=== PATIENT | female | born 1950 | race Caucasian/White ===

== ENCOUNTER 2019-06-20 14:14 | Inpatient (IN) | payer MEDICARE, OTHER ==
[~2019-06-20] VITALS: Ht 165.1 cm; Wt 84.5 kg
[2019-06-20] MEDS ORDERED: SODIUM CHLORIDE 0.9% 500 ML IVB ONE (14:43)
[2019-06-20] MEDS ORDERED: KETOROLAC TROMETH 15 mg/ml 1ML VL IV ONE (14:45)
[2019-06-20] MEDS ORDERED: ONDANSETRON HCL 4 MG/2 ML VIAL IV ONE (14:45)
[2019-06-20] MEDS ORDERED: KETOROLAC TROMETH 30 MG/ML 1ML VIAL ONE (15:14)
[2019-06-20 15:18] LABS: Basophils # (auto) 0.1 10 ^3/uL (0-0.2); Basophils % (auto) 0.6 % (0.0-2.0); Eosinophils # (auto) 0 10 ^3/uL (0-0.8); Hematocrit 47.4 % (36.0-46.0); Hemoglobin 14.9 g/dL (12.2-16.2); Lymphocytes # (auto) 2.8 10 ^3/uL (0.4-5.4); Lymphocytes % (auto) 20.1 % (10.0-50.0); Mean Corpuscular Hemoglobin 27.1 pg (28.0-32.0); Mean Corpuscular Hgb Conc. 31.5 g/dL (32.0-36.0); Mean Corpuscular Volume 85.8 fL (80.0-100.0); Monocytes # (auto) 1.5 10 ^3/uL (0-1.3); Monocytes % (auto) 10.8 % (0.0-12.0); Neutrophils # (auto) 9.7 10 ^3/uL (1.6-8.6); Neutrophils % (auto) 68.5 % (37.0-80.0); Platelet Count (auto) 344 10^3/uL (140-450); Red Blood Cells 5.52 10^6/uL (4.0-5.20); Red Cell Distribution Width 14.7 % (11.8-14.3); White Blood Cell 14.2 10^3/uL (4.4-10.8)
[2019-06-20 15:36] LABS: Alanine Aminotransferase 28 U/L (13-56); Albumin 3.9 g/dL (3.4-5.0); Anion Gap 10 (5-15); Aspartate Aminotransferase 45 U/L (15-37); BUN/Creatinine Ratio 16.7; Blood Urea Nitrogen 16 mg/dL (7-18); Calcium 9.8 mg/dL (8.5-10.1); Carbon Dioxide 22 mmol/L (21-32); Chloride 107 mmol/L (98-107); GFR African American 74 mL/min; GFR Non-African American 61 mL/min; Glucose 126 mg/dL (74-106); Lipase 165 U/L (73-393); Magnesium 2.4 mg/dL (1.6-2.6); Potassium 3.3 mmol/L (3.5-5.1); Sodium 139 mmol/L (136-145)
[2019-06-20 15:41] LABS: Alkaline Phosphatase 109 U/L (45-117); Bilirubin, Total 0.9 mg/dL (0.2-1.0); Total Protein 8.4 g/dL (6.4-8.2)
[2019-06-20] MEDS ORDERED: SODIUM CHLORIDE 0.9% 1,000 ML IV SCH (16:36)
[2019-06-20] MEDS ORDERED: METOCLOPRAMIDE HCL 5MG/ml INJ 2ml VIAL IV PRN (16:45)
[2019-06-20] MEDS ORDERED: MAGNESIUM SULFATE 1GM/100ML 100 ML IV ONE (16:45)
[2019-06-20] MEDS ORDERED: POTASSIUM CHL 20MEQ/100ML 100 ML IV ONE (16:45)
[2019-06-20] MEDS ORDERED: DOCUSATE SOD 100 MG CAP PO PRN (16:45)
[2019-06-20] MEDS ORDERED: ALUM & MAG HYDROX-SIMETH LIQ(MAALOX) 30 ML PO PRN (16:45)
[2019-06-20] MEDS ORDERED: hydrALAZINE HCL 20 MG/ML VL IV PRN (16:45)
[2019-06-20] MEDS ORDERED: MORPHINE SULF INJ 2 MG/ML SYRINGE 1ML IV PRN (16:45)
[2019-06-20] MEDS ORDERED: NITROGLYCERIN 0.4 MG SL TAB SL PRN (16:45)
[2019-06-20] MEDS ORDERED: LORazepam 0.5 MG TAB PO PRN (16:45)
[2019-06-20] MEDS ORDERED: POTASSIUM CHL 20 Meq TABLET PO ONE (16:45)
[2019-06-20 17:16] LABS: Urine Bacteria NONE SEEN /hpf (None Seen); Urine Blood Negative /uL (Negative); Urine Mucus FEW (None Seen); Urine Specific Gravity 1.031 (1.001-1.035); Urine WBC 11 /hpf (0 - 5)
[2019-06-20 17:26] LABS: Amphetamine Screen, Urine NEGATIVE (NEGATIVE); Barbiturate Scree,Urine NEGATIVE (NEGATIVE); Benzodiazephine Screen, Urine NEGATIVE (NEGATIVE); Cannabinoid Screen, Urine POSITIVE (NEGATIVE); Cocaine Screen, Urine NEGATIVE (NEGATIVE); Opiate Scree,Urine NEGATIVE (NEGATIVE); Phencyclidine Screen, Urine NEGATIVE (NEGATIVE)
[2019-06-20 18:13] LABS: Cholesterol 221 mg/dL (< 200)
[2019-06-20 18:17] LABS: HDL Cholesterol 46 mg/dL (40-59); LDL Cholesterol 141 mg/dL (< 100); Triglycerides 185 mg/dL (< 150)
[2019-06-20] MEDS: MORPHINE SULF INJ 2 MG/ML SYRINGE 1ML IV PRN (19:05)
[2019-06-20] MEDS ORDERED: ONDANSETRON HCL 4 MG/2 ML VIAL IV PRN (19:15)
[2019-06-20] MEDS ORDERED: cloNIDine HCL 0.1 MG TAB PO PRN (19:15)
[2019-06-20] MEDS: SOD CHL 0.45% WITH 20MEQ KCL 1,000 ML IV SCH (19:15)
[2019-06-20] MEDS ORDERED: cloNIDine HCL 0.1 MG TAB PO ONE (19:15)
[2019-06-20] MEDS ORDERED: ALPRAZolam 0.5 MG TAB PO ONE (19:15)
[2019-06-20] MEDS ORDERED: LISINOPRIL 20 MG TAB PO ONE (19:15)
--- NOTE | 2019-06-20 20:17 | NUR ---
Telemetry admit from ER RENAN OROZCO admitted to Telemetry unit after SBAR received. Patient oriented to CHESTER RAYGOZA RN primary RN, unit, room, bed, and unit policies regarding patient care and visiting hours. Patient now on continuous telemetry monitoring, tele box # 32 and telemetry reading on arrival to unit is sinus rhythm. Patient weighed by bed scale and encouraged to call if they need something. All questions and concerns addressed, patient verbalized understanding.
[2019-06-20 22:00] VITALS: BP 163/80
--- NOTE | 2019-06-20 22:40 | NUR ---
IV REMOVAL IV to left wrist found to be dislodged. Catheter is fully intact. Pressure dressing applied.
--- NOTE | 2019-06-20 22:45 | NUR ---
IV insertion IV access obtained, via clean sterile technique by inserting 22 gauge catheter at right wrist after 1 attempt. IV secured properly. No trauma to site. Patient tolerated well.
[2019-06-20] MEDS: GABAPENTIN 300 MG CAP PO SCH (22:51)
[2019-06-20] MEDS: QUEtiapine FUMARATE 100 MG TAB PO SCH (22:52)
[2019-06-20] MEDS: ATORVASTATIN 20 MG TAB PO SCH (22:52)
[2019-06-20] MEDS: TOPIRAMATE 25 MG TAB PO SCH (22:53)
[2019-06-20] MEDS: metroNIDAZOLE 500MG/100ML 100 ML IV SCH (22:54)
[2019-06-20] MEDS: CIPROFLOXACIN 400MG/200ML 200 ML IV SCH (22:54)
--- NOTE | 2019-06-20 23:25 | NUR ---
FAMILY Spoke with patient's , Kp, who reports that patient has a history of CKD, UTIs, and prescription drug abuse. Updated Kp on POC and all questions answered.
[2019-06-20] MEDS ORDERED: DULO60CA PO (23:46)
[2019-06-20] MEDS ORDERED: ESCI20TA PO (23:46)
[2019-06-20] MEDS ORDERED: BENA40TA83 PO (23:46)
[2019-06-20] MEDS ORDERED: GABA300C10 PO (23:46)
[2019-06-20] MEDS ORDERED: ATOR40TA52 PO (23:46)
[2019-06-20] MEDS ORDERED: ALPR0.5T7 PO (23:46)
[2019-06-20] MEDS ORDERED: TRAZ-181 PO (23:46)
[2019-06-21 00:05] VITALS: BP 163/80
[2019-06-21 05:24] VITALS: BP 122/59
[2019-06-21] MEDS: metroNIDAZOLE 500MG/100ML 100 ML IV SCH (06:16)
[2019-06-21] MEDS: GABAPENTIN 300 MG CAP PO SCH ×3 (06:16→22:14)
[2019-06-21 06:30] LABS: Basophils # (auto) 0.1 10 ^3/uL (0-0.2); Basophils % (auto) 0.5 % (0.0-2.0); Eosinophils # (auto) 0.1 10 ^3/uL (0-0.8); Eosinophils % (auto) 0.5 % (0.0-7.0); Hematocrit 36.4 % (36.0-46.0); Hemoglobin 11.8 g/dL (12.2-16.2); Lymphocytes % (auto) 29.1 % (10.0-50.0); Mean Corpuscular Hemoglobin 27.9 pg (28.0-32.0); Mean Corpuscular Hgb Conc. 32.5 g/dL (32.0-36.0); Monocytes # (auto) 1.4 10 ^3/uL (0-1.3); Monocytes % (auto) 14.1 % (0.0-12.0); Neutrophils # (auto) 5.7 10 ^3/uL (1.6-8.6); Neutrophils % (auto) 55.8 % (37.0-80.0); Platelet Count (auto) 241 10^3/uL (140-450); Red Blood Cells 4.24 10^6/uL (4.0-5.20); Red Cell Distribution Width 14.9 % (11.8-14.3); White Blood Cell 10.2 10^3/uL (4.4-10.8)
[2019-06-21 06:51] LABS: Chloride 113 mmol/L (98-107); Potassium 4.1 mmol/L (3.5-5.1); Sodium 139 mmol/L (136-145)
[2019-06-21 07:06] LABS: Alanine Aminotransferase 25 U/L (13-56); Alkaline Phosphatase 84 U/L (45-117); Anion Gap 7 (5-15); Aspartate Aminotransferase 42 U/L (15-37); Bilirubin, Total 0.7 mg/dL (0.2-1.0); Blood Urea Nitrogen 17 mg/dL (7-18); Calcium 8.5 mg/dL (8.5-10.1); Carbon Dioxide 19 mmol/L (21-32); Cholesterol 176 mg/dL (< 200); Creatine Kinase IFCC 321 U/L (26-192); GFR African American 66 mL/min; GFR Non-African American 54 mL/min; Glucose 95 mg/dL (74-106); HDL Cholesterol 41 mg/dL (40-59); LDL Cholesterol 110 mg/dL (< 100); Magnesium 2.7 mg/dL (1.6-2.6); Phosphorus 2.8 mg/dL (2.5-4.90); Total Protein 6.5 g/dL (6.4-8.2); Triglycerides 161 mg/dL (< 150); Uric Acid 4.5 mg/dL (2.6-6.0)
[2019-06-21 07:38] LABS: INR 1.07 (0.9-1.15); Partial Thromboplastin Time 27.6 sec (23.64-32.05)
--- NOTE | 2019-06-21 07:49 | NUR ---
RECEIVED PATIENT RESTING AND SLEEPING, NOT IN DISTRESS, HEAD OF BED ELEVATED, BED ON LOW POSITION, RAILS UP, CALL LIGHT ON REACH, WILL CONTINUE MONITORING.
[2019-06-21] MEDS: HYDROcodone-ACET 5/325MG TAB PO PRN ×2 (07:58→19:58)
--- NOTE | 2019-06-21 08:00 | NUR ---
ALERT AND ORIENTED, NOT IN DISTRESS, CLEAR SOUND IN BILATERAL UPPER AND DIMINISHED IN LOWER LUNG LOBES RR=18 SAT=96%, DEEP BREATHING AND COUGHING ENCOURAGED, DEMONSTRATED AND VERBALIZED UNDERSTANDING, DENIED CHEST PAIN AND SOB, SR R=62 ON TELE MONITOR, ABDOMEN SOFT WITH ACTIVE BS, LAST BM=06/20/19 REPORTED, SKIN DRY AND INTACT, WARM TO TOUCH, HEAD OF BED ELEVATED, BED ON LOW POSITION, RAILS UP X2, CALL LIGHTS ON REACH, WILL CONTINUE MONITORING.
[2019-06-21] MEDS: SOD CHL 0.45% WITH 20MEQ KCL 1,000 ML IV SCH ×2 (08:57→22:30)
[2019-06-21 09:21] VITALS: BP 113/56
[2019-06-21] MEDS ORDERED: ASPirin 81 mg TAB PO SCH (10:00)
[2019-06-21] MEDS ORDERED: LISINOPRIL 20 MG TAB PO SCH (10:00)
[2019-06-21] MEDS: TOPIRAMATE 25 MG TAB PO SCH ×2 (10:40→22:14)
[2019-06-21] MEDS: ALPRAZolam 0.5 MG TAB PO SCH ×2 (10:41→22:15)
[2019-06-21] MEDS: DULoxetine HCL 30 MG CAP PO SCH (10:42)
[2019-06-21] MEDS: CIPROFLOXACIN 400MG/200ML 200 ML IV SCH (10:49)
[2019-06-21] MEDS ORDERED: PANTOPRAZOLE 40 MG/10 ML VIAL INJ IV ONE (11:45)
[2019-06-21 13:00] VITALS: BP 118/50
--- NOTE | 2019-06-21 13:52 | NUR ---
Nutrition Assessment Notes Please refer to link for full assessment notes. Est Energy needs: 9790-9261 kcals (20-23 kcal/kgBW) Est Protein needs: 64-80 gms/day (0.8-1.0 gm/kgBW) Will continue to monitor and reassess prn. Addendum: 06/21/19 at [address] Amended: Links added.
--- NOTE | 2019-06-21 15:15 | NUR ---
PULL OUT IV SITE FROM RT. HAND, NEW SITE LIVE 22 WAS INSERTED ON RT. LOWER ARM, TOLERATED WELL, WILL CONTINUE MONITORING.
[2019-06-21 16:58] VITALS: BP 136/71
--- NOTE | 2019-06-21 19:58 | NUR ---
Patient complains of migraine headache at 08/01, [place] PO given.
--- NOTE | 2019-06-21 20:03 | NUR ---
REPORT WAS GIVEN TO THE INTERVENTIONAL PHYSICIAN RN, HEAD OF BED ELEVATED, BED ON LOW POSITION, RAILS UP X2, CALL LIGHT ON REACH.
--- NOTE | 2019-06-21 21:10 | NUR ---
Latest pain level is 3/10, patient comfortable, continue care.
[2019-06-21 21:44] VITALS: BP 131/65
[2019-06-21] MEDS: LACTULOSE 20Gm/30ML SOLN PO SCH (22:13)
[2019-06-21] MEDS: QUEtiapine FUMARATE 100 MG TAB PO SCH (22:14)
[2019-06-21] MEDS: ATORVASTATIN 20 MG TAB PO SCH (22:14)
[2019-06-22] VITALS (7 sets, daily range): BP systolic 129–153; BP diastolic 64–91
[2019-06-22 05:15] LABS: Basophils # (auto) 0.1 10 ^3/uL (0-0.2); Basophils % (auto) 1.1 % (0.0-2.0); Eosinophils # (auto) 0.2 10 ^3/uL (0-0.8); Hemoglobin 12.6 g/dL (12.2-16.2); Lymphocytes # (auto) 2.6 10 ^3/uL (0.4-5.4); Lymphocytes % (auto) 35.2 % (10.0-50.0); Mean Corpuscular Hgb Conc. 32.4 g/dL (32.0-36.0); Mean Corpuscular Volume 86.5 fL (80.0-100.0); Monocytes # (auto) 0.9 10 ^3/uL (0-1.3); Neutrophils # (auto) 3.6 10 ^3/uL (1.6-8.6); Neutrophils % (auto) 48.7 % (37.0-80.0); Nucleated Red Blood Cells % 0.1 %; Platelet Count (auto) 210 10^3/uL (140-450); Red Blood Cells 4.51 10^6/uL (4.0-5.20); Red Cell Distribution Width 15.3 % (11.8-14.3); White Blood Cell 7.4 10^3/uL (4.4-10.8)
[2019-06-22 05:35] LABS: BUN/Creatinine Ratio 12.1; Calcium 8.3 mg/dL (8.5-10.1); Potassium 4.2 mmol/L (3.5-5.1)
[2019-06-22] MEDS: GABAPENTIN 300 MG CAP PO SCH ×3 (06:03→22:01)
[2019-06-22] MEDS: cefTRIAXone 1GM/50ML D5W 50 ML IV SCH (09:46)
[2019-06-22] MEDS: LISINOPRIL 20 MG TAB PO SCH (09:47)
[2019-06-22] MEDS: ALPRAZolam 0.5 MG TAB PO SCH ×2 (09:48→22:02)
[2019-06-22] MEDS: TOPIRAMATE 25 MG TAB PO SCH ×2 (09:49→22:01)
[2019-06-22] MEDS: DULoxetine HCL 30 MG CAP PO SCH (09:49)
[2019-06-22] MEDS: PANTOPRAZOLE 40 MG/10 ML VIAL INJ IV SCH (09:50)
[2019-06-22] MEDS: HYDROcodone-ACET 5/325MG TAB PO PRN ×2 (09:50→18:22)
[2019-06-22] MEDS: LACTULOSE 20Gm/30ML SOLN PO SCH ×2 (10:04→22:00)
[2019-06-22] MEDS: SOD CHL 0.45% WITH 20MEQ KCL 1,000 ML IV SCH (11:15)
[2019-06-22] MEDS: MORPHINE SULF INJ 2 MG/ML SYRINGE 1ML IV PRN (13:59)
--- NOTE | 2019-06-22 16:00 | NUR ---
PT 1st visit, patient was asleep. 2nd visit, patient c/o [place] and requested to have her medication first. Addendum: 06/22/19 at 1603 by TARIQ EPPERSON PTT Amended: Links added.
--- NOTE | 2019-06-22 19:15 | NUR ---
Opening Shift Note Received report from Rafael RODRIGUEZ. Assumed care of patient, awake and alert. No S/S of distress/SOB or pain. Instructed on POC and to call for assist PRN. Fall precaution measures in place,will continue to monitor for changes Q1hr and PRN.
[2019-06-22] MEDS: ATORVASTATIN 20 MG TAB PO SCH (22:01)
[2019-06-22] MEDS: QUEtiapine FUMARATE 100 MG TAB PO SCH (22:01)
--- NOTE | 2019-06-22 23:55 | NUR ---
Advised patient nothing by mouth after midnight for possible procedure tomorrow, verbalized understanding.
[2019-06-23] MEDS: SOD CHL 0.45% WITH 20MEQ KCL 1,000 ML IV SCH ×2 (00:35→12:47)
[2019-06-23 05:05] VITALS: BP 113/79
[2019-06-23] MEDS: GABAPENTIN 300 MG CAP PO SCH ×2 (05:30→14:13)
[2019-06-23] MEDS: MORPHINE SULF INJ 2 MG/ML SYRINGE 1ML IV PRN (05:30)
--- NOTE | 2019-06-23 07:35 | NUR ---
Patient ambulated to the bathroom using walker. With bedside commode that patient refused to use.
[2019-06-23] MEDS: HYDROcodone-ACET 5/325MG TAB PO PRN ×2 (07:54→14:14)
--- NOTE | 2019-06-23 07:54 | NUR ---
Patient stated she has headache. Spring 5/325 PO given with small sips of water.
[2019-06-23 08:20] VITALS: BP 117/68
--- NOTE | 2019-06-23 08:32 | NUR ---
Reji Springer called for GI Consult. said Dr. Roland called her regarding the patient. Colin Springer. to do an EGD today.
[2019-06-23] MEDS: cefTRIAXone 1GM/50ML D5W 50 ML IV SCH (09:19)
[2019-06-23] MEDS ORDERED: LIDOCAINE VISCOUS 2% 15ML UD ONE (09:24)
[2019-06-23] MEDS ORDERED: SODIUM CHLORIDE LOCK 10 ML ONE (09:24)
[2019-06-23] MEDS ORDERED: fentaNYL CITRATE 100 MCG/2 ML VL ONE (09:24)
--- NOTE | 2019-06-23 09:25 | NUR ---
Transferred patient via bed to Pre Op for EGD. Patient awake, oriented x4, no acute distress noted. IV line on the left hand intact and patent. Endorsed patient to Pre Op RN Bailey.
[2019-06-23] MEDS: MIDAZOLAM HCL 5 MG/ML-1ML VIAL ONE ×2 (09:56→09:59)
[2019-06-23] MEDS: LACTULOSE 20Gm/30ML SOLN PO SCH (10:00)
--- NOTE | 2019-06-23 10:34 | NUR ---
Received report from ASSEMBLER FAUCETS Mai that patient is going back to room post-EGD, biopsy done, found gastritis and hiatal hernia, patient will be on Clear Liquids as per Colin Springer. Waiting for the patient from OR/PACU.
--- NOTE | 2019-06-23 10:41 | NUR ---
Full Liquid diet as ordered.
--- NOTE | 2019-06-23 10:46 | NUR ---
Patient back to room post-EGD. Patient awake, oriented x4.
--- NOTE | 2019-06-23 10:52 | NUR ---
Dr. Roland at bedside. MD to discharge the patient today.
[2019-06-23] MEDS: PANTOPRAZOLE 40 MG/10 ML VIAL INJ IV SCH (10:57)
[2019-06-23] MEDS: DULoxetine HCL 30 MG CAP PO SCH (10:57)
[2019-06-23] MEDS: LISINOPRIL 20 MG TAB PO SCH (10:58)
[2019-06-23] MEDS: TOPIRAMATE 25 MG TAB PO SCH (10:58)
[2019-06-23] MEDS: ALPRAZolam 0.5 MG TAB PO SCH (10:59)
[2019-06-23] MEDS ORDERED: SUCRALFATE 1 GM/10 ML ORAL SUSP PO SCH (11:30)
[2019-06-23 12:06] VITALS: BP 117/68
[2019-06-23 12:30] VITALS: BP 110/71
[2019-06-23 12:36] VITALS: BP 117/68
--- NOTE | 2019-06-23 13:45 | NUR ---
Patient to call her to pick her up.
--- NOTE | 2019-06-23 14:45 | NUR ---
Discharge instructions given as ordered. Encourage to follow up with PMD as instructed. All questions and concerns addressed. Patient verbalized understanding. Medication reconciliation form completed and copy given to patient. IV removed with catheter intact, pressure dressing applied. Patient taken to vehicle via wheelchair with all personal belongings, accompanied by staff. Family member to fruit or nut picker the patient at the main lobby. No distress noted at time of departure.
== END 2019-06-23 14:45 | disposition home or self-care (01) | DRG 871 ==
LOC: ER 14:14 → TELE 14:15 → TELE-CENTR 20:22 → CENTRAL 06-21 12:01
PROVIDERS: ADMIT Hospitalist; ATTEND Internal Medicine
PROC: 0DB88ZX Excision of Small Intestine, Via Natural or Artificial Opening Endoscopic, Diagnostic (ICD-10-PCS; 2019-06-23)
PROC: 0DB58ZX Excision of Esophagus, Via Natural or Artificial Opening Endoscopic, Diagnostic (ICD-10-PCS; principal; 2019-06-23 09:47)
DX: A41.9 Sepsis, unspecified organism (principal); G93.41 Metabolic encephalopathy; N39.0 Urinary tract infection, site not specified; I16.1 Hypertensive emergency; I16.9 Hypertensive crisis, unspecified; N12 Tubulo-interstitial nephritis, not specified as acute or chronic; D72.829 Elevated white blood cell count, unspecified; E87.6 Hypokalemia; K57.30 Diverticulosis of large intestine without perforation or abscess without bleeding; K52.9 Noninfective gastroenteritis and colitis, unspecified; M79.7 Fibromyalgia; K29.80 Duodenitis without bleeding; F12.90 Cannabis use, unspecified, uncomplicated; K29.70 Gastritis, unspecified, without bleeding; Z90.49 Acquired absence of other specified parts of digestive tract
CPT/HCPCS: 36415; 43239; 74176; 80048; 80053; 80061; 80307; 81001; 82085; 82140; 82306; 82550; 82607; 83036; 83605; 83690; 83735; 83880; 84100; 84443; 84484; 84550; 85025; 85045; 85610; 85730; 87040; 87086; 93005; 93306; 93886; 96361; 96365; 96367; 96375; 97163; C9113; G0378; J0696; J1885; J2250; J2405; J3480; J3490

== ENCOUNTER 2019-09-15 18:16 | Emergency (ER) | payer MEDICARE, OTHER ==
[~2019-09-15] VITALS: Ht 162.6 cm; Wt 85.7 kg
[~2019-09-15 18:16] MED LIST: ALPR0.5T7 PO; ATOR40TA52 PO; BENA40TA83 PO; DULO60CA PO; ESCI20TA PO; GABA300C10 PO; TRAZ-181 PO
[2019-09-15 18:27] VITALS: BP 186/86
== END 2019-09-15 21:14 | disposition home or self-care (01) ==
LOC: ER 18:16
DX: S46.911A Strain of unspecified muscle, fascia and tendon at shoulder and upper arm level, right arm, initial encounter (principal); M75.21 Bicipital tendinitis, right shoulder; E11.9 Type 2 diabetes mellitus without complications; I10 Essential (primary) hypertension; Z90.49 Acquired absence of other specified parts of digestive tract; W18.39XA Other fall on same level, initial encounter; Y93.89 Activity, other specified; Y92.89 Other specified places as the place of occurrence of the external cause; Y99.8 Other external cause status
CPT/HCPCS: 73030

== ENCOUNTER 2021-01-04 02:16 | Emergency (ER) | payer MEDICARE, OTHER ==
[~2021-01-04] VITALS: Ht 162.6 cm; Wt 131.5 kg
[2021-01-04] MEDS ORDERED: KETOROLAC TROMETH 60MG/2ML VIAL IM ONE (04:45)
[2021-01-04] MEDS ORDERED: TETANUS-DIPTH-ACEL PERTUSSIS 0.5ML SYR Tdap IM ONE (04:45)
[2021-01-04 06:01] VITALS: BP 120/89
== END 2021-01-04 06:13 | disposition home or self-care (01) ==
LOC: ER 02:16
DX: S50.811A Abrasion of right forearm, initial encounter (principal); E66.9 Obesity, unspecified; I10 Essential (primary) hypertension; E11.9 Type 2 diabetes mellitus without complications; Z68.42 Body mass index [BMI] 45.0-49.9, adult; Z90.49 Acquired absence of other specified parts of digestive tract; Z79.899 Other long term (current) drug therapy; W18.39XA Other fall on same level, initial encounter; Y93.89 Activity, other specified; Y92.89 Other specified places as the place of occurrence of the external cause; Y99.8 Other external cause status
CPT/HCPCS: 73060; 73110; 90471; 90715; 96372; 99284; J1885

== ENCOUNTER 2021-05-26 04:30 | Inpatient (IN) | payer MEDICARE, OTHER ==
[~2021-05-26] VITALS: Ht 167.6 cm; Wt 97.0 kg
[2021-05-26] VITALS (17 sets, daily range): BP systolic 108–159; BP diastolic 53–97
[2021-05-26] MEDS ORDERED: LABETALOL HCL 5 MG/ML 4ML SYRINGE IV ONE (05:00)
[2021-05-26 06:28] LABS: Basophils # (auto) 0.1 10 ^3/uL (0-0.2); Basophils % (auto) 1.1 % (0.0-2.0); Eosinophils # (auto) 0.3 10 ^3/uL (0-0.8); Eosinophils % (auto) 3.3 % (0.0-7.0); Hematocrit 42.9 % (36.0-46.0); Hemoglobin 14.4 g/dL (12.2-16.2); Lymphocytes # (auto) 3.3 10 ^3/uL (0.4-5.4); Lymphocytes % (auto) 41.4 % (10.0-50.0); Mean Corpuscular Hemoglobin 27.1 pg (28.0-32.0); Mean Corpuscular Hgb Conc. 33.4 g/dL (32.0-36.0); Mean Corpuscular Volume 81.1 fL (80.0-100.0); Monocytes # (auto) 0.8 10 ^3/uL (0-1.3); Monocytes % (auto) 10.1 % (0.0-12.0); Neutrophils # (auto) 3.5 10 ^3/uL (1.6-8.6); Neutrophils % (auto) 44.1 % (37.0-80.0); Nucleated Red Blood Cells % 0.2 %; Red Blood Cells 5.29 10^6/uL (4.0-5.20); Red Cell Distribution Width 15.5 % (11.8-14.3); White Blood Cell 7.9 10^3/uL (4.4-10.8)
[2021-05-26 07:23] LABS: Albumin 3.9 g/dL (3.4-5.0); BUN/Creatinine Ratio 12.3; Potassium 3.4 mmol/L (3.5-5.1)
[2021-05-26 07:27] LABS: Bilirubin, Total 0.3 mg/dL (0.2-1.0); Total Protein 8.1 g/dL (6.4-8.2)
[2021-05-26] MEDS ORDERED: hydrALAZINE HCL 20 MG/ML VL IV ONE (08:45)
[2021-05-26] MEDS ORDERED: HYDROcodone-ACET 5/325MG TAB PO ONE ×2 (10:15→13:00)
[2021-05-26] MEDS ORDERED: MORPHINE SULFATE INJECTION 2 MG/ML SYRG IV PRN (10:15)
[2021-05-26] MEDS ORDERED: NITROGLYCERIN 0.4 MG SL TAB SL PRN (10:15)
[2021-05-26] MEDS ORDERED: MAGNESIUM SULFATE 1GM/100ML 100 ML IV ONE (10:30)
[2021-05-26] MEDS ORDERED: POTASSIUM CHL 20 Meq TABLET PO ONE (10:30)
[2021-05-26 11:27] LABS: Urine Bacteria FEW /hpf (None Seen); Urine Blood Negative /uL (Negative); Urine Specific Gravity 1.011 (1.001-1.035); Urine WBC 2 /hpf (0 - 5)
[2021-05-26] MEDS ORDERED: METOPROLOL SUCCINATE XL 50 MG TAB PO ONE (12:45)
[2021-05-26] MEDS ORDERED: cefTRIAXone 1GM/50ML D5W 50 ML IV ONE ×2 (12:45→13:00)
[2021-05-26] MEDS ORDERED: LABETALOL HCL 5 MG/ML 4ML SYRINGE IV PRN (12:45)
[2021-05-26] MEDS ORDERED: DOCUSATE SOD 100 MG CAP PO PRN (13:00)
[2021-05-26] MEDS ORDERED: IPRATROPIUM BROM 0.5 MG/2.5ML INH SOL NEB ONE (13:00)
[2021-05-26] MEDS ORDERED: LACTULOSE 20Gm/30ML SOLN PO PRN (13:00)
[2021-05-26] MEDS ORDERED: ONDANSETRON HCL 4 MG/2 ML VIAL IV PRN (13:00)
[2021-05-26] MEDS: LOSARTAN POTASSIUM 50 MG TAB PO SCH ×2 (13:04→21:28)
[2021-05-26] MEDS: LABETALOL HCL 200 MG TAB PO SCH ×2 (13:04→21:28)
[2021-05-26] MEDS: amLODIPine BESYLATE 5 MG TAB PO SCH (13:14)
[2021-05-26 13:17] LABS: Magnesium 2.4 mg/dL (1.6-2.6); Phosphorus 2.9 mg/dL (2.5-4.90)
[2021-05-26] MEDS: GABAPENTIN 300 MG CAP PO SCH ×2 (14:14→21:29)
[2021-05-26 15:18] LABS: INR 1.04 (0.9-1.15); Partial Thromboplastin Time 26.5 sec (23.6-33.0)
[2021-05-26] MEDS: HYDROcodone-ACET 5/325MG TAB PO PRN ×2 (17:14→21:29)
[2021-05-26] MEDS: FUROSEMIDE 20 MG/2 ML VIAL IV SCH (18:40)
[2021-05-26] MEDS: POTASSIUM CHL 20 Meq TABLET PO SCH (21:27)
[2021-05-26] MEDS: ALPRAZolam 0.5 MG TAB PO PRN (21:28)
[2021-05-26] MEDS ORDERED: ATORVASTATIN 20 MG TAB PO SCH (22:00)
[2021-05-27] VITALS (9 sets, daily range): BP systolic 104–149; BP diastolic 45–84
[2021-05-27] MEDS: ACETAMINOPHEN 325 MG TAB PO PRN ×2 (00:26→08:25)
[2021-05-27] MEDS: HYDROcodone-ACET 5/325MG TAB PO PRN ×3 (04:49→20:01)
[2021-05-27 05:18] LABS: Basophils # (auto) 0.1 10 ^3/uL (0-0.2); Basophils % (auto) 0.7 % (0.0-2.0); Eosinophils # (auto) 0.3 10 ^3/uL (0-0.8); Eosinophils % (auto) 3.3 % (0.0-7.0); Lymphocytes % (auto) 41.6 % (10.0-50.0); Monocytes # (auto) 0.9 10 ^3/uL (0-1.3); Nucleated Red Blood Cells % 0.1 %; Red Blood Cells 4.89 10^6/uL (4.0-5.20)
[2021-05-27 05:22] LABS: Hematocrit 39.4 % (36.0-46.0); Lymphocytes # (auto) 3.6 10 ^3/uL (0.4-5.4); Mean Corpuscular Hemoglobin 26.6 pg (28.0-32.0); Mean Corpuscular Hgb Conc. 33.1 g/dL (32.0-36.0); Mean Corpuscular Volume 80.5 fL (80.0-100.0); Monocytes % (auto) 10.2 % (0.0-12.0); Neutrophils # (auto) 3.8 10 ^3/uL (1.6-8.6); Neutrophils % (auto) 44.2 % (37.0-80.0); Red Cell Distribution Width 15.9 % (11.8-14.3); White Blood Cell 8.5 10^3/uL (4.4-10.8)
[2021-05-27 05:33] LABS: INR 1.05 (0.9-1.15); Partial Thromboplastin Time 25.7 sec (23.6-33.0)
[2021-05-27] MEDS: IPRATROPIUM BROM 0.5 MG/2.5ML INH SOL NEB PRN ×2 (05:38→18:59)
[2021-05-27 05:40] LABS: Magnesium 2.4 mg/dL (1.6-2.6); Uric Acid 6.1 mg/dL (2.6-6.0)
[2021-05-27 05:46] LABS: Albumin 3.4 g/dL (3.4-5.0); BUN/Creatinine Ratio 11.6; Bilirubin, Total 0.4 mg/dL (0.2-1.0); CRP High Sensitivity 0.16 mg/dL (< 0.3); Calcium 8.9 mg/dL (8.5-10.1); Phosphorus 4.3 mg/dL (2.5-4.90); Total Protein 7.2 g/dL (6.4-8.2)
[2021-05-27] MEDS: FUROSEMIDE 20 MG/2 ML VIAL IV SCH (06:19)
[2021-05-27] MEDS: GABAPENTIN 300 MG CAP PO SCH ×3 (06:19→21:54)
[2021-05-27 06:29] LABS: Potassium 3.4 mmol/L (3.5-5.1)
[2021-05-27] MEDS ORDERED: cefTRIAXone 1GM/50ML D5W 50 ML IV SCH ×2 (09:00)
[2021-05-27] MEDS ORDERED: NIFEdipine ER 30 MG TAB PO SCH (10:00)
[2021-05-27] MEDS: LABETALOL HCL 200 MG TAB PO SCH ×2 (10:00→10:48)
[2021-05-27] MEDS ORDERED: METOPROLOL SUCCINATE XL 50 MG TAB PO SCH (10:00)
[2021-05-27] MEDS: amLODIPine BESYLATE 5 MG TAB PO SCH (10:49)
[2021-05-27] MEDS: LOSARTAN POTASSIUM 50 MG TAB PO SCH ×2 (10:49→22:01)
[2021-05-27] MEDS: POTASSIUM CHL 20 Meq TABLET PO SCH (10:50)
[2021-05-27] MEDS: DULoxetine HCL 30 MG CAP PO SCH (10:52)
[2021-05-27] MEDS: ENOXAPARIN SOD 40 MG/0.4 ML SYRINGE SC SCH (10:52)
[2021-05-27 14:08] LABS: Urine Bacteria NONE SEEN /hpf (None Seen); Urine Blood Negative /uL (Negative); Urine Specific Gravity 1.006 (1.001-1.035); Urine WBC 2 /hpf (0 - 5)
[2021-05-27 14:14] LABS: Alcohol, Urine < 3.0 mg/dL (0-10); Amphetamine Screen, Urine NEGATIVE (NEGATIVE); Barbiturate Scree,Urine NEGATIVE (NEGATIVE); Benzodiazephine Screen, Urine NEGATIVE (NEGATIVE); Cannabinoid Screen, Urine NEGATIVE (NEGATIVE); Cocaine Screen, Urine NEGATIVE (NEGATIVE); Opiate Scree,Urine NEGATIVE (NEGATIVE); Phencyclidine Screen, Urine NEGATIVE (NEGATIVE); Protein, Urine 6.8 mg/dL (0.0-11.9)
[2021-05-27] MEDS: ATORVASTATIN 20 MG TAB PO SCH (21:55)
[2021-05-27] MEDS: ALPRAZolam 0.5 MG TAB PO PRN (22:08)
[2021-05-28] VITALS (7 sets, daily range): BP systolic 107–147; BP diastolic 59–104
[2021-05-28] MEDS: HYDROcodone-ACET 5/325MG TAB PO PRN ×3 (01:33→22:13)
[2021-05-28] MEDS: GABAPENTIN 300 MG CAP PO SCH ×3 (05:34→22:13)
[2021-05-28 05:58] LABS: BUN/Creatinine Ratio 19.2; Calcium 9.2 mg/dL (8.5-10.1); Potassium 4.4 mmol/L (3.5-5.1)
[2021-05-28] MEDS: ALPRAZolam 0.5 MG TAB PO PRN ×2 (06:35→22:14)
[2021-05-28] MEDS: ACETAMINOPHEN 325 MG TAB PO PRN (06:35)
[2021-05-28] MEDS: DULoxetine HCL 30 MG CAP PO SCH (10:12)
[2021-05-28] MEDS: LOSARTAN POTASSIUM 50 MG TAB PO SCH ×2 (10:12→22:12)
[2021-05-28] MEDS: amLODIPine BESYLATE 5 MG TAB PO SCH (10:13)
[2021-05-28] MEDS: ENOXAPARIN SOD 40 MG/0.4 ML SYRINGE SC SCH (10:13)
[2021-05-28] MEDS ORDERED: AMLO-496 PO ×2 (13:08)
[2021-05-28] MEDS: MORPHINE SULFATE INJECTION 2 MG/ML SYRG IV PRN (15:14)
[2021-05-28] MEDS: IPRATROPIUM BROM 0.5 MG/2.5ML INH SOL NEB PRN (19:29)
[2021-05-28] MEDS ORDERED: LORazepam 2MG/ML-1ML VIAL IV PRN (21:00)
[2021-05-28] MEDS: SODIUM CHLORIDE 0.9% 1,000 ML IV SCH (21:23)
[2021-05-28] MEDS: DexAMETHasone INJECTION 10 MG in D5W 5% 50 ML IV SCH (22:11)
[2021-05-28] MEDS: ASPirin 81 mg TAB PO SCH (22:11)
[2021-05-28] MEDS: ATORVASTATIN 20 MG TAB PO SCH (22:12)
[2021-05-28] MEDS: METOCLOPRAMIDE HCL 10 MG TAB PO SCH (22:12)
[2021-05-28] MEDS: VALPROATE INJ 1,000 MG in D5W 5% 50 ML IV SCH (23:00)
[2021-05-29] MEDS: HYDROcodone-ACET 5/325MG TAB PO PRN ×3 (04:46→18:36)
[2021-05-29] MEDS: GABAPENTIN 300 MG CAP PO SCH ×3 (04:51→20:11)
[2021-05-29] MEDS: METOCLOPRAMIDE HCL 10 MG TAB PO SCH ×3 (04:51→20:14)
[2021-05-29 05:00] VITALS: BP 153/68
[2021-05-29 08:58] VITALS: BP 143/63
[2021-05-29] MEDS: ASPirin 81 mg TAB PO SCH (09:12)
[2021-05-29] MEDS: VALPROATE INJ 1,000 MG in D5W 5% 50 ML IV SCH ×2 (09:12→20:15)
[2021-05-29] MEDS: DULoxetine HCL 30 MG CAP PO SCH (09:13)
[2021-05-29] MEDS: LOSARTAN POTASSIUM 50 MG TAB PO SCH ×2 (09:13→22:56)
[2021-05-29] MEDS: ENOXAPARIN SOD 40 MG/0.4 ML SYRINGE SC SCH (09:14)
[2021-05-29] MEDS: amLODIPine BESYLATE 5 MG TAB PO SCH (09:14)
[2021-05-29] MEDS: DexAMETHasone INJECTION 10 MG in D5W 5% 50 ML IV SCH (10:30)
[2021-05-29 13:00] VITALS: BP 137/72
[2021-05-29] MEDS: SODIUM CHLORIDE 0.9% 1,000 ML IV SCH ×3 (13:00→20:16)
[2021-05-29 13:36] VITALS: BP 143/63
[2021-05-29 17:16] VITALS: BP 146/89
[2021-05-29 22:00] VITALS: BP 141/54
[2021-05-29] MEDS ORDERED: ATORVASTATIN 20 MG TAB PO SCH (22:00)
[2021-05-30 05:00] VITALS: BP 141/57
[2021-05-30] MEDS: GABAPENTIN 300 MG CAP PO SCH (05:48)
[2021-05-30] MEDS: METOCLOPRAMIDE HCL 10 MG TAB PO SCH (05:48)
[2021-05-30] MEDS: HYDROcodone-ACET 5/325MG TAB PO PRN (06:18)
[2021-05-30 06:30] LABS: BUN/Creatinine Ratio 18.4; Calcium 9.2 mg/dL (8.5-10.1); Potassium 4.6 mmol/L (3.5-5.1)
[2021-05-30] MEDS: SODIUM CHLORIDE 0.9% 1,000 ML IV SCH (06:44)
[2021-05-30 09:00] VITALS: BP 155/68
[2021-05-30] MEDS: ASPirin 81 mg TAB PO SCH (09:34)
[2021-05-30] MEDS: amLODIPine BESYLATE 5 MG TAB PO SCH (09:34)
[2021-05-30] MEDS: DULoxetine HCL 30 MG CAP PO SCH (09:34)
[2021-05-30] MEDS: VALPROATE INJ 1,000 MG in D5W 5% 50 ML IV SCH (09:34)
[2021-05-30] MEDS: ENOXAPARIN SOD 40 MG/0.4 ML SYRINGE SC SCH (09:35)
[2021-05-30] MEDS: LOSARTAN POTASSIUM 50 MG TAB PO SCH (10:09)
[2021-05-30] MEDS: MORPHINE SULFATE INJECTION 2 MG/ML SYRG IV PRN (10:28)
[2021-05-30] MEDS: DexAMETHasone INJECTION 10 MG in D5W 5% 50 ML IV SCH (11:00)
[2021-05-30 12:00] VITALS: BP 134/68
[2021-05-30] MEDS ORDERED: METO25TA36 PO ×2 (12:47)
[2021-05-30] MEDS ORDERED: AMLO-496 PO ×2 (12:47)
[2021-05-30] MEDS ORDERED: LOSA-39 PO ×2 (12:47)
[2021-05-30] MEDS ORDERED: ATOR20TA50 PO ×2 (12:47)
[2021-05-30] MEDS ORDERED: ASPI1TAB20 PO ×2 (12:47)
[2021-05-30 14:30] VITALS: BP 144/78
== END 2021-05-30 17:24 | disposition home health service (06) | DRG 64 ==
LOC: ER 04:30 → TELE 10:13 → DOU IN ICU 12:19 → TELE-CENTR 05-28 05:52
PROVIDERS: ADMIT Hospitalist; ATTEND Internal Medicine
DX: I63.9 Cerebral infarction, unspecified (principal); N17.0 Acute kidney failure with tubular necrosis; I16.1 Hypertensive emergency; N39.0 Urinary tract infection, site not specified; E66.9 Obesity, unspecified; E78.5 Hyperlipidemia, unspecified; F32.9 Major depressive disorder, single episode, unspecified; F41.9 Anxiety disorder, unspecified; M79.7 Fibromyalgia; Z20.822 Contact with and (suspected) exposure to COVID-19; E87.6 Hypokalemia; G43.009 Migraine without aura, not intractable, without status migrainosus; G47.10 Hypersomnia, unspecified; I49.3 Ventricular premature depolarization; H57.02 Anisocoria; Z79.899 Other long term (current) drug therapy; Z68.32 Body mass index [BMI] 32.0-32.9, adult; Z90.49 Acquired absence of other specified parts of digestive tract; I11.9 Hypertensive heart disease without heart failure
CPT/HCPCS: 36415; 70450; 70551; 71045; 71250; 80048; 80053; 80061; 80307; 81001; 83036; 83615; 83690; 83735; 83880; 84100; 84156; 84443; 84484; 84550; 85025; 85379; 85610; 85652; 85730; 86141; 87040; 87081; 87086; 93005; 93306; 93886; 94640; 96365; 96375; 97163; G0378; J0696; J1100; J2405; J3490; J7060

== ENCOUNTER 2021-05-31 09:46 | Emergency (ER) | payer MEDICARE, OTHER ==
[~2021-05-31] VITALS: Ht 162.6 cm; Wt 81.6 kg
[~2021-05-31 09:46] MED LIST changes: +AMLO-496 PO; +ASPI1TAB20 PO; +ATOR20TA50 PO; +LOSA-39 PO; +METO25TA36 PO
[2021-05-31 10:52] LABS: Basophils # (auto) 0.1 10 ^3/uL (0-0.2); Eosinophils # (auto) 0.1 10 ^3/uL (0-0.8); Mean Corpuscular Volume 81.3 fL (80.0-100.0); Neutrophils # (auto) 9.6 10 ^3/uL (1.6-8.6); Nucleated Red Blood Cells % 0.2 %
[2021-05-31 10:53] LABS: Basophils % (auto) 0.6 % (0.0-2.0); Eosinophils % (auto) 1.1 % (0.0-7.0); Hematocrit 43.8 % (36.0-46.0); Hemoglobin 14.5 g/dL (12.2-16.2); Lymphocytes # (auto) 2.3 10 ^3/uL (0.4-5.4); Lymphocytes % (auto) 16.9 % (10.0-50.0); Mean Corpuscular Hemoglobin 26.9 pg (28.0-32.0); Monocytes # (auto) 1.3 10 ^3/uL (0-1.3); Monocytes % (auto) 9.8 % (0.0-12.0); Neutrophils % (auto) 71.6 % (37.0-80.0); Red Blood Cells 5.38 10^6/uL (4.0-5.20); White Blood Cell 13.4 10^3/uL (4.4-10.8)
[2021-05-31 11:08] LABS: Albumin 3.8 g/dL (3.4-5.0); Calcium 9.6 mg/dL (8.5-10.1); Potassium 4.1 mmol/L (3.5-5.1)
[2021-05-31 11:11] LABS: BUN/Creatinine Ratio 12.6; Bilirubin, Total 0.8 mg/dL (0.2-1.0); Total Protein 8.3 g/dL (6.4-8.2)
[2021-05-31] MEDS ORDERED: SUMAtriptan SUCCINATE 6 MG/0.5 ML VL SC ONE (15:15)
[2021-05-31] MEDS ORDERED: LABETALOL HCL 5 MG/ML 4ML SYRINGE IV ONE ×2 (15:15→17:15)
[2021-05-31] MEDS ORDERED: ONDANSETRON ODT 4 MG TAB PO ONE (15:15)
[2021-05-31 15:39] LABS: Urine Bacteria FEW /hpf (None Seen); Urine Blood Negative /uL (Negative); Urine Specific Gravity 1.016 (1.001-1.035); Urine WBC 4 /hpf (0 - 5)
[2021-05-31] MEDS ORDERED: ONDANSETRON HCL 4 MG/2 ML VIAL IV ONE (16:00)
[2021-05-31 17:43] VITALS: BP 154/73
== END 2021-05-31 17:57 | disposition home or self-care (01) ==
LOC: ER 09:46
DX: I10 Essential (primary) hypertension (principal); G43.909 Migraine, unspecified, not intractable, without status migrainosus; R42 Dizziness and giddiness; E11.9 Type 2 diabetes mellitus without complications; Z90.49 Acquired absence of other specified parts of digestive tract; Z86.73 Personal history of transient ischemic attack (TIA), and cerebral infarction without residual deficits
CPT/HCPCS: 36415; 70450; 80053; 81001; 84484; 85025; 93005; 96372; 96374; 96375; 96376; 99285; J2405; J3030; J3490

== ENCOUNTER 2021-08-03 14:10 | Emergency (ER) | payer MEDICARE, OTHER ==
[~2021-08-03] VITALS: Ht 162.6 cm; Wt 85.7 kg
[~2021-08-03 14:10] MED LIST changes: -ATOR40TA52 PO; -BENA40TA83 PO
[2021-08-03 15:17] LABS: Basophils # (auto) 0.1 10 ^3/uL (0-0.2); Basophils % (auto) 1.4 % (0.0-2.0); Eosinophils # (auto) 0.2 10 ^3/uL (0-0.8); Hematocrit 36.4 % (36.0-46.0); Hemoglobin 12.1 g/dL (12.2-16.2); Lymphocytes # (auto) 2.2 10 ^3/uL (0.4-5.4); Lymphocytes % (auto) 28.6 % (10.0-50.0); Mean Corpuscular Hemoglobin 27.2 pg (28.0-32.0); Mean Corpuscular Hgb Conc. 33.2 g/dL (32.0-36.0); Mean Corpuscular Volume 81.8 fL (80.0-100.0); Monocytes # (auto) 0.9 10 ^3/uL (0-1.3); Monocytes % (auto) 11.1 % (0.0-12.0); Neutrophils # (auto) 4.3 10 ^3/uL (1.6-8.6); Neutrophils % (auto) 55.9 % (37.0-80.0); Nucleated Red Blood Cells % 0.2 %; Red Blood Cells 4.44 10^6/uL (4.0-5.20); Red Cell Distribution Width 15.9 % (11.8-14.3); White Blood Cell 7.7 10^3/uL (4.4-10.8)
[2021-08-03 15:37] LABS: Albumin 4.1 g/dL (3.4-5.0); Calcium 9.2 mg/dL (8.5-10.1); Potassium 4.1 mmol/L (3.5-5.1)
[2021-08-03 15:41] LABS: BUN/Creatinine Ratio 11.6; Bilirubin, Total 0.4 mg/dL (0.2-1.0)
[2021-08-03 16:30] LABS: INR 1.03 (0.9-1.15)
[2021-08-03] MEDS ORDERED: diphenhdrAMINE HCL 50 MG/1 ML VL IV ONE (16:30)
[2021-08-03] MEDS ORDERED: KETOROLAC TROMETH 30 MG/ML 1ML VIAL IV ONE (16:30)
[2021-08-03] MEDS ORDERED: METOCLOPRAMIDE HCL 5MG/ml INJ 2ml VIAL IV ONE (16:30)
[2021-08-03] MEDS ORDERED: DexAMETHasone SOD PHOS 10MG/1ML VIAL INJ IV ONE (16:30)
[2021-08-03] MEDS ORDERED: AMOX500T86 PO (18:52)
[2021-08-03] MEDS ORDERED: FLUT1SPR5 (18:52)
[2021-08-03] MEDS ORDERED: ACET-1156 PO (18:52)
[2021-08-03] MEDS ORDERED: CETI1TAB36 PO (18:52)
[2021-08-03] MEDS ORDERED: CLOT1CRE78 EX (18:52)
[2021-08-03 19:00] VITALS: BP 124/48
== END 2021-08-03 19:45 | disposition home or self-care (01) ==
LOC: ER 14:10
DX: R51.9 Headache, unspecified (principal); J01.90 Acute sinusitis, unspecified; R21 Rash and other nonspecific skin eruption; I10 Essential (primary) hypertension; E11.9 Type 2 diabetes mellitus without complications; Z86.73 Personal history of transient ischemic attack (TIA), and cerebral infarction without residual deficits; Z90.49 Acquired absence of other specified parts of digestive tract; Z79.82 Long term (current) use of aspirin; Z79.899 Other long term (current) drug therapy
CPT/HCPCS: 36415; 70450; 80053; 83735; 84484; 85025; 85610; 93005; 96374; 96375; 99285; J1100; J1200; J1885; J2765

== ENCOUNTER 2021-10-12 14:42 | Emergency (ER) | payer MEDICARE, OTHER ==
[~2021-10-12] VITALS: Ht 162.6 cm; Wt 92.3 kg
[~2021-10-12 14:42] MED LIST changes: +ACET-1156 PO; +AMOX500T86 PO; +CETI1TAB36 PO; +CLOT1CRE78 EX; +FLUT1SPR5
[2021-10-12] MEDS ORDERED: diphenhdrAMINE HCL 50 MG/1 ML VL IM ONE (16:00)
[2021-10-12] MEDS ORDERED: KETOROLAC TROMETH 60MG/2ML VIAL IM ONE (16:00)
[2021-10-12 16:57] LABS: Basophils # (auto) 0.1 10 ^3/uL (0-0.2); Eosinophils # (auto) 0.2 10 ^3/uL (0-0.8); Hemoglobin 11.7 g/dL (12.2-16.2); Lymphocytes # (auto) 1.6 10 ^3/uL (0.4-5.4); Lymphocytes % (auto) 27.3 % (10.0-50.0); Mean Corpuscular Hemoglobin 26.4 pg (28.0-32.0); Mean Corpuscular Hgb Conc. 31.6 g/dL (32.0-36.0); Mean Corpuscular Volume 83.5 fL (80.0-100.0); Monocytes # (auto) 0.7 10 ^3/uL (0-1.3); Monocytes % (auto) 11.5 % (0.0-12.0); Neutrophils # (auto) 3.2 10 ^3/uL (1.6-8.6); Neutrophils % (auto) 56.2 % (37.0-80.0); Red Blood Cells 4.43 10^6/uL (4.0-5.20); Red Cell Distribution Width 15.3 % (11.8-14.3); White Blood Cell 5.7 10^3/uL (4.4-10.8)
[2021-10-12 17:11] LABS: Albumin 3.7 g/dL (3.4-5.0); Calcium 8.7 mg/dL (8.5-10.1); Potassium 3.8 mmol/L (3.5-5.1)
[2021-10-12 17:12] LABS: INR 0.97 (0.9-1.15)
[2021-10-12 17:14] LABS: BUN/Creatinine Ratio 10.5; Bilirubin, Total 0.4 mg/dL (0.2-1.0); Total Protein 7.4 g/dL (6.4-8.2)
[2021-10-12 17:30] VITALS: BP 138/64
== END 2021-10-12 18:48 | disposition home or self-care (01) ==
LOC: ER 14:42
DX: S00.83XA Contusion of other part of head, initial encounter (principal); E11.9 Type 2 diabetes mellitus without complications; I10 Essential (primary) hypertension; Z90.49 Acquired absence of other specified parts of digestive tract; Z86.73 Personal history of transient ischemic attack (TIA), and cerebral infarction without residual deficits; X58.XXXA Exposure to other specified factors, initial encounter; Y93.89 Activity, other specified; Y92.89 Other specified places as the place of occurrence of the external cause; Y99.8 Other external cause status
CPT/HCPCS: 36415; 80053; 85025; 85610; 96372; J1885

== ENCOUNTER 2021-10-14 11:02 | Inpatient (IN) | payer MEDICARE, OTHER ==
[~2021-10-14] VITALS: Ht 162.6 cm; Wt 91.5 kg
[2021-10-14 11:40] LABS: Basophils # (auto) 0.1 10 ^3/uL (0-0.2); Eosinophils # (auto) 0.2 10 ^3/uL (0-0.8); Hemoglobin 11.3 g/dL (12.2-16.2); Monocytes % (auto) 12.2 % (0.0-12.0)
[2021-10-14 11:42] LABS: Basophils % (auto) 1.3 % (0.0-2.0); Eosinophils % (auto) 2.3 % (0.0-7.0); Hematocrit 35.5 % (36.0-46.0); Lymphocytes # (auto) 1.7 10 ^3/uL (0.4-5.4); Mean Corpuscular Hemoglobin 26.8 pg (28.0-32.0); Mean Corpuscular Hgb Conc. 31.9 g/dL (32.0-36.0); Mean Corpuscular Volume 84.1 fL (80.0-100.0); Monocytes # (auto) 1.1 10 ^3/uL (0-1.3); Neutrophils # (auto) 5.6 10 ^3/uL (1.6-8.6); Neutrophils % (auto) 64.2 % (37.0-80.0); Red Blood Cells 4.23 10^6/uL (4.0-5.20); Red Cell Distribution Width 15.4 % (11.8-14.3); White Blood Cell 8.7 10^3/uL (4.4-10.8)
[2021-10-14 11:56] LABS: Albumin 3.7 g/dL (3.4-5.0); Calcium 9.4 mg/dL (8.5-10.1); Potassium 3.8 mmol/L (3.5-5.1)
[2021-10-14 11:59] LABS: BUN/Creatinine Ratio 12.6; Bilirubin, Total 0.4 mg/dL (0.2-1.0); Total Protein 7.2 g/dL (6.4-8.2)
[2021-10-14 13:57] LABS: Urine Bacteria MANY /hpf (None Seen); Urine Blood Negative /uL (Negative); Urine Mucus FEW (None Seen); Urine Specific Gravity 1.014 (1.001-1.035); Urine WBC 3 /hpf (0 - 5)
[2021-10-14] MEDS ORDERED: cefTRIAXone 1GM/50ML D5W 50 ML IV ONE (16:30)
[2021-10-14] MEDS ORDERED: ACETAMINOPHEN 325 MG TAB PO PRN (18:30)
[2021-10-14] MEDS ORDERED: ONDANSETRON HCL 4 MG/2 ML VIAL IV PRN (18:30)
[2021-10-14] MEDS ORDERED: DOCUSATE SOD 100 MG CAP PO PRN (18:30)
[2021-10-14] MEDS: SODIUM CHLORIDE 0.9% 1,000 ML IV SCH (20:00)
[2021-10-14] MEDS: HYDROcodone-ACET 5/325MG TAB PO PRN (20:02)
[2021-10-15] MEDS: HYDROcodone-ACET 5/325MG TAB PO PRN ×2 (00:04→06:35)
[2021-10-15 05:00] VITALS: BP 137/72
[2021-10-15 06:10] LABS: Basophils # (auto) 0 10 ^3/uL (0-0.2); Basophils % (auto) 0.9 % (0.0-2.0); Eosinophils # (auto) 0.2 10 ^3/uL (0-0.8); Eosinophils % (auto) 4.5 % (0.0-7.0); Hematocrit 32.5 % (36.0-46.0); Hemoglobin 10.7 g/dL (12.2-16.2); Lymphocytes % (auto) 37.8 % (10.0-50.0); Mean Corpuscular Hemoglobin 27.5 pg (28.0-32.0); Mean Corpuscular Hgb Conc. 33.1 g/dL (32.0-36.0); Mean Corpuscular Volume 83.2 fL (80.0-100.0); Monocytes # (auto) 0.6 10 ^3/uL (0-1.3); Monocytes % (auto) 12.4 % (0.0-12.0); Neutrophils # (auto) 2.3 10 ^3/uL (1.6-8.6); Neutrophils % (auto) 44.4 % (37.0-80.0); Nucleated Red Blood Cells % 0.1 %; Red Cell Distribution Width 15.4 % (11.8-14.3); White Blood Cell 5.2 10^3/uL (4.4-10.8)
[2021-10-15 06:35] LABS: Albumin 3.1 g/dL (3.4-5.0); BUN/Creatinine Ratio 13.2; Bilirubin, Total 0.4 mg/dL (0.2-1.0); Calcium 8.8 mg/dL (8.5-10.1); Total Protein 6.2 g/dL (6.4-8.2)
[2021-10-15 09:00] VITALS: BP 124/52
[2021-10-15] MEDS: cefTRIAXone 1GM/50ML D5W 50 ML IV SCH (09:02)
[2021-10-15] MEDS: MORPHINE SULFATE INJ 2 MG/ml SYRG IV PRN ×3 (09:03→22:30)
[2021-10-15 09:44] LABS: Urine Bacteria FEW /hpf (None Seen); Urine Blood Negative /uL (Negative); Urine Mucus FEW (None Seen); Urine Specific Gravity 1.009 (1.001-1.035); Urine WBC 10 /hpf (0 - 5)
[2021-10-15] MEDS ORDERED: ENOXAPARIN SOD 30 MG/0.3 ML SYRINGE SC SCH (10:00)
[2021-10-15] MEDS ORDERED: NURTEC 75 MG SL PRN (10:00)
[2021-10-15] MEDS ORDERED: LORazepam 2MG/ML-1ML VIAL IV PRN (10:00)
[2021-10-15] MEDS: SODIUM CHLORIDE 0.9% 1,000 ML IV SCH (10:59)
[2021-10-15] MEDS: ASPirin-EC 81 mg tab PO SCH (11:01)
[2021-10-15] MEDS ORDERED: QUET400T PO (11:26)
[2021-10-15 12:54] VITALS: BP 113/52
[2021-10-15 14:06] LABS: Folate (Folic Acid) 9.67 ng/mL (5.38-24)
[2021-10-15 14:43] LABS: Cholesterol 131 mg/dL (< 200)
[2021-10-15 14:46] LABS: HDL Cholesterol 46 mg/dL (40-59); LDL Cholesterol 73 mg/dL (< 100); Triglycerides 188 mg/dL (< 150)
[2021-10-15 15:20] LABS: % Iron Saturation 14.2 % (15-50)
[2021-10-15 17:02] VITALS: BP 128/69
[2021-10-15] MEDS ORDERED: CYANOCOBALAMIN (B-12) 1000 MCG/1 ML VIAL IM ONE (17:15)
[2021-10-15] MEDS ORDERED: SODIUM FERR GLUC 62.5MG/5ML 125 MG in SODIUM CHL 0.9% 100 ML IV ONE (17:15)
[2021-10-15] MEDS: ATORVASTATIN 20 MG TAB PO SCH (21:25)
[2021-10-15 21:58] VITALS: BP 148/90
[2021-10-15] MEDS ORDERED: AMITRIPTYLINE HCL 25 MG TAB PO SCH (22:00)
[2021-10-16] MEDS: MORPHINE SULFATE INJ 2 MG/ml SYRG IV PRN ×4 (03:34→21:36)
[2021-10-16 05:00] VITALS: BP 137/58
[2021-10-16 05:58] LABS: Calcium 8.7 mg/dL (8.5-10.1)
[2021-10-16 06:06] LABS: RPR Non Reactive (Non Reactive)
[2021-10-16] MEDS: cefTRIAXone 1GM/50ML D5W 50 ML IV SCH (08:52)
[2021-10-16] MEDS: ENOXAPARIN SOD 40 MG/0.4 ML SYRINGE SC SCH (08:53)
[2021-10-16] MEDS: ASPirin-EC 81 mg tab PO SCH (08:53)
[2021-10-16] MEDS: CYANOCOBALAMIN (B-12) 1000 MCG/1 ML VIAL IM SCH (08:53)
[2021-10-16 09:00] VITALS: BP 150/72
[2021-10-16] MEDS: SODIUM FERR GLUC 62.5MG/5ML 125 MG in SODIUM CHL 0.9% 100 ML IV SCH (12:07)
[2021-10-16 13:00] VITALS: BP 141/75
[2021-10-16 17:00] VITALS: BP 155/44
[2021-10-16] MEDS: ATORVASTATIN 20 MG TAB PO SCH (21:35)
[2021-10-16 22:00] VITALS: BP 166/72
[2021-10-17 05:00] VITALS: BP 93/60
[2021-10-17] MEDS: ASPirin-EC 81 mg tab PO SCH (08:50)
[2021-10-17] MEDS: cefTRIAXone 1GM/50ML D5W 50 ML IV SCH (08:50)
[2021-10-17] MEDS: CYANOCOBALAMIN (B-12) 1000 MCG/1 ML VIAL IM SCH (08:51)
[2021-10-17] MEDS: ENOXAPARIN SOD 40 MG/0.4 ML SYRINGE SC SCH (08:51)
[2021-10-17 09:00] VITALS: BP 128/59
[2021-10-17] MEDS: MORPHINE SULFATE INJ 2 MG/ml SYRG IV PRN ×2 (12:11→16:37)
[2021-10-17] MEDS: SODIUM FERR GLUC 62.5MG/5ML 125 MG in SODIUM CHL 0.9% 100 ML IV SCH (12:12)
[2021-10-17 13:00] VITALS: BP 134/65
[2021-10-17 15:29] VITALS: BP 134/65
[2021-10-17] MEDS ORDERED: CIPROFLOXACIN 400MG/200ML 200 ML IV ONE (15:30)
[2021-10-17 17:00] VITALS: BP 160/64
[2021-10-17 17:07] VITALS: BP 129/72
[2021-10-17] MEDS ORDERED: CIPROFLOXACIN 400MG/200ML 200 ML IV SCH (22:00)
== END 2021-10-17 19:14 | DRG 74 ==
LOC: ER 11:02 → TELE 18:30 → TELE-WESTW 22:02
PROVIDERS: ADMIT Internal Medicine; ATTEND Internal Medicine
DX: G90.8 Other disorders of autonomic nervous system (principal); I50.32 Chronic diastolic (congestive) heart failure; N30.00 Acute cystitis without hematuria; M48.56XA Collapsed vertebra, not elsewhere classified, lumbar region, initial encounter for fracture; G43.009 Migraine without aura, not intractable, without status migrainosus; G47.10 Hypersomnia, unspecified; I11.9 Hypertensive heart disease without heart failure; E11.9 Type 2 diabetes mellitus without complications; E66.9 Obesity, unspecified; E53.8 Deficiency of other specified B group vitamins; E86.1 Hypovolemia; H57.02 Anisocoria; D50.9 Iron deficiency anemia, unspecified; Z20.822 Contact with and (suspected) exposure to COVID-19; G89.29 Other chronic pain; I45.10 Unspecified right bundle-branch block; R29.6 Repeated falls; Z79.82 Long term (current) use of aspirin; Z79.899 Other long term (current) drug therapy; Z82.49 Family history of ischemic heart disease and other diseases of the circulatory system; Z86.73 Personal history of transient ischemic attack (TIA), and cerebral infarction without residual deficits; Z98.84 Bariatric surgery status; Z90.49 Acquired absence of other specified parts of digestive tract; Z68.34 Body mass index [BMI] 34.0-34.9, adult
CPT/HCPCS: 36415; 71045; 72146; 72148; 80048; 80053; 80061; 81001; 82306; 82607; 82746; 83036; 83540; 83550; 83615; 83735; 83880; 84100; 84443; 84484; 85025; 85045; 85610; 86592; 87081; 87086; 87088; 87186; 93005; 96361; 96365; 96372; 97110; 97116; 97163; 97530; G0378; J0696; J1885

== ENCOUNTER 2022-06-02 12:18 | Inpatient (IN) | payer OTHER ==
[~2022-06-02] VITALS: Ht 165.1 cm; Wt 101.7 kg
[~2022-06-02 12:18] MED LIST changes: +AMIT25TA12 PO; +AML5T PO; +CAR3125T PO; +COEN400C8 OR; +ESCI-34 PO; +HYDR-4902 PO; +HYDR25TA5 GT; +LOSA-69 PO; +METO25TA5 PO; +ONDA-144 PO; +PANT40TA2 PO; +QUET400T PO; +TURM500C3 OR; +[UNRECOGNIZED DRUG - CODE] PO
[2022-06-02] MEDS ORDERED: metroNIDAZOLE 500MG/100ML 100 ML IV ONE (13:45)
[2022-06-02] MEDS ORDERED: cefTRIAXone 1GM/50ML D5W 50 ML IV ONE (13:45)
[2022-06-02] MEDS ORDERED: SODIUM CHLORIDE 0.9% 1,000 ML IV ONE (13:45)
[2022-06-02 13:56] LABS: Basophils # (auto) 0.1 10 ^3/uL (0-0.2); Eosinophils # (auto) 0.6 10 ^3/uL (0-0.8); Lymphocytes # (auto) 1.5 10 ^3/uL (0.4-5.4); Mean Corpuscular Hgb Conc. 32.1 g/dL (32.0-36.0); White Blood Cell 9.4 10^3/uL (4.4-10.8)
[2022-06-02 13:58] LABS: Basophils % (auto) 0.8 % (0.0-2.0); Eosinophils % (auto) 6.5 % (0.0-7.0); Hematocrit 40.4 % (36.0-46.0); Lymphocytes % (auto) 15.7 % (10.0-50.0); Monocytes # (auto) 1.1 10 ^3/uL (0-1.3); Neutrophils # (auto) 6.1 10 ^3/uL (1.6-8.6); Nucleated Red Blood Cells % 0.2 %; Red Blood Cells 4.81 10^6/uL (4.0-5.20); Red Cell Distribution Width 15.2 % (11.8-14.3)
[2022-06-02 14:20] LABS: Albumin 3.6 g/dL (3.4-5.0); Calcium 9.2 mg/dL (8.5-10.1); Potassium 4.5 mmol/L (3.5-5.1)
[2022-06-02 14:24] LABS: BUN/Creatinine Ratio 15.7 (10.0-20.0); Bilirubin, Total 0.6 mg/dL (0.2-1.0); Total Protein 7.6 g/dL (6.4-8.2)
[2022-06-02] MEDS ORDERED: DEXTROSE (50%) 50ML SYRG IV PRN (18:15)
[2022-06-02] MEDS ORDERED: ONDANSETRON HCL 4 MG/2 ML VIAL IV PRN (18:15)
[2022-06-02] MEDS ORDERED: ACETAMINOPHEN 325 MG TAB PO PRN (18:15)
[2022-06-02] MEDS: SODIUM CHLORIDE 0.9% 1,000 ML IV SCH (18:46)
[2022-06-02 18:51] LABS: Cholesterol 139 mg/dL (< 200); HDL Cholesterol 32 mg/dL (40-59); LDL Cholesterol 84 mg/dL (< 100); Triglycerides 243 mg/dL (< 150)
[2022-06-02] MEDS: MORPHINE SULFATE INJ 2 MG/ml SYRG IV PRN (19:01)
[2022-06-02] MEDS: metroNIDAZOLE 500MG/100ML 100 ML IV SCH (22:00)
[2022-06-02 23:36] LABS: Urine Bacteria NONE SEEN /hpf (None Seen); Urine Blood Negative /uL (Negative); Urine Specific Gravity 1.006 (1.001-1.035); Urine WBC 1 /hpf (0 - 5)
[2022-06-02 23:43] VITALS: BP 160/75
[2022-06-02] MEDS: InsuLIN REG 1unit/0.01ml Soln (100units/ml) SC SCH (23:57)
[2022-06-02] MEDS: ACCU-CHEK COMFORT CURVE STRIP VI SCH (23:58)
[2022-06-03] MEDS: SODIUM CHLORIDE 0.9% 1,000 ML IV SCH ×3 (02:15→18:15)
[2022-06-03] MEDS: MORPHINE SULFATE INJ 2 MG/ml SYRG IV PRN ×4 (04:57→20:43)
[2022-06-03 05:00] VITALS: BP 143/74
[2022-06-03] MEDS: ACCU-CHEK COMFORT CURVE STRIP VI SCH ×3 (05:31→18:00)
[2022-06-03] MEDS: metroNIDAZOLE 500MG/100ML 100 ML IV SCH ×3 (05:31→21:36)
[2022-06-03] MEDS: InsuLIN REG 1unit/0.01ml Soln (100units/ml) SC SCH ×3 (05:31→18:00)
[2022-06-03 07:34] LABS: Basophils # (auto) 0.1 10 ^3/uL (0-0.2); Basophils % (auto) 0.9 % (0.0-2.0); Eosinophils # (auto) 0.4 10 ^3/uL (0-0.8); Hemoglobin 11.6 g/dL (12.2-16.2); Neutrophils # (auto) 4.8 10 ^3/uL (1.6-8.6); Nucleated Red Blood Cells % 0.1 %
[2022-06-03 07:37] LABS: Eosinophils % (auto) 5.3 % (0.0-7.0); Hematocrit 35.5 % (36.0-46.0); Lymphocytes # (auto) 1.2 10 ^3/uL (0.4-5.4); Lymphocytes % (auto) 16.2 % (10.0-50.0); Mean Corpuscular Hemoglobin 26.4 pg (28.0-32.0); Mean Corpuscular Hgb Conc. 32.7 g/dL (32.0-36.0); Mean Corpuscular Volume 80.7 fL (80.0-100.0); Monocytes % (auto) 13.8 % (0.0-12.0); Neutrophils % (auto) 63.8 % (37.0-80.0); Red Cell Distribution Width 14.9 % (11.8-14.3); White Blood Cell 7.5 10^3/uL (4.4-10.8)
[2022-06-03 07:59] LABS: Potassium 3.7 mmol/L (3.5-5.1)
[2022-06-03 08:09] LABS: Albumin 3.3 g/dL (3.4-5.0); BUN/Creatinine Ratio 15.5 (10.0-20.0); Bilirubin, Total 0.6 mg/dL (0.2-1.0); Total Protein 7.3 g/dL (6.4-8.2)
[2022-06-03 09:00] VITALS: BP 150/72
[2022-06-03] MEDS: cefTRIAXone 1GM/50ML D5W 50 ML IV SCH (09:58)
[2022-06-03] MEDS: ENOXAPARIN SOD 40 MG/0.4 ML SYRINGE SC SCH (09:58)
[2022-06-03 13:00] VITALS: BP 144/69
[2022-06-03 16:43] VITALS: BP 144/72
[2022-06-03] MEDS: HYDROcodone-ACET 5/325MG TAB PO PRN (22:59)
[2022-06-04] MEDS: ACCU-CHEK COMFORT CURVE STRIP VI SCH ×4 (00:06→17:21)
[2022-06-04] MEDS: SODIUM CHLORIDE 0.9% 1,000 ML IV SCH ×3 (00:07→18:15)
[2022-06-04] MEDS: MORPHINE SULFATE INJ 2 MG/ml SYRG IV PRN ×3 (04:14→21:41)
[2022-06-04 04:30] VITALS: BP 150/69
[2022-06-04] MEDS: metroNIDAZOLE 500MG/100ML 100 ML IV SCH ×3 (05:57→21:41)
[2022-06-04] MEDS: InsuLIN REG 1unit/0.01ml Soln (100units/ml) SC SCH ×4 (06:00→17:22)
[2022-06-04] MEDS: HYDROcodone-ACET 5/325MG TAB PO PRN (06:14)
[2022-06-04 09:00] VITALS: BP 151/76
[2022-06-04] MEDS: ENOXAPARIN SOD 40 MG/0.4 ML SYRINGE SC SCH (10:07)
[2022-06-04] MEDS: cefTRIAXone 1GM/50ML D5W 50 ML IV SCH (11:40)
[2022-06-04 13:00] VITALS: BP 124/54
[2022-06-04 17:00] VITALS: BP 141/68
[2022-06-04 22:00] VITALS: BP 176/71
[2022-06-05] MEDS: ACCU-CHEK COMFORT CURVE STRIP VI SCH ×3 (00:29→11:57)
[2022-06-05] MEDS: SODIUM CHLORIDE 0.9% 1,000 ML IV SCH ×2 (02:15→09:45)
[2022-06-05] MEDS: MORPHINE SULFATE INJ 2 MG/ml SYRG IV PRN (04:04)
[2022-06-05 05:00] VITALS: BP 168/75
[2022-06-05] MEDS: metroNIDAZOLE 500MG/100ML 100 ML IV SCH ×2 (05:23→14:00)
[2022-06-05] MEDS: InsuLIN REG 1unit/0.01ml Soln (100units/ml) SC SCH ×3 (05:23→11:57)
[2022-06-05] MEDS: HYDROcodone-ACET 5/325MG TAB PO PRN (05:54)
[2022-06-05 09:00] VITALS: BP 104/71
[2022-06-05] MEDS: cefTRIAXone 1GM/50ML D5W 50 ML IV SCH (09:44)
[2022-06-05] MEDS: ENOXAPARIN SOD 40 MG/0.4 ML SYRINGE SC SCH (09:45)
[2022-06-05] MEDS ORDERED: METR500T PO (10:07)
[2022-06-05] MEDS ORDERED: LEVO500T31 PO (10:07)
[2022-06-05 13:00] VITALS: BP 149/78
[2022-06-05 13:36] VITALS: BP 104/71
== END 2022-06-05 14:50 | disposition home or self-care (01) | DRG 392 ==
LOC: ER 12:18 → WEST WING 18:15
PROVIDERS: ADMIT Registered Nurse; ATTEND Family Medicine
DX: K52.9 Noninfective gastroenteritis and colitis, unspecified (principal); N17.9 Acute kidney failure, unspecified; I12.9 Hypertensive chronic kidney disease with stage 1 through stage 4 chronic kidney disease, or unspecified chronic kidney disease; Z20.822 Contact with and (suspected) exposure to COVID-19; E11.22 Type 2 diabetes mellitus with diabetic chronic kidney disease; N18.32 Chronic kidney disease, stage 3b; I95.9 Hypotension, unspecified; M25.551 Pain in right hip; Z90.49 Acquired absence of other specified parts of digestive tract; Z86.73 Personal history of transient ischemic attack (TIA), and cerebral infarction without residual deficits; Z98.84 Bariatric surgery status
CPT/HCPCS: 36415; 73501; 74176; 76705; 80053; 80061; 81001; 82270; 82962; 83036; 83605; 83690; 83880; 84443; 85025; 87040; 87045; 87077; 87086; 87186; 87426; 87427; 96365; 96368; G0378; J0696; J3490

== ENCOUNTER 2022-06-12 23:16 | Inpatient (IN) | payer OTHER ==
[~2022-06-12] VITALS: Ht 160 cm; Wt 93.0 kg
[~2022-06-12 23:16] MED LIST changes: -AML5T PO; -AMOX500T86 PO; -ESCI-34 PO; +LEVO500T31 PO; -LOSA-39 PO; -METO25TA36 PO; +METR500T PO
[2022-06-12 23:46] LABS: Basophils # (auto) 0.1 10 ^3/uL (0-0.2); Eosinophils # (auto) 0.1 10 ^3/uL (0-0.8); Eosinophils % (auto) 0.4 % (0.0-7.0); Hemoglobin 15.6 g/dL (12.2-16.2); Lymphocytes # (auto) 2.8 10 ^3/uL (0.4-5.4); Mean Corpuscular Hemoglobin 26.7 pg (28.0-32.0); Neutrophils % (auto) 70.6 % (37.0-80.0); Red Cell Distribution Width 15.5 % (11.8-14.3)
[2022-06-12 23:47] LABS: Basophils % (auto) 0.9 % (0.0-2.0); Hematocrit 47.7 % (36.0-46.0); Lymphocytes % (auto) 16.6 % (10.0-50.0); Mean Corpuscular Hgb Conc. 32.8 g/dL (32.0-36.0); Mean Corpuscular Volume 81.4 fL (80.0-100.0); Monocytes % (auto) 11.5 % (0.0-12.0); Nucleated Red Blood Cells % 0.1 %; Red Blood Cells 5.86 10^6/uL (4.0-5.20); White Blood Cell 16.9 10^3/uL (4.4-10.8)
[2022-06-13 00:14] LABS: Albumin 3.8 g/dL (3.4-5.0); BUN/Creatinine Ratio 22.6 (10.0-20.0)
[2022-06-13 00:17] LABS: Bilirubin, Total 0.6 mg/dL (0.2-1.0); Total Protein 8.2 g/dL (6.4-8.2)
[2022-06-13] MEDS ORDERED: PIPERACILLIN-TAZOB 3.375GM 100 ML IV ONE (01:15)
[2022-06-13 01:28] LABS: INR 1.15 (0.9-1.15)
[2022-06-13 01:40] LABS: Urine Bacteria NONE SEEN /hpf (None Seen); Urine Blood Negative /uL (Negative); Urine Hyaline Cast FEW /lpf (0 - 2); Urine Mucus FEW (None Seen); Urine Specific Gravity 1.022 (1.001-1.035); Urine WBC 1 /hpf (0 - 5)
[2022-06-13] MEDS ORDERED: ONDANSETRON HCL 4 MG/2 ML VIAL IV ONE (02:45)
[2022-06-13] MEDS ORDERED: MORPHINE SULFATE INJ 2 MG/ml SYRG IV ONE (02:45)
[2022-06-13 03:09] LABS: Alcohol, Urine < 3.0 mg/dL (0-10); Amphetamine Screen, Urine NEGATIVE (NEGATIVE); Barbiturate Scree,Urine NEGATIVE (NEGATIVE); Benzodiazephine Screen, Urine NEGATIVE (NEGATIVE); Cannabinoid Screen, Urine NEGATIVE (NEGATIVE)
[2022-06-13 03:21] LABS: Cocaine Screen, Urine NEGATIVE (NEGATIVE); Opiate Scree,Urine NEGATIVE (NEGATIVE); Phencyclidine Screen, Urine NEGATIVE (NEGATIVE)
[2022-06-13] MEDS ORDERED: POTASSIUM CHL 20 Meq TABLET PO ONE (04:00)
[2022-06-13] MEDS ORDERED: DOCUSATE SOD 100 MG CAP PO PRN (04:15)
[2022-06-13] MEDS ORDERED: NITROGLYCERIN 0.4 MG SL TAB SL PRN (04:15)
[2022-06-13] MEDS ORDERED: ONDANSETRON HCL 4 MG/2 ML VIAL IV PRN (04:15)
[2022-06-13] MEDS ORDERED: SODIUM CHLORIDE 0.9% 1,000 ML IV SCH (04:15)
[2022-06-13] MEDS ORDERED: MORPHINE SULFATE INJ 2 MG/ml SYRG IV PRN (04:15)
[2022-06-13] MEDS ORDERED: DEXTROSE (50%) 50ML SYRG IV PRN (04:15)
[2022-06-13] MEDS ORDERED: hydrALAZINE HCL 20 MG/ML VL IV PRN (04:15)
[2022-06-13] MEDS: InsuLIN REG 1unit/0.01ml Soln (100units/ml) SC SCH ×4 (07:20→23:13)
[2022-06-13] MEDS: ACCU-CHEK COMFORT CURVE STRIP VI SCH ×4 (07:22→23:12)
[2022-06-13 07:26] LABS: Basophils # (auto) 0.1 10 ^3/uL (0-0.2); Basophils % (auto) 0.5 % (0.0-2.0); Eosinophils # (auto) 0.2 10 ^3/uL (0-0.8); Eosinophils % (auto) 0.9 % (0.0-7.0); Hematocrit 46.7 % (36.0-46.0); Hemoglobin 15.2 g/dL (12.2-16.2); Lymphocytes # (auto) 2.7 10 ^3/uL (0.4-5.4); Lymphocytes % (auto) 13.2 % (10.0-50.0); Mean Corpuscular Hemoglobin 26.1 pg (28.0-32.0); Mean Corpuscular Hgb Conc. 32.6 g/dL (32.0-36.0); Mean Corpuscular Volume 80.2 fL (80.0-100.0); Monocytes # (auto) 2.1 10 ^3/uL (0-1.3); Monocytes % (auto) 10.2 % (0.0-12.0); Neutrophils # (auto) 15.4 10 ^3/uL (1.6-8.6); Neutrophils % (auto) 75.2 % (37.0-80.0); Nucleated Red Blood Cells % 0.3 %; Red Blood Cells 5.83 10^6/uL (4.0-5.20); Red Cell Distribution Width 15.5 % (11.8-14.3); White Blood Cell 20.6 10^3/uL (4.4-10.8)
[2022-06-13 07:57] LABS: Albumin 3.5 g/dL (3.4-5.0); Calcium 9.9 mg/dL (8.5-10.1); Potassium 4.4 mmol/L (3.5-5.1)
[2022-06-13 08:00] LABS: BUN/Creatinine Ratio 23.4 (10.0-20.0); Bilirubin, Total 0.8 mg/dL (0.2-1.0); Total Protein 7.7 g/dL (6.4-8.2)
[2022-06-13] MEDS: HYDROcodone-ACET 5/325MG TAB PO PRN ×2 (09:33→19:36)
[2022-06-13] MEDS: cefTRIAXone 1GM/50ML D5W 50 ML IV SCH (10:57)
[2022-06-13] MEDS: SODIUM CHLORIDE 0.9% 1,000 ML IV SCH ×3 (10:57→23:43)
[2022-06-13] MEDS: ASPirin 81 mg TAB PO SCH (10:58)
[2022-06-13] MEDS: HEPARIN SODIUM (PORCINE) 5000 UNITS/ML 1ML VIAL SC SCH ×2 (10:58→23:12)
[2022-06-13 11:44] LABS: Protein, Urine 33.8 mg/dL (0.0-11.9)
[2022-06-13 22:38] VITALS: BP 150/77
[2022-06-13] MEDS: ATORVASTATIN 20 MG TAB PO SCH (23:11)
[2022-06-14] VITALS (7 sets, daily range): BP systolic 117–131; BP diastolic 58–78
[2022-06-14] MEDS: ACETAMINOPHEN 325 MG TAB PO PRN ×2 (00:48→16:26)
[2022-06-14 05:55] LABS: Basophils # (auto) 0.1 10 ^3/uL (0-0.2); Basophils % (auto) 0.6 % (0.0-2.0); Eosinophils # (auto) 0 10 ^3/uL (0-0.8); Eosinophils % (auto) 0.3 % (0.0-7.0); Hematocrit 40.4 % (36.0-46.0); Neutrophils # (auto) 9.3 10 ^3/uL (1.6-8.6)
[2022-06-14 05:58] LABS: Hemoglobin 13.2 g/dL (12.2-16.2); Lymphocytes % (auto) 15.4 % (10.0-50.0); Mean Corpuscular Hemoglobin 26.3 pg (28.0-32.0); Mean Corpuscular Hgb Conc. 32.7 g/dL (32.0-36.0); Mean Corpuscular Volume 80.6 fL (80.0-100.0); Monocytes # (auto) 1.6 10 ^3/uL (0-1.3); Monocytes % (auto) 12.5 % (0.0-12.0); Neutrophils % (auto) 71.2 % (37.0-80.0); Nucleated Red Blood Cells % 0.1 %; Red Blood Cells 5.01 10^6/uL (4.0-5.20); Red Cell Distribution Width 15.3 % (11.8-14.3); White Blood Cell 13.1 10^3/uL (4.4-10.8)
[2022-06-14] MEDS: InsuLIN REG 1unit/0.01ml Soln (100units/ml) SC SCH ×4 (06:27→22:00)
[2022-06-14] MEDS: ACCU-CHEK COMFORT CURVE STRIP VI SCH ×4 (06:27→22:11)
[2022-06-14 06:37] LABS: Albumin 3.1 g/dL (3.4-5.0); BUN/Creatinine Ratio 32.7 (10.0-20.0); Bilirubin, Total 0.5 mg/dL (0.2-1.0); Calcium 9.3 mg/dL (8.5-10.1); Phosphorus 2.5 mg/dL (2.5-4.90); Total Protein 6.4 g/dL (6.4-8.2)
[2022-06-14] MEDS: SODIUM CHLORIDE 0.9% 1,000 ML IV SCH ×2 (08:00→16:26)
[2022-06-14] MEDS: cefTRIAXone 1GM/50ML D5W 50 ML IV SCH (09:00)
[2022-06-14] MEDS: ASPirin 81 mg TAB PO SCH (09:09)
[2022-06-14] MEDS: HEPARIN SODIUM (PORCINE) 5000 UNITS/ML 1ML VIAL SC SCH ×2 (09:11→22:16)
[2022-06-14] MEDS ORDERED: POTASSIUM CHL 20 Meq TABLET PO ONE (16:00)
[2022-06-14] MEDS: ATORVASTATIN 20 MG TAB PO SCH (22:11)
[2022-06-15] VITALS (7 sets, daily range): BP systolic 117–144; BP diastolic 52–76
[2022-06-15] MEDS: HYDROcodone-ACET 5/325MG TAB PO PRN (00:51)
[2022-06-15] MEDS: SODIUM CHLORIDE 0.9% 1,000 ML IV SCH ×3 (04:27→22:10)
[2022-06-15] MEDS: InsuLIN REG 1unit/0.01ml Soln (100units/ml) SC SCH ×4 (06:30→21:21)
[2022-06-15] MEDS: ACCU-CHEK COMFORT CURVE STRIP VI SCH ×4 (06:30→21:21)
[2022-06-15 08:12] LABS: Basophils # (auto) 0.1 10 ^3/uL (0-0.2); Hemoglobin 12.1 g/dL (12.2-16.2); Mean Corpuscular Volume 81.2 fL (80.0-100.0); White Blood Cell 7.5 10^3/uL (4.4-10.8)
[2022-06-15 08:14] LABS: Basophils % (auto) 1.3 % (0.0-2.0); Eosinophils # (auto) 0.2 10 ^3/uL (0-0.8); Eosinophils % (auto) 2.4 % (0.0-7.0); Hematocrit 36.9 % (36.0-46.0); Lymphocytes # (auto) 2.1 10 ^3/uL (0.4-5.4); Lymphocytes % (auto) 28.1 % (10.0-50.0); Mean Corpuscular Hemoglobin 26.7 pg (28.0-32.0); Mean Corpuscular Hgb Conc. 32.8 g/dL (32.0-36.0); Monocytes # (auto) 1.1 10 ^3/uL (0-1.3); Monocytes % (auto) 14.4 % (0.0-12.0); Neutrophils % (auto) 53.8 % (37.0-80.0); Nucleated Red Blood Cells % 0.2 %; Red Blood Cells 4.54 10^6/uL (4.0-5.20); Red Cell Distribution Width 15.5 % (11.8-14.3)
[2022-06-15 08:29] LABS: BUN/Creatinine Ratio 21.4 (10.0-20.0); Calcium 9.4 mg/dL (8.5-10.1); Potassium 3.5 mmol/L (3.5-5.1)
[2022-06-15] MEDS: cefTRIAXone 1GM/50ML D5W 50 ML IV SCH (10:12)
[2022-06-15] MEDS: HEPARIN SODIUM (PORCINE) 5000 UNITS/ML 1ML VIAL SC SCH ×2 (10:12→21:58)
[2022-06-15] MEDS: ASPirin 81 mg TAB PO SCH (10:12)
[2022-06-15] MEDS ORDERED: ALPRAZolam 0.5 MG TAB PO PRN (12:15)
[2022-06-15 13:10] LABS: Hepatitis B Core IgM Negative
[2022-06-15] MEDS: ACETAMINOPHEN 325 MG TAB PO PRN (16:26)
[2022-06-15] MEDS: ATORVASTATIN 20 MG TAB PO SCH (21:57)
[2022-06-16] VITALS (7 sets, daily range): BP systolic 115–166; BP diastolic 62–89
[2022-06-16] MEDS: ACETAMINOPHEN 325 MG TAB PO PRN (01:43)
[2022-06-16] MEDS: ACCU-CHEK COMFORT CURVE STRIP VI SCH ×3 (06:24→17:00)
[2022-06-16] MEDS: InsuLIN REG 1unit/0.01ml Soln (100units/ml) SC SCH ×4 (06:24→22:00)
[2022-06-16] MEDS: HYDROcodone-ACET 5/325MG TAB PO PRN ×3 (06:45→21:51)
[2022-06-16] MEDS: cefTRIAXone 1GM/50ML D5W 50 ML IV SCH (09:10)
[2022-06-16] MEDS: ASPirin 81 mg TAB PO SCH (09:10)
[2022-06-16] MEDS: HEPARIN SODIUM (PORCINE) 5000 UNITS/ML 1ML VIAL SC SCH ×2 (09:17→22:30)
[2022-06-16] MEDS ORDERED: LOSARTAN POTASSIUM 50 MG TAB PO ONE (12:00)
[2022-06-16] MEDS: GABAPENTIN 300 MG CAP PO SCH ×2 (14:54→23:25)
[2022-06-16] MEDS ORDERED: AMITRIPTYLINE HCL 25 MG TAB PO SCH (18:00)
[2022-06-16] MEDS ORDERED: traZODone HCL 50 MG TAB PO SCH (22:00)
[2022-06-16] MEDS ORDERED: ATORVASTATIN 20 MG TAB PO SCH (22:00)
[2022-06-17] MEDS: ACCU-CHEK COMFORT CURVE STRIP VI SCH ×3 (00:03→12:13)
[2022-06-17 05:01] VITALS: BP 147/69
[2022-06-17] MEDS: InsuLIN REG 1unit/0.01ml Soln (100units/ml) SC SCH ×2 (06:15→12:13)
[2022-06-17] MEDS: GABAPENTIN 300 MG CAP PO SCH ×2 (06:21→14:02)
[2022-06-17 08:30] VITALS: BP 136/79
[2022-06-17] MEDS: ASPirin 81 mg TAB PO SCH (09:34)
[2022-06-17] MEDS: cefTRIAXone 1GM/50ML D5W 50 ML IV SCH (09:34)
[2022-06-17] MEDS: HEPARIN SODIUM (PORCINE) 5000 UNITS/ML 1ML VIAL SC SCH (09:37)
[2022-06-17] MEDS ORDERED: METOPROLOL TARTRATE 25 MG TAB PO SCH (10:00)
[2022-06-17] MEDS ORDERED: LOSARTAN POTASSIUM 50 MG TAB PO SCH (10:00)
[2022-06-17 13:07] VITALS: BP 148/70
[2022-06-17 15:12] VITALS: BP 136/72
== END 2022-06-17 17:00 | disposition home or self-care (01) | DRG 683 ==
LOC: EDBD 23:16 → ER 23:16 → TELE 06-13 04:37 → TELE-CENTR 06-13 22:15
PROVIDERS: ADMIT Nurse Practitioner Family; ATTEND Internal Medicine
DX: N17.0 Acute kidney failure with tubular necrosis (principal); E87.1 Hypo-osmolality and hyponatremia; E11.65 Type 2 diabetes mellitus with hyperglycemia; R53.1 Weakness; I12.9 Hypertensive chronic kidney disease with stage 1 through stage 4 chronic kidney disease, or unspecified chronic kidney disease; E87.6 Hypokalemia; E11.22 Type 2 diabetes mellitus with diabetic chronic kidney disease; E86.9 Volume depletion, unspecified; D63.1 Anemia in chronic kidney disease; N18.31 Chronic kidney disease, stage 3a; Z86.73 Personal history of transient ischemic attack (TIA), and cerebral infarction without residual deficits; Z90.49 Acquired absence of other specified parts of digestive tract; Z82.49 Family history of ischemic heart disease and other diseases of the circulatory system
CPT/HCPCS: 36415; 78582; 80048; 80053; 80307; 81001; 82570; 82962; 83605; 83690; 83735; 83880; 84100; 84156; 84300; 84484; 84550; 85025; 85379; 85610; 85730; 86705; 87081; 87340; 93005; 96365; 97110; 97116; 97163; 97530; G0378; J0696; J1815; J2405; J2543

== ENCOUNTER 2022-06-21 22:22 | Inpatient (IN) | payer OTHER ==
[~2022-06-21] VITALS: Ht 162.6 cm; Wt 92.3 kg
[2022-06-21 23:10] LABS: Basophils # (auto) 0.1 10 ^3/uL (0-0.2); Eosinophils # (auto) 0.2 10 ^3/uL (0-0.8); Eosinophils % (auto) 1.7 % (0.0-7.0); Hematocrit 41.8 % (36.0-46.0); Lymphocytes # (auto) 3.1 10 ^3/uL (0.4-5.4); Mean Corpuscular Volume 81.1 fL (80.0-100.0); Monocytes # (auto) 1.2 10 ^3/uL (0-1.3); Neutrophils # (auto) 7.7 10 ^3/uL (1.6-8.6); Nucleated Red Blood Cells % 0.1 %
[2022-06-21 23:12] LABS: Basophils % (auto) 0.9 % (0.0-2.0); Hemoglobin 13.6 g/dL (12.2-16.2); Lymphocytes % (auto) 25.3 % (10.0-50.0); Mean Corpuscular Hemoglobin 26.4 pg (28.0-32.0); Mean Corpuscular Hgb Conc. 32.5 g/dL (32.0-36.0); Monocytes % (auto) 9.5 % (0.0-12.0); Neutrophils % (auto) 62.6 % (37.0-80.0); Red Blood Cells 5.15 10^6/uL (4.0-5.20); Red Cell Distribution Width 16.2 % (11.8-14.3); White Blood Cell 12.3 10^3/uL (4.4-10.8)
[2022-06-21 23:29] LABS: INR 1.01 (0.9-1.15); Partial Thromboplastin Time 26.1 sec (24.6-33.4)
[2022-06-21 23:34] LABS: Albumin 3.7 g/dL (3.4-5.0); BUN/Creatinine Ratio 12.3 (10.0-20.0); Calcium 9.9 mg/dL (8.5-10.1); Magnesium 1.9 mg/dL (1.6-2.6); Potassium 3.7 mmol/L (3.5-5.1)
[2022-06-21 23:38] LABS: Bilirubin, Total 0.3 mg/dL (0.2-1.0); Total Protein 7.3 g/dL (6.4-8.2)
[2022-06-22] MEDS ORDERED: LABETALOL HCL 5 MG/ML 4ML SYRINGE IV ONE (00:15)
[2022-06-22] MEDS ORDERED: IOHEXOL 350 MG/ML 100ML IJ ONE (00:41)
[2022-06-22 01:28] LABS: Urine Bacteria NONE SEEN /hpf (None Seen); Urine Blood Negative /uL (Negative); Urine Specific Gravity 1.011 (1.001-1.035); Urine WBC 3 /hpf (0 - 5)
[2022-06-22] MEDS ORDERED: cloNIDine HCL 0.1 MG TAB PO PRN (02:45)
[2022-06-22] MEDS ORDERED: LABETALOL HCL 200 MG TAB PO ONE (02:45)
[2022-06-22] MEDS ORDERED: NITROGLYCERIN 0.4 MG SL TAB SL PRN (03:00)
[2022-06-22] MEDS ORDERED: DOCUSATE SOD 100 MG CAP PO PRN (03:00)
[2022-06-22] MEDS ORDERED: cefTRIAXone 1GM/50ML D5W 50 ML IV ONE (03:00)
[2022-06-22] MEDS ORDERED: ACETAMINOPHEN 325 MG TAB PO PRN (03:00)
[2022-06-22] MEDS ORDERED: MORPHINE SULFATE INJ 2 MG/ml SYRG IV PRN (03:00)
[2022-06-22] MEDS ORDERED: metroNIDAZOLE 500MG/100ML 100 ML IV ONE (03:00)
[2022-06-22] MEDS ORDERED: ONDANSETRON HCL 4 MG/2 ML VIAL IV PRN (03:00)
[2022-06-22 04:58] LABS: Urine Bacteria NONE SEEN /hpf (None Seen); Urine Blood Negative /uL (Negative); Urine Specific Gravity 1.042 (1.001-1.035); Urine WBC 2 /hpf (0 - 5)
[2022-06-22] MEDS: SODIUM CHLOR 0.9% PF (SALINE LOCK) 10ML VIAL/SYR IV SCH ×3 (06:00→21:29)
[2022-06-22] MEDS: HYDROcodone-ACET 5/325MG TAB PO PRN ×2 (08:22→21:26)
[2022-06-22] MEDS: metroNIDAZOLE 500MG/100ML 100 ML IV SCH ×2 (09:38→17:11)
[2022-06-22] MEDS: LABETALOL HCL 200 MG TAB PO SCH ×2 (10:08→21:25)
[2022-06-22] MEDS: LORazepam 0.5 MG TAB PO PRN (11:07)
[2022-06-22] MEDS ORDERED: UBRELVY 100 MG PO PRN (12:15)
[2022-06-22] MEDS ORDERED: LORazepam 2MG/ML-1ML VIAL IV PRN (12:15)
[2022-06-22] MEDS: MORPHINE SULFATE INJ 2 MG/ml SYRG IV PRN ×2 (13:42→20:33)
[2022-06-22 17:52] VITALS: BP 150/61
[2022-06-22] MEDS: cefTRIAXone 1GM/50ML D5W 50 ML IV SCH (20:40)
[2022-06-22 22:00] VITALS: BP 109/67
[2022-06-23] MEDS: HYDROcodone-ACET 5/325MG TAB PO PRN ×4 (01:07→21:09)
[2022-06-23] MEDS: metroNIDAZOLE 500MG/100ML 100 ML IV SCH ×3 (01:15→17:09)
[2022-06-23 05:00] VITALS: BP 118/89
[2022-06-23] MEDS: SODIUM CHLOR 0.9% PF (SALINE LOCK) 10ML VIAL/SYR IV SCH ×3 (05:29→21:10)
[2022-06-23] MEDS: LABETALOL HCL 200 MG TAB PO SCH ×2 (08:51→21:10)
[2022-06-23] MEDS: VENLAFAXINE HCL 37.5mg XR cap PO SCH (08:52)
[2022-06-23 09:00] VITALS: BP 142/63
[2022-06-23] MEDS ORDERED: CYANOCOBALAMIN 500 MCG TAB PO SCH (10:00)
[2022-06-23] MEDS: LORazepam 0.5 MG TAB PO PRN ×2 (10:08→16:36)
[2022-06-23 13:00] VITALS: BP 130/54
[2022-06-23] MEDS ORDERED: TEMAZEPAM 15 MG CAP PO PRN (15:15)
[2022-06-23 17:17] VITALS: BP 130/61
[2022-06-23] MEDS: cefTRIAXone 1GM/50ML D5W 50 ML IV SCH (21:06)
[2022-06-23 21:35] VITALS: BP 154/45
[2022-06-24] MEDS: MORPHINE SULFATE INJ 2 MG/ml SYRG IV PRN ×2 (00:25→05:26)
[2022-06-24] MEDS: metroNIDAZOLE 500MG/100ML 100 ML IV SCH ×2 (00:25→09:00)
[2022-06-24 04:38] VITALS: BP 109/64
[2022-06-24] MEDS: SODIUM CHLOR 0.9% PF (SALINE LOCK) 10ML VIAL/SYR IV SCH ×2 (06:06→14:12)
[2022-06-24 09:00] VITALS: BP 127/55
[2022-06-24] MEDS: LABETALOL HCL 200 MG TAB PO SCH (09:10)
[2022-06-24] MEDS: VENLAFAXINE HCL 37.5mg XR cap PO SCH (10:00)
[2022-06-24 12:39] VITALS: BP 122/51
[2022-06-24 13:20] VITALS: BP 127/55
== END 2022-06-24 15:19 | disposition home health service (06) | DRG 871 ==
LOC: ER 22:22 → TELE 06-22 02:50 → TELE-WESTW 06-22 17:32 → WEST WING 06-23 18:52
PROVIDERS: ADMIT Internal Medicine; ATTEND Internal Medicine
DX: A41.9 Sepsis, unspecified organism (principal); G93.41 Metabolic encephalopathy; F05 Delirium due to known physiological condition; N30.00 Acute cystitis without hematuria; I16.0 Hypertensive urgency; F01.50 Vascular dementia, unspecified severity, without behavioral disturbance, psychotic disturbance, mood disturbance, and anxiety; E11.42 Type 2 diabetes mellitus with diabetic polyneuropathy; I10 Essential (primary) hypertension; Z20.822 Contact with and (suspected) exposure to COVID-19; F41.9 Anxiety disorder, unspecified; E66.9 Obesity, unspecified; K52.9 Noninfective gastroenteritis and colitis, unspecified; G43.909 Migraine, unspecified, not intractable, without status migrainosus; Z86.73 Personal history of transient ischemic attack (TIA), and cerebral infarction without residual deficits; Z90.49 Acquired absence of other specified parts of digestive tract; Z68.34 Body mass index [BMI] 34.0-34.9, adult; Z79.899 Other long term (current) drug therapy; Z79.82 Long term (current) use of aspirin; Z81.8 Family history of other mental and behavioral disorders; Z82.0 Family history of epilepsy and other diseases of the nervous system; Z82.49 Family history of ischemic heart disease and other diseases of the circulatory system
CPT/HCPCS: 36415; 70551; 71045; 71275; 80053; 81001; 82607; 83735; 83880; 84484; 85025; 85379; 85610; 85730; 87081; 87086; 87426; 93005; 93970; 95819; 96365; 96368; 96375; 97163; 99291; G0378; J0696; J2405; J3490

== ENCOUNTER 2022-06-27 13:29 | Emergency (ER) | payer OTHER ==
[~2022-06-27] VITALS: Ht 165.1 cm; Wt 90.0 kg
[2022-06-27] MEDS ORDERED: LORazepam 2MG/ML-1ML VIAL IM ONE (13:45)
[2022-06-27 14:51] LABS: Basophils # (auto) 0.1 10 ^3/uL (0-0.2); Eosinophils # (auto) 0.3 10 ^3/uL (0-0.8); Hemoglobin 14.4 g/dL (12.2-16.2); Mean Corpuscular Hemoglobin 26.2 pg (28.0-32.0)
[2022-06-27 14:53] LABS: Basophils % (auto) 1.1 % (0.0-2.0); Eosinophils % (auto) 3.4 % (0.0-7.0); Hematocrit 44.3 % (36.0-46.0); Mean Corpuscular Hgb Conc. 32.4 g/dL (32.0-36.0); Mean Corpuscular Volume 80.8 fL (80.0-100.0); Monocytes # (auto) 0.6 10 ^3/uL (0-1.3); Monocytes % (auto) 7.7 % (0.0-12.0); Neutrophils # (auto) 5.3 10 ^3/uL (1.6-8.6); Neutrophils % (auto) 63.8 % (37.0-80.0); Nucleated Red Blood Cells % 0.2 %; Red Blood Cells 5.48 10^6/uL (4.0-5.20); Red Cell Distribution Width 16.6 % (11.8-14.3); White Blood Cell 8.3 10^3/uL (4.4-10.8)
[2022-06-27 15:06] LABS: Albumin 3.9 g/dL (3.4-5.0); Potassium 3.8 mmol/L (3.5-5.1)
[2022-06-27 15:09] LABS: BUN/Creatinine Ratio 8.5 (10.0-20.0); Bilirubin, Total 0.4 mg/dL (0.2-1.0); Total Protein 7.1 g/dL (6.4-8.2)
[2022-06-27] MEDS ORDERED: HYDR-3682 PO (15:30)
[2022-06-27 15:39] VITALS: BP 125/77
== END 2022-06-27 15:45 | disposition home or self-care (01) ==
LOC: ER 13:29
DX: F41.9 Anxiety disorder, unspecified (principal); R07.89 Other chest pain; R06.00 Dyspnea, unspecified; E11.9 Type 2 diabetes mellitus without complications; I10 Essential (primary) hypertension; Z86.73 Personal history of transient ischemic attack (TIA), and cerebral infarction without residual deficits; Z90.49 Acquired absence of other specified parts of digestive tract
CPT/HCPCS: 36415; 71045; 80053; 84484; 85025; 96372; 99284; J2060

== ENCOUNTER 2022-07-20 03:17 | Inpatient (IN) | payer OTHER ==
[~2022-07-20] VITALS: Ht 162.6 cm; Wt 88.6 kg
[~2022-07-20 03:17] MED LIST changes: -ACET-1156 PO; +ACET-1881 PO; -AMIT25TA12 PO; +AMIT25TA20 PO; -AMLO-496 PO; +AMLO1TAB23 PO; -DULO60CA PO; +DULO60CA41 PO; +GABA-1250 PO; -GABA300C10 PO; +HYDR-3682 PO; -LOSA-69 PO; +LOSA50TA46 PO
[2022-07-20 04:10] LABS: Basophils # (auto) 0.1 10 ^3/uL (0-0.2); Basophils % (auto) 1.3 % (0.0-2.0); Eosinophils # (auto) 0.3 10 ^3/uL (0-0.8); Eosinophils % (auto) 3.5 % (0.0-7.0); Hematocrit 40.8 % (36.0-46.0); Hemoglobin 13.6 g/dL (12.2-16.2); Lymphocytes # (auto) 2.9 10 ^3/uL (0.4-5.4); Lymphocytes % (auto) 33.4 % (10.0-50.0); Mean Corpuscular Hemoglobin 27.3 pg (28.0-32.0); Mean Corpuscular Hgb Conc. 33.4 g/dL (32.0-36.0); Mean Corpuscular Volume 81.8 fL (80.0-100.0); Monocytes # (auto) 0.8 10 ^3/uL (0-1.3); Monocytes % (auto) 9.6 % (0.0-12.0); Neutrophils # (auto) 4.5 10 ^3/uL (1.6-8.6); Neutrophils % (auto) 52.2 % (37.0-80.0); Nucleated Red Blood Cells % 0.1 %; Red Blood Cells 4.99 10^6/uL (4.0-5.20); Red Cell Distribution Width 16.4 % (11.8-14.3); White Blood Cell 8.6 10^3/uL (4.4-10.8)
[2022-07-20 04:23] LABS: Albumin 3.5 g/dL (3.4-5.0); BUN/Creatinine Ratio 16.9 (10.0-20.0); Calcium 8.9 mg/dL (8.5-10.1); Potassium 3.7 mmol/L (3.5-5.1)
[2022-07-20 04:26] LABS: Bilirubin, Total 0.3 mg/dL (0.2-1.0); Total Protein 6.9 g/dL (6.4-8.2)
[2022-07-20] MEDS ORDERED: HYDROcodone-ACET 10/325MG TAB PO ONE (08:45)
[2022-07-20] MEDS ORDERED: SODIUM CHLORIDE 0.9% 1,000 ML IV ONE (09:00)
[2022-07-20 10:59] LABS: Urine Bacteria FEW /hpf (None Seen); Urine Blood Negative /uL (Negative); Urine Hyaline Cast FEW /lpf (0 - 2); Urine Mucus FEW (None Seen); Urine Specific Gravity 1.017 (1.001-1.035); Urine WBC 6 /hpf (0 - 5)
[2022-07-20] MEDS ORDERED: NITROGLYCERIN 0.4 MG SL TAB SL PRN (11:30)
[2022-07-20] MEDS ORDERED: MORPHINE SULFATE INJ 2 MG/ml SYRG IV PRN (11:30)
[2022-07-20] MEDS: cefTRIAXone 1GM/50ML D5W 50 ML IV SCH (12:05)
[2022-07-20] MEDS ORDERED: DEXTROSE (50%) 50ML SYRG IV PRN (12:15)
[2022-07-20] MEDS: GABAPENTIN 300 MG CAP PO SCH ×2 (14:08→20:59)
[2022-07-20 15:00] VITALS: BP 120/53
[2022-07-20] MEDS: HYDROcodone-ACET 5/325MG TAB PO PRN ×2 (15:26→20:21)
[2022-07-20] MEDS: SODIUM CHLORIDE 0.9% 1,000 ML IV SCH ×2 (15:39→16:39)
[2022-07-20 15:47] VITALS: BP 120/53
[2022-07-20 16:47] VITALS: BP 120/53
[2022-07-20] MEDS ORDERED: ACCU-CHEK COMFORT CURVE STRIP VI SCH (17:00)
[2022-07-20] MEDS ORDERED: InsuLIN REG 1unit/0.01ml Soln (100units/ml) SC SCH (17:00)
[2022-07-20 22:00] VITALS: BP 127/53
[2022-07-21] MEDS: HYDROcodone-ACET 5/325MG TAB PO PRN ×4 (01:25→20:14)
[2022-07-21] MEDS: SODIUM CHLORIDE 0.9% 1,000 ML IV SCH ×3 (01:28→23:12)
[2022-07-21 05:00] VITALS: BP_SYST 137; BP_SYST 156; BP_SYST 166; BP_DIAS 74; BP_DIAS 75; BP_DIAS 83
[2022-07-21] MEDS: GABAPENTIN 300 MG CAP PO SCH ×3 (05:25→21:34)
[2022-07-21 06:06] LABS: Basophils # (auto) 0.1 10 ^3/uL (0-0.2); Basophils % (auto) 1.2 % (0.0-2.0); Eosinophils # (auto) 0.3 10 ^3/uL (0-0.8); Hematocrit 37.5 % (36.0-46.0); Hemoglobin 12.5 g/dL (12.2-16.2); Lymphocytes % (auto) 33.3 % (10.0-50.0); Mean Corpuscular Hemoglobin 27.4 pg (28.0-32.0); Mean Corpuscular Hgb Conc. 33.4 g/dL (32.0-36.0); Monocytes # (auto) 0.6 10 ^3/uL (0-1.3); Monocytes % (auto) 10.2 % (0.0-12.0); Neutrophils % (auto) 50.3 % (37.0-80.0); Nucleated Red Blood Cells % 0.1 %; Red Blood Cells 4.58 10^6/uL (4.0-5.20); Red Cell Distribution Width 16.5 % (11.8-14.3)
[2022-07-21 06:27] LABS: Potassium 4.3 mmol/L (3.5-5.1)
[2022-07-21 06:40] LABS: Albumin 3.2 g/dL (3.4-5.0); BUN/Creatinine Ratio 12.9 (10.0-20.0); Bilirubin, Total 0.3 mg/dL (0.2-1.0); Calcium 8.7 mg/dL (8.5-10.1); Total Protein 6.4 g/dL (6.4-8.2)
[2022-07-21] MEDS: cefTRIAXone 1GM/50ML D5W 50 ML IV SCH (08:07)
[2022-07-21 09:00] VITALS: BP 135/61
[2022-07-21] MEDS: PANTOPRAZOLE 40 MG/10 ML VIAL INJ IV SCH (09:04)
[2022-07-21] MEDS: ASPirin 81 mg TAB PO SCH (09:04)
[2022-07-21] MEDS: ATORVASTATIN 20 MG TAB PO SCH (09:04)
[2022-07-21] MEDS: DULoxetine HCL 30 MG CAP PO SCH (09:05)
[2022-07-21] MEDS ORDERED: CITALOPRAM HYDROBR 20 MG TAB PO SCH (10:00)
[2022-07-21 13:00] VITALS: BP 140/54
[2022-07-21 17:00] VITALS: BP 132/63
[2022-07-21] MEDS ORDERED: LORazepam 0.5 MG TAB PO PRN (21:45)
[2022-07-21] MEDS ORDERED: LORazepam 2MG/ML-1ML VIAL IV PRN (21:45)
[2022-07-21] MEDS ORDERED: UBRELVY 100 MG PO PRN (21:45)
[2022-07-21 22:00] VITALS: BP 127/63
[2022-07-21] MEDS: TEMAZEPAM 15 MG CAP PO PRN (23:08)
[2022-07-22] MEDS: HYDROcodone-ACET 5/325MG TAB PO PRN ×5 (02:59→20:55)
[2022-07-22 04:47] VITALS: BP 126/65
[2022-07-22] MEDS: GABAPENTIN 300 MG CAP PO SCH ×3 (06:17→20:54)
[2022-07-22 08:45] VITALS: BP 137/65
[2022-07-22] MEDS: cefTRIAXone 1GM/50ML D5W 50 ML IV SCH (08:50)
[2022-07-22] MEDS: PANTOPRAZOLE 40 MG/10 ML VIAL INJ IV SCH (08:50)
[2022-07-22] MEDS: ASPirin 81 mg TAB PO SCH (08:53)
[2022-07-22] MEDS: DULoxetine HCL 30 MG CAP PO SCH (08:53)
[2022-07-22] MEDS: ATORVASTATIN 20 MG TAB PO SCH (08:53)
[2022-07-22] MEDS: VENLAFAXINE HCL 37.5mg XR cap PO SCH (08:54)
[2022-07-22] MEDS: SODIUM CHLORIDE 0.9% 1,000 ML IV SCH ×2 (08:54→23:45)
[2022-07-22 12:45] VITALS: BP 141/60
[2022-07-22] MEDS ORDERED: MAALOX PLUS or MAALOX 30 ML PO ONE (14:45)
[2022-07-22 17:00] VITALS: BP 138/73
[2022-07-22 20:00] VITALS: BP 148/60
[2022-07-22 22:00] VITALS: BP 148/60
[2022-07-22] MEDS: TEMAZEPAM 15 MG CAP PO PRN (22:26)
[2022-07-23] VITALS (7 sets, daily range): BP systolic 126–143; BP diastolic 62–76
[2022-07-23] MEDS: GABAPENTIN 300 MG CAP PO SCH ×3 (05:10→22:04)
[2022-07-23] MEDS: HYDROcodone-ACET 5/325MG TAB PO PRN ×4 (05:10→19:51)
[2022-07-23] MEDS: cefTRIAXone 1GM/50ML D5W 50 ML IV SCH (09:08)
[2022-07-23] MEDS: MAALOX PLUS or MAALOX 30 ML PO SCH (09:08)
[2022-07-23] MEDS: ASPirin 81 mg TAB PO SCH (09:08)
[2022-07-23] MEDS: DULoxetine HCL 30 MG CAP PO SCH (09:08)
[2022-07-23] MEDS: VENLAFAXINE HCL 37.5mg XR cap PO SCH (09:10)
[2022-07-23] MEDS: SODIUM CHLORIDE 0.9% 1,000 ML IV SCH ×2 (11:24→19:45)
[2022-07-23] MEDS: ATORVASTATIN 20 MG TAB PO SCH (14:10)
[2022-07-23] MEDS: TEMAZEPAM 15 MG CAP PO PRN (22:05)
[2022-07-24] MEDS: SODIUM CHLORIDE 0.9% 1,000 ML IV SCH ×2 (04:32→16:20)
[2022-07-24] MEDS: HYDROcodone-ACET 5/325MG TAB PO PRN ×4 (04:38→20:22)
[2022-07-24 05:00] VITALS: BP 147/71
[2022-07-24] MEDS: GABAPENTIN 300 MG CAP PO SCH ×3 (05:08→20:23)
[2022-07-24 08:00] VITALS: BP 144/80
[2022-07-24] MEDS: cefTRIAXone 1GM/50ML D5W 50 ML IV SCH (09:21)
[2022-07-24] MEDS: ATORVASTATIN 20 MG TAB PO SCH (09:21)
[2022-07-24] MEDS: MAALOX PLUS or MAALOX 30 ML PO SCH (09:21)
[2022-07-24] MEDS: ASPirin 81 mg TAB PO SCH (09:21)
[2022-07-24] MEDS: DULoxetine HCL 30 MG CAP PO SCH (09:22)
[2022-07-24] MEDS: VENLAFAXINE HCL 37.5mg XR cap PO SCH (09:22)
[2022-07-24 12:00] VITALS: BP 131/71
[2022-07-24 16:00] VITALS: BP 160/79
[2022-07-24 22:00] VITALS: BP 150/61
[2022-07-24] MEDS: TEMAZEPAM 15 MG CAP PO PRN (23:06)
[2022-07-25] MEDS: SODIUM CHLORIDE 0.9% 1,000 ML IV SCH (03:40)
[2022-07-25] MEDS: HYDROcodone-ACET 5/325MG TAB PO PRN ×4 (03:52→20:11)
[2022-07-25 05:00] VITALS: BP 152/71
[2022-07-25] MEDS: GABAPENTIN 300 MG CAP PO SCH ×3 (06:13→20:10)
[2022-07-25 08:00] VITALS: BP 153/75
[2022-07-25] MEDS: VENLAFAXINE HCL 37.5mg XR cap PO SCH (09:32)
[2022-07-25] MEDS: ATORVASTATIN 20 MG TAB PO SCH (09:32)
[2022-07-25] MEDS: DULoxetine HCL 30 MG CAP PO SCH (09:32)
[2022-07-25] MEDS: cefTRIAXone 1GM/50ML D5W 50 ML IV SCH (09:32)
[2022-07-25] MEDS: MAALOX PLUS or MAALOX 30 ML PO SCH (09:32)
[2022-07-25] MEDS: ASPirin 81 mg TAB PO SCH (09:32)
[2022-07-25 12:00] VITALS: BP 153/78
[2022-07-25 16:00] VITALS: BP 132/75
[2022-07-25 22:00] VITALS: BP 114/69
[2022-07-25] MEDS: TEMAZEPAM 15 MG CAP PO PRN (23:46)
[2022-07-26] MEDS: HYDROcodone-ACET 5/325MG TAB PO PRN ×3 (04:15→19:19)
[2022-07-26 05:00] VITALS: BP 154/68
[2022-07-26] MEDS: GABAPENTIN 300 MG CAP PO SCH ×3 (05:27→21:23)
[2022-07-26 08:00] VITALS: BP 115/56
[2022-07-26 09:30] VITALS: BP 115/56
[2022-07-26] MEDS: DULoxetine HCL 30 MG CAP PO SCH (09:31)
[2022-07-26] MEDS: ASPirin 81 mg TAB PO SCH (09:31)
[2022-07-26] MEDS: cefTRIAXone 1GM/50ML D5W 50 ML IV SCH (09:31)
[2022-07-26] MEDS: MAALOX PLUS or MAALOX 30 ML PO SCH (09:32)
[2022-07-26] MEDS: VENLAFAXINE HCL 37.5mg XR cap PO SCH (09:32)
[2022-07-26] MEDS: ATORVASTATIN 20 MG TAB PO SCH (09:32)
[2022-07-26 12:51] VITALS: BP 132/71
[2022-07-26 16:51] VITALS: BP 123/89
[2022-07-26 22:00] VITALS: BP 144/65
[2022-07-26] MEDS: TEMAZEPAM 15 MG CAP PO PRN (23:12)
[2022-07-27] VITALS (7 sets, daily range): BP systolic 128–150; BP diastolic 63–111
[2022-07-27] MEDS: HYDROcodone-ACET 5/325MG TAB PO PRN ×4 (04:05→23:12)
[2022-07-27] MEDS: GABAPENTIN 300 MG CAP PO SCH ×3 (05:39→21:20)
[2022-07-27] MEDS ORDERED: HYDR-4902 PO (09:37)
[2022-07-27] MEDS ORDERED: DOCU-94 PO (09:41)
[2022-07-27] MEDS: cefTRIAXone 1GM/50ML D5W 50 ML IV SCH (10:26)
[2022-07-27] MEDS: DULoxetine HCL 30 MG CAP PO SCH (10:29)
[2022-07-27] MEDS: ASPirin 81 mg TAB PO SCH (10:29)
[2022-07-27] MEDS: ATORVASTATIN 20 MG TAB PO SCH (10:29)
[2022-07-27] MEDS: MAALOX PLUS or MAALOX 30 ML PO SCH (10:29)
[2022-07-27] MEDS: VENLAFAXINE HCL 37.5mg XR cap PO SCH (10:30)
[2022-07-28] MEDS: TEMAZEPAM 15 MG CAP PO PRN (01:08)
[2022-07-28 05:00] VITALS: BP 138/80
[2022-07-28] MEDS: GABAPENTIN 300 MG CAP PO SCH (05:05)
[2022-07-28] MEDS: HYDROcodone-ACET 5/325MG TAB PO PRN ×2 (05:07→09:58)
[2022-07-28 08:26] VITALS: BP 130/80
[2022-07-28 09:00] VITALS: BP 130/80
[2022-07-28] MEDS: MAALOX PLUS or MAALOX 30 ML PO SCH (09:52)
[2022-07-28] MEDS: cefTRIAXone 1GM/50ML D5W 50 ML IV SCH (09:52)
[2022-07-28] MEDS: ASPirin 81 mg TAB PO SCH (09:52)
[2022-07-28] MEDS: DULoxetine HCL 30 MG CAP PO SCH (09:52)
[2022-07-28] MEDS: VENLAFAXINE HCL 37.5mg XR cap PO SCH (09:53)
[2022-07-28] MEDS: ATORVASTATIN 20 MG TAB PO SCH (09:53)
[2022-07-28 13:00] VITALS: BP 131/79
== END 2022-07-28 13:50 | disposition home health service (06) | DRG 542 ==
LOC: ER 03:17 → TELE 11:22 → TELE-CENTR 15:02 → CENTRAL 07-23 11:28
PROVIDERS: ADMIT Nurse Practitioner Family; ATTEND Internal Medicine Geriatric Medicine
DX: M48.56XA Collapsed vertebra, not elsewhere classified, lumbar region, initial encounter for fracture (principal); G93.41 Metabolic encephalopathy; N30.00 Acute cystitis without hematuria; N17.9 Acute kidney failure, unspecified; F01.53 Vascular dementia, unspecified severity, with mood disturbance; E11.22 Type 2 diabetes mellitus with diabetic chronic kidney disease; I12.9 Hypertensive chronic kidney disease with stage 1 through stage 4 chronic kidney disease, or unspecified chronic kidney disease; I44.0 Atrioventricular block, first degree; N18.32 Chronic kidney disease, stage 3b; G43.009 Migraine without aura, not intractable, without status migrainosus; F31.9 Bipolar disorder, unspecified; E78.5 Hyperlipidemia, unspecified; F41.9 Anxiety disorder, unspecified; Z86.73 Personal history of transient ischemic attack (TIA), and cerebral infarction without residual deficits; Z79.899 Other long term (current) drug therapy; Z79.82 Long term (current) use of aspirin; Z90.49 Acquired absence of other specified parts of digestive tract; Z98.84 Bariatric surgery status; Z82.49 Family history of ischemic heart disease and other diseases of the circulatory system; Z81.8 Family history of other mental and behavioral disorders; Z82.0 Family history of epilepsy and other diseases of the nervous system
CPT/HCPCS: 36415; 70450; 70551; 72192; 80053; 81001; 82962; 84484; 85025; 87081; 87086; 93005; 93306; 93886; 95819; 96361; 96365; 96375; 97110; 97116; 97163; 97530; C9113; G0378; J0696

== ENCOUNTER 2022-10-31 16:46 | Inpatient (IN) | payer OTHER ==
[~2022-10-31] VITALS: Ht 165.1 cm; Wt 90.7 kg
[~2022-10-31 16:46] MED LIST changes: +DOCU-94 PO
[2022-10-31 17:08] VITALS: PULSE 67; RESP 18; O2SAT 98
[2022-10-31 19:50] VITALS: PULSE 65; RESP 13; O2SAT 93
[2022-10-31] MEDS ORDERED: GLUCAGON EMERG KIT 1mg/1ml IV ONE ×2 (21:30→23:00)
[2022-10-31 21:39] LABS: Basophils # (auto) 0.1 10 ^3/uL (0-0.2); Basophils % (auto) 0.8 % (0.0-2.0); Eosinophils # (auto) 0.4 10 ^3/uL (0-0.8); Eosinophils % (auto) 3.7 % (0.0-7.0); Hematocrit 41.7 % (36.0-46.0); Hemoglobin 13.5 g/dL (12.2-16.2); Lymphocytes # (auto) 2.3 10 ^3/uL (0.4-5.4); Mean Corpuscular Hemoglobin 27.2 pg (28.0-32.0); Mean Corpuscular Hgb Conc. 32.4 g/dL (32.0-36.0); Monocytes # (auto) 0.9 10 ^3/uL (0-1.3); Monocytes % (auto) 9.1 % (0.0-12.0); Neutrophils # (auto) 6.4 10 ^3/uL (1.6-8.6); Neutrophils % (auto) 63.4 % (37.0-80.0); Nucleated Red Blood Cells % 0.1 %; Red Blood Cells 4.97 10^6/uL (4.0-5.20); Red Cell Distribution Width 14.1 % (11.8-14.3); White Blood Cell 10.1 10^3/uL (4.4-10.8)
[2022-10-31 21:55] LABS: INR 1.02 (0.9-1.15); Partial Thromboplastin Time 26.5 SEC (24.5-34.5); Prothrombin Time 10.7 sec (9.3-11.8)
[2022-10-31 22:00] LABS: Alanine Aminotransferase 21 U/L (7-40); Albumin 4.6 g/dL (3.2-4.8); Alkaline Phosphatase 112 U/L (46-116); Aspartate Aminotransferase 32 U/L (13-40); BUN/Creatinine Ratio 8.9 (10.0-20.0); Blood Urea Nitrogen 10 mg/dL (9-23); Calcium 10.1 mg/dL (8.7-10.4); Chloride 108 mmol/L (98-107); Glucose 111 mg/dL (74-106); Lipase 43 U/L (12-53); Potassium 4.1 mmol/L (3.5-5.1); Sodium 137 mmol/L (136-145)
[2022-10-31] MEDS ORDERED: KETOROLAC TROMETH 30 MG/ML 1ML VIAL IV ONE (22:00)
[2022-10-31 22:01] LABS: Bilirubin, Total 0.5 mg/dL (0.2-1.0); Total Protein 7.6 g/dL (5.7-8.2)
[2022-10-31] MEDS ORDERED: READI-CAT 2 (BARIUM SULF)(VANILLA SMOOTHIE) 450ML ONE (22:18)
[2022-10-31] MEDS ORDERED: ACETAMINOPHEN 325 MG TAB PO PRN (23:00)
[2022-10-31] MEDS ORDERED: ONDANSETRON HCL 4 MG/2 ML VIAL IV PRN (23:00)
[2022-10-31] MEDS: SODIUM CHLORIDE 0.9% 1,000 ML IV SCH (23:00)
[2022-10-31] MEDS ORDERED: DOCUSATE SOD 100 MG CAP PO PRN (23:00)
[2022-10-31] MEDS ORDERED: DEXTROSE (50%) 50ML SYRG IV PRN (23:00)
[2022-10-31] MEDS ORDERED: PANTOPRAZOLE 40 MG/10 ML VIAL INJ IV ONE (23:00)
[2022-10-31] MEDS ORDERED: HYDROmorphone HCL 2 MG/ML VL/or syr IV ONE (23:15)
[2022-10-31] MEDS ORDERED: ONDANSETRON HCL 4 MG/2 ML VIAL IV ONE (23:15)
[2022-11-01] VITALS (9 sets, daily range): BP systolic 106–136; BP diastolic 56–71; PULSE 62–94; RESP 16–20; TEMP 98–98.6; O2SAT 0–98
[2022-11-01] MEDS ORDERED: MORPHINE SULFATE INJ 2 MG/ml SYRG IV PRN (00:15)
[2022-11-01] MEDS ORDERED: NITROGLYCERIN 0.4 MG SL TAB SL PRN (00:15)
[2022-11-01] MEDS: ACCU-CHEK COMFORT CURVE STRIP VI SCH ×4 (00:28→18:00)
[2022-11-01] MEDS: InsuLIN REG 1unit/0.01ml Soln (100units/ml) SC SCH ×4 (00:43→17:20)
[2022-11-01 07:04] LABS: Alanine Aminotransferase 18 U/L (7-40); Albumin 4.3 g/dL (3.2-4.8); Alkaline Phosphatase 105 U/L (46-116); Anion Gap 5.2 (5-15); Aspartate Aminotransferase 24 U/L (13-40); BUN/Creatinine Ratio 13.4 (10.0-20.0); Bilirubin, Total 0.7 mg/dL (0.2-1.0); Blood Urea Nitrogen 15 mg/dL (9-23); Calcium 9.6 mg/dL (8.7-10.4); Carbon Dioxide 25.8 mmol/L (20-30); Chloride 109 mmol/L (98-107); Glucose 90 mg/dL (74-106); Potassium 4.1 mmol/L (3.5-5.1); Sodium 140 mmol/L (136-145); Total Protein 7.1 g/dL (5.7-8.2)
[2022-11-01 07:31] LABS: Basophils # (auto) 0.1 10 ^3/uL (0-0.2); Basophils % (auto) 1.2 % (0.0-2.0); Eosinophils # (auto) 0.3 10 ^3/uL (0-0.8); Hemoglobin 12.9 g/dL (12.2-16.2); Neutrophils # (auto) 5.9 10 ^3/uL (1.6-8.6); Red Cell Distribution Width 14.1 % (11.8-14.3)
[2022-11-01 07:33] LABS: Eosinophils % (auto) 2.7 % (0.0-7.0); Hematocrit 39.5 % (36.0-46.0); Lymphocytes # (auto) 2.3 10 ^3/uL (0.4-5.4); Lymphocytes % (auto) 24.6 % (10.0-50.0); Mean Corpuscular Hemoglobin 27.2 pg (28.0-32.0); Mean Corpuscular Hgb Conc. 32.5 g/dL (32.0-36.0); Mean Corpuscular Volume 83.6 fL (80.0-100.0); Monocytes # (auto) 0.8 10 ^3/uL (0-1.3); Neutrophils % (auto) 62.5 % (37.0-80.0); Nucleated Red Blood Cells % 0.2 %; Red Blood Cells 4.73 10^6/uL (4.0-5.20); White Blood Cell 9.4 10^3/uL (4.4-10.8)
[2022-11-01] MEDS ORDERED: LIDOCAINE VISCOUS 2% 15ML UD ONE (09:45)
[2022-11-01] MEDS ORDERED: FAMOTIDINE (10MG/ML) 2ML VL IV SCH (10:00)
[2022-11-01] MEDS: ASPirin 81 mg TAB PO SCH (10:00)
[2022-11-01] MEDS: CARVEDILOL 3.125 MG TAB PO SCH ×2 (10:00→21:47)
[2022-11-01] MEDS ORDERED: fentaNYL CITRATE 100 MCG/2 ML VL ONE (10:04)
[2022-11-01] MEDS ORDERED: MIDAZOLAM HCL 2MG/2ML 2ml VIAL (1mg/ml) ONE (10:04)
[2022-11-01] MEDS ORDERED: MORPHINE SULFATE 4 MG/ML SYR/VIAL IV PRN (10:15)
[2022-11-01] MEDS ORDERED: ePHEDrine SULFATE 50 MG/ML AMP IV PRN (10:15)
[2022-11-01] MEDS ORDERED: HYDROmorphone HCL 2 MG/ML VL/or syr IV PRN (10:15)
[2022-11-01] MEDS ORDERED: LABETALOL HCL 5 MG/ML 4ML SYRINGE IV PRN (10:15)
[2022-11-01] MEDS ORDERED: ONDANSETRON HCL 4 MG/2 ML VIAL IV PRN (10:15)
[2022-11-01] MEDS ORDERED: MIDAZOLAM HCL 2MG/2ML 2ml VIAL (1mg/ml) IV PRN (10:15)
[2022-11-01] MEDS ORDERED: PROPOFOL 10 MG/ML 20 ML IV ONE (10:17)
[2022-11-01] MEDS ORDERED: DexAMETHasone SOD PHOS 10MG/1ML VIAL INJ ONE (10:17)
[2022-11-01] MEDS: SUCRALFATE 1 GM/10 ML ORAL SUSP PO SCH ×3 (12:23→21:42)
[2022-11-01] MEDS: SODIUM CHLORIDE 0.9% 1,000 ML IV SCH (15:05)
[2022-11-01] MEDS: HYDROcodone-ACET 5/325MG TAB PO PRN (20:09)
[2022-11-01] MEDS ORDERED: TEMAZEPAM 15 MG CAP PO ONE (21:00)
[2022-11-01] MEDS: PANTOPRAZOLE 40 MG/10 ML VIAL INJ IV SCH (21:36)
[2022-11-01] MEDS: ATORVASTATIN 20 MG TAB PO SCH (21:42)
[2022-11-02] VITALS (7 sets, daily range): BP systolic 126–151; BP diastolic 54–72; PULSE 75–90; RESP 16–18; TEMP 97.6–98.3; O2SAT 0–97
[2022-11-02] MEDS: ACCU-CHEK COMFORT CURVE STRIP VI SCH ×5 (00:14→22:42)
[2022-11-02] MEDS: HYDROcodone-ACET 5/325MG TAB PO PRN ×3 (01:23→20:36)
[2022-11-02] MEDS: SUCRALFATE 1 GM/10 ML ORAL SUSP PO SCH ×4 (05:53→22:38)
[2022-11-02] MEDS: InsuLIN REG 1unit/0.01ml Soln (100units/ml) SC SCH ×5 (05:53→22:00)
[2022-11-02] MEDS ORDERED: SUMAtriptan SUCCINATE 25 MG TAB PO ONE (06:00)
[2022-11-02] MEDS: SODIUM CHLORIDE 0.9% 1,000 ML IV SCH (08:20)
[2022-11-02] MEDS: ASPirin 81 mg TAB PO SCH (10:14)
[2022-11-02] MEDS: PANTOPRAZOLE 40 MG/10 ML VIAL INJ IV SCH ×2 (10:14→22:38)
[2022-11-02] MEDS: CARVEDILOL 3.125 MG TAB PO SCH ×2 (10:16→22:37)
[2022-11-02] MEDS ORDERED: amLODIPine BESYLATE 5 MG TAB PO ONE (12:30)
[2022-11-02 13:39] LABS: Basophils # (auto) 0.1 10 ^3/uL (0-0.2); Basophils % (auto) 0.7 % (0.0-2.0); Eosinophils # (auto) 0 10 ^3/uL (0-0.8); Eosinophils % (auto) 0.1 % (0.0-7.0); Hematocrit 36.7 % (36.0-46.0); Lymphocytes # (auto) 1.9 10 ^3/uL (0.4-5.4); Lymphocytes % (auto) 14.1 % (10.0-50.0); Mean Corpuscular Hemoglobin 27.1 pg (28.0-32.0); Mean Corpuscular Hgb Conc. 32.6 g/dL (32.0-36.0); Mean Corpuscular Volume 83.1 fL (80.0-100.0); Monocytes % (auto) 7.6 % (0.0-12.0); Neutrophils # (auto) 10.2 10 ^3/uL (1.6-8.6); Neutrophils % (auto) 77.5 % (37.0-80.0); Red Blood Cells 4.42 10^6/uL (4.0-5.20); Red Cell Distribution Width 13.9 % (11.8-14.3); White Blood Cell 13.2 10^3/uL (4.4-10.8)
[2022-11-02 13:55] LABS: Anion Gap 7.3 (5-15); Carbon Dioxide 23.7 mmol/L (20-30); Chloride 109 mmol/L (98-107); Potassium 3.7 mmol/L (3.5-5.1); Sodium 140 mmol/L (136-145)
[2022-11-02 13:57] LABS: Calcium 9.5 mg/dL (8.5-10.1)
[2022-11-02 14:01] LABS: Glucose 158 mg/dL (74-106)
[2022-11-02 14:02] LABS: BUN/Creatinine Ratio 14.3 (10.0-20.0); Blood Urea Nitrogen 14 mg/dL (9-23); Magnesium 1.8 mg/dL (1.6-2.6)
[2022-11-02] MEDS: PIPERACILLIN-TAZOB 3.375GM 100 ML IV SCH ×2 (15:01→22:41)
[2022-11-02] MEDS ORDERED: DEXTROSE (50%) 50ML SYRG IV PRN (19:45)
[2022-11-02] MEDS: ATORVASTATIN 20 MG TAB PO SCH (22:37)
[2022-11-03] MEDS: HYDROcodone-ACET 5/325MG TAB PO PRN ×3 (01:48→10:19)
[2022-11-03 05:00] VITALS: BP 165/82; PULSE 82; RESP 18; TEMP 98; O2SAT 93
[2022-11-03] MEDS: PIPERACILLIN-TAZOB 3.375GM 100 ML IV SCH ×2 (05:16→14:00)
[2022-11-03] MEDS: ACCU-CHEK COMFORT CURVE STRIP VI SCH ×2 (06:02→11:04)
[2022-11-03] MEDS: SUCRALFATE 1 GM/10 ML ORAL SUSP PO SCH ×2 (06:02→11:06)
[2022-11-03] MEDS: InsuLIN REG 1unit/0.01ml Soln (100units/ml) SC SCH ×2 (06:05→11:04)
[2022-11-03 07:31] LABS: Anion Gap 8.6 (5-15); Carbon Dioxide 24.4 mmol/L (20-30); Chloride 106 mmol/L (98-107); Potassium 3.6 mmol/L (3.5-5.1); Sodium 139 mmol/L (136-145)
[2022-11-03 07:32] LABS: Calcium 9.6 mg/dL (8.5-10.1)
[2022-11-03 07:35] LABS: Basophils # (auto) 0 10 ^3/uL (0-0.2); Basophils % (auto) 0.5 % (0.0-2.0); Eosinophils # (auto) 0 10 ^3/uL (0-0.8); Eosinophils % (auto) 0.2 % (0.0-7.0); Hemoglobin 12.8 g/dL (12.2-16.2); Lymphocytes # (auto) 2.5 10 ^3/uL (0.4-5.4); Lymphocytes % (auto) 25.3 % (10.0-50.0); Mean Corpuscular Hemoglobin 27.8 pg (28.0-32.0); Mean Corpuscular Hgb Conc. 32.9 g/dL (32.0-36.0); Mean Corpuscular Volume 84.7 fL (80.0-100.0); Monocytes # (auto) 0.9 10 ^3/uL (0-1.3); Monocytes % (auto) 9.5 % (0.0-12.0); Neutrophils # (auto) 6.3 10 ^3/uL (1.6-8.6); Neutrophils % (auto) 64.5 % (37.0-80.0); Nucleated Red Blood Cells % 0.1 %; Red Blood Cells 4.61 10^6/uL (4.0-5.20); Red Cell Distribution Width 13.6 % (11.8-14.3); White Blood Cell 9.8 10^3/uL (4.4-10.8)
[2022-11-03 07:36] LABS: Cholesterol 133 mg/dL (< 200)
[2022-11-03 07:37] LABS: BUN/Creatinine Ratio 10.4 (10.0-20.0); Blood Urea Nitrogen 11 mg/dL (9-23); Glucose 132 mg/dL (74-106); Magnesium 1.7 mg/dL (1.6-2.6); Triglycerides 169 mg/dL (< 150)
[2022-11-03 07:38] LABS: LDL Cholesterol 74 mg/dL (< 100)
[2022-11-03 07:39] LABS: HDL Cholesterol 33 mg/dL (40-59)
[2022-11-03 08:15] VITALS: O2SAT 0
[2022-11-03 09:00] VITALS: BP 117/63; PULSE 69; RESP 15; TEMP 97.8; O2SAT 95
[2022-11-03] MEDS ORDERED: amLODIPine BESYLATE 5 MG TAB PO SCH ×2 (10:00)
[2022-11-03] MEDS: ASPirin 81 mg TAB PO SCH (10:12)
[2022-11-03] MEDS: PANTOPRAZOLE 40 MG/10 ML VIAL INJ IV SCH (10:12)
[2022-11-03] MEDS: CARVEDILOL 3.125 MG TAB PO SCH (10:13)
[2022-11-03] MEDS ORDERED: SUCR1TAB22 OR (11:05)
[2022-11-03] MEDS ORDERED: PANT40TA2 PO ×3 (11:05→11:41)
[2022-11-03 12:39] VITALS: BP 117/63; PULSE 69; RESP 15; TEMP 97.8; O2SAT 95
[2022-11-03] MEDS ORDERED: ATORVASTATIN 20 MG TAB PO SCH (22:00)
== END 2022-11-03 13:30 | disposition home or self-care (01) | DRG 394 ==
LOC: EDBD 16:46 → ER 16:46 → OVERFLOW 11-01 00:03 → CENTRAL 11-01 12:16
PROVIDERS: ADMIT Internal Medicine Geriatric Medicine; ATTEND Student in an Organized Health Care Education/Training Program
PROC: 0DB78ZX Excision of Stomach, Pylorus, Via Natural or Artificial Opening Endoscopic, Diagnostic (ICD-10-PCS; 2022-11-01)
PROC: 0DB48ZX Excision of Esophagogastric Junction, Via Natural or Artificial Opening Endoscopic, Diagnostic (ICD-10-PCS; 2022-11-01)
PROC: 0DB98ZX Excision of Duodenum, Via Natural or Artificial Opening Endoscopic, Diagnostic (ICD-10-PCS; principal; 2022-11-01 10:12)
DX: T18.128A Food in esophagus causing other injury, initial encounter (principal); K22.10 Ulcer of esophagus without bleeding; Z98.84 Bariatric surgery status; E11.22 Type 2 diabetes mellitus with diabetic chronic kidney disease; K29.70 Gastritis, unspecified, without bleeding; F32.A Depression, unspecified; F41.9 Anxiety disorder, unspecified; E66.9 Obesity, unspecified; E78.5 Hyperlipidemia, unspecified; K25.9 Gastric ulcer, unspecified as acute or chronic, without hemorrhage or perforation; K44.9 Diaphragmatic hernia without obstruction or gangrene; I12.9 Hypertensive chronic kidney disease with stage 1 through stage 4 chronic kidney disease, or unspecified chronic kidney disease; N18.9 Chronic kidney disease, unspecified; Z81.8 Family history of other mental and behavioral disorders; Z82.49 Family history of ischemic heart disease and other diseases of the circulatory system; Z86.73 Personal history of transient ischemic attack (TIA), and cerebral infarction without residual deficits; Z90.49 Acquired absence of other specified parts of digestive tract; Z68.33 Body mass index [BMI] 33.0-33.9, adult
CPT/HCPCS: 36415; 70490; 71045; 71250; 74220; 80048; 80053; 80061; 82962; 83036; 83735; 85025; 93005; 96374; 96375; C9113; G0378; J1100; J1815; J2250; J2405; J2543; J2704

== ENCOUNTER 2022-11-15 13:03 | Inpatient (IN) | payer OTHER ==
[~2022-11-15] VITALS: Ht 162.6 cm; Wt 92.4 kg
[~2022-11-15 13:03] MED LIST changes: +SUCR1TAB22 OR
[2022-11-15 14:38] LABS: Basophils # (auto) 0.1 10 ^3/uL (0-0.2); Basophils % (auto) 0.9 % (0.0-2.0); Eosinophils # (auto) 0.4 10 ^3/uL (0-0.8); Eosinophils % (auto) 3.9 % (0.0-7.0); Lymphocytes # (auto) 2.4 10 ^3/uL (0.4-5.4); Mean Corpuscular Hemoglobin 27.7 pg (28.0-32.0); Mean Corpuscular Hgb Conc. 33.3 g/dL (32.0-36.0); Mean Corpuscular Volume 83.2 fL (80.0-100.0); Monocytes # (auto) 0.9 10 ^3/uL (0-1.3); Monocytes % (auto) 9.7 % (0.0-12.0); Neutrophils # (auto) 5.7 10 ^3/uL (1.6-8.6); Neutrophils % (auto) 60.5 % (37.0-80.0); Red Blood Cells 4.68 10^6/uL (4.0-5.20); Red Cell Distribution Width 13.5 % (11.8-14.3); White Blood Cell 9.4 10^3/uL (4.4-10.8)
[2022-11-15 15:00] LABS: Alanine Aminotransferase 16 U/L (7-40); Albumin 4.2 g/dL (3.2-4.8); Alkaline Phosphatase 114 U/L (46-116); Anion Gap 5 (5-15); Aspartate Aminotransferase 17 U/L (13-40); BUN/Creatinine Ratio 13.8 (10.0-20.0); Bilirubin, Total 0.5 mg/dL (0.2-1.0); Blood Urea Nitrogen 18 mg/dL (9-23); Calcium 9.9 mg/dL (8.7-10.4); Carbon Dioxide 27 mmol/L (20-30); Chloride 106 mmol/L (98-107); Glucose 103 mg/dL (74-106); Potassium 4.3 mmol/L (3.5-5.1); Sodium 138 mmol/L (136-145); Total Protein 6.7 g/dL (5.7-8.2)
[2022-11-15] MEDS ORDERED: ACETAMINOPHEN 325 MG TAB PO PRN (17:00)
[2022-11-15] MEDS ORDERED: DULoxetine HCL 30 MG CAP PO SCH (17:07)
[2022-11-15] MEDS: SODIUM CHLORIDE 0.9% 1,000 ML IV SCH (17:52)
[2022-11-15 17:53] VITALS: PULSE 78; RESP 18; O2SAT 96
[2022-11-15 18:10] LABS: Erythrocyte Sedimentation Rate 25 mm/hr (0-20)
[2022-11-15 19:35] VITALS: PULSE 65; RESP 16; O2SAT 95
[2022-11-15] MEDS: AMITRIPTYLINE HCL 25 MG TAB PO SCH (22:24)
[2022-11-15] MEDS: QUEtiapine FUMARATE 100 MG TAB PO SCH (22:24)
[2022-11-15] MEDS: GABAPENTIN 300 MG CAP PO SCH (22:25)
[2022-11-15] MEDS: HYDROcodone-ACET 5/325MG TAB PO PRN (22:53)
[2022-11-16] MEDS: SODIUM CHLORIDE 0.9% 1,000 ML IV SCH ×3 (04:45→18:46)
[2022-11-16] MEDS: GABAPENTIN 300 MG CAP PO SCH ×3 (05:53→22:15)
[2022-11-16 06:13] LABS: Basophils # (auto) 0.1 10 ^3/uL (0-0.2); Basophils % (auto) 1.1 % (0.0-2.0); Eosinophils # (auto) 0.2 10 ^3/uL (0-0.8); Eosinophils % (auto) 3.9 % (0.0-7.0); Hematocrit 32.1 % (36.0-46.0); Hemoglobin 10.6 g/dL (12.2-16.2); Lymphocytes # (auto) 2.2 10 ^3/uL (0.4-5.4); Lymphocytes % (auto) 35.9 % (10.0-50.0); Mean Corpuscular Hemoglobin 27.4 pg (28.0-32.0); Monocytes # (auto) 0.6 10 ^3/uL (0-1.3); Monocytes % (auto) 10.5 % (0.0-12.0); Neutrophils % (auto) 48.6 % (37.0-80.0); Nucleated Red Blood Cells % 0.1 %; Red Blood Cells 3.87 10^6/uL (4.0-5.20); Red Cell Distribution Width 13.6 % (11.8-14.3); White Blood Cell 6.2 10^3/uL (4.4-10.8)
[2022-11-16 06:39] LABS: Alanine Aminotransferase 11 U/L (7-40); Albumin 3.4 g/dL (3.2-4.8); Alkaline Phosphatase 86 U/L (46-116); Anion Gap 6 (5-15); Aspartate Aminotransferase 13 U/L (13-40); BUN/Creatinine Ratio 13.8 (10.0-20.0); Bilirubin, Total 0.3 mg/dL (0.2-1.0); Blood Urea Nitrogen 15 mg/dL (9-23); Calcium 8.8 mg/dL (8.7-10.4); Carbon Dioxide 27 mmol/L (20-30); Chloride 109 mmol/L (98-107); Glucose 101 mg/dL (74-106); Potassium 3.6 mmol/L (3.5-5.1); Sodium 142 mmol/L (136-145); Total Protein 5.7 g/dL (5.7-8.2)
[2022-11-16 07:34] VITALS: PULSE 74; RESP 16; O2SAT 96
[2022-11-16 08:53] VITALS: PULSE 71; RESP 16; O2SAT 95
[2022-11-16] MEDS: TURMERIC 1500 MG PO SCH (10:00)
[2022-11-16] MEDS: SALMON OIL PO SCH (10:00)
[2022-11-16] MEDS: COENZYME Q10 300 MG PO SCH (10:00)
[2022-11-16] MEDS: DULoxetine HCL 30 MG CAP PO SCH (10:22)
[2022-11-16] MEDS: CITALOPRAM HYDROBR 20 MG TAB PO SCH (10:22)
[2022-11-16] MEDS: ASPirin-EC 81 mg tab PO SCH (10:22)
[2022-11-16 12:52] VITALS: BP 138/73; PULSE 71; RESP 16; TEMP 97.9; O2SAT 95
[2022-11-16] MEDS ORDERED: HYDROcodone-ACET 10/325MG TAB PO PRN (16:00)
[2022-11-16] MEDS ORDERED: hydrALAZINE HCL 20 MG/ML VL IV PRN (16:00)
[2022-11-16] MEDS ORDERED: DEXTROSE (50%) 50ML SYRG IV PRN (16:00)
[2022-11-16 16:50] VITALS: BP 132/60; PULSE 67; RESP 18; TEMP 98.1; O2SAT 96
[2022-11-16] MEDS: ACCU-CHEK COMFORT CURVE STRIP VI SCH ×2 (17:00→22:00)
[2022-11-16] MEDS: InsuLIN REG 1unit/0.01ml Soln (100units/ml) SC SCH ×2 (17:00→22:00)
[2022-11-16] MEDS ORDERED: FUROSEMIDE 20 MG/2 ML VIAL IV SCH (18:00)
[2022-11-16] MEDS: ENOXAPARIN SOD 40 MG/0.4 ML SYRINGE SC SCH (18:36)
[2022-11-16] MEDS: MORPHINE SULFATE INJ 2 MG/ml SYRG IV PRN (18:36)
[2022-11-16 20:00] VITALS: PULSE 81; RESP 18; TEMP 36.7
[2022-11-16 22:00] VITALS: BP 131/57; PULSE 80; RESP 17; TEMP 98.3; O2SAT 93
[2022-11-16] MEDS: ATORVASTATIN 20 MG TAB PO SCH (22:14)
[2022-11-16] MEDS: AMITRIPTYLINE HCL 25 MG TAB PO SCH (22:15)
[2022-11-16] MEDS: QUEtiapine FUMARATE 100 MG TAB PO SCH (22:27)
[2022-11-17] VITALS (7 sets, daily range): BP systolic 116–148; BP diastolic 59–74; PULSE 79–90; RESP 17–20; TEMP 98–98.3; O2SAT 93–97
[2022-11-17] MEDS: MORPHINE SULFATE INJ 2 MG/ml SYRG IV PRN ×3 (03:03→22:25)
[2022-11-17] MEDS: GABAPENTIN 300 MG CAP PO SCH ×3 (05:46→21:22)
[2022-11-17 05:59] LABS: Anion Gap 5 (5-15); Carbon Dioxide 27 mmol/L (20-30); Chloride 110 mmol/L (98-107); Potassium 3.9 mmol/L (3.5-5.1); Sodium 142 mmol/L (136-145)
[2022-11-17 06:00] LABS: Calcium 8.9 mg/dL (8.7-10.4)
[2022-11-17 06:05] LABS: BUN/Creatinine Ratio 10.4 (10.0-20.0); Blood Urea Nitrogen 10 mg/dL (9-23); Glucose 100 mg/dL (74-106)
[2022-11-17 06:07] LABS: Basophils # (auto) 0.1 10 ^3/uL (0-0.2); Basophils % (auto) 0.9 % (0.0-2.0); Eosinophils # (auto) 0.3 10 ^3/uL (0-0.8); Eosinophils % (auto) 4.2 % (0.0-7.0); Hematocrit 30.7 % (36.0-46.0); Hemoglobin 10.3 g/dL (12.2-16.2); Lymphocytes % (auto) 33.3 % (10.0-50.0); Mean Corpuscular Hemoglobin 27.9 pg (28.0-32.0); Mean Corpuscular Hgb Conc. 33.4 g/dL (32.0-36.0); Mean Corpuscular Volume 83.4 fL (80.0-100.0); Monocytes # (auto) 0.8 10 ^3/uL (0-1.3); Monocytes % (auto) 12.6 % (0.0-12.0); Nucleated Red Blood Cells % 0.1 %; Red Blood Cells 3.68 10^6/uL (4.0-5.20); Red Cell Distribution Width 13.8 % (11.8-14.3); White Blood Cell 6.1 10^3/uL (4.4-10.8)
[2022-11-17] MEDS: ACCU-CHEK COMFORT CURVE STRIP VI SCH ×4 (07:00→22:27)
[2022-11-17] MEDS: InsuLIN REG 1unit/0.01ml Soln (100units/ml) SC SCH ×4 (07:00→22:26)
[2022-11-17] MEDS: SALMON OIL PO SCH (10:00)
[2022-11-17] MEDS: COENZYME Q10 300 MG PO SCH (10:00)
[2022-11-17] MEDS: TURMERIC 1500 MG PO SCH (10:00)
[2022-11-17] MEDS: DULoxetine HCL 30 MG CAP PO SCH (11:59)
[2022-11-17] MEDS: FUROSEMIDE 20 MG/2 ML VIAL IV SCH (11:59)
[2022-11-17] MEDS: ENOXAPARIN SOD 40 MG/0.4 ML SYRINGE SC SCH (11:59)
[2022-11-17] MEDS: CITALOPRAM HYDROBR 20 MG TAB PO SCH (12:00)
[2022-11-17] MEDS: HYDROcodone-ACET 5/325MG TAB PO PRN ×2 (12:00→21:22)
[2022-11-17] MEDS: ASPirin-EC 81 mg tab PO SCH (12:00)
[2022-11-17] MEDS ORDERED: IBUPROFEN 800 MG TAB PO PRN (12:45)
[2022-11-17] MEDS ORDERED: methylPREDNISolone SOD SUCC 40 MG/ML VL IV ONE (12:45)
[2022-11-17] MEDS: SODIUM CHLORIDE 0.9% 1,000 ML IV SCH ×2 (13:01→18:54)
[2022-11-17] MEDS ORDERED: GABAPENTIN 300 MG CAP PO SCH (14:00)
[2022-11-17 14:07] LABS: Erythrocyte Sedimentation Rate 17 mm/hr (0-20)
[2022-11-17 15:45] LABS: Urine Bacteria NONE SEEN /hpf (None Seen); Urine Blood Negative /uL (Negative); Urine Clarity Clear (Clear); Urine Color Colorless (Yellow); Urine Protein, UAD Negative (Negative); Urine Specific Gravity 1.006 (1.001-1.035); Urine Urobilinogen Normal (Negative); Urine WBC <1 /hpf (0 - 5); Urine pH 7.5 (5.0-8.0)
[2022-11-17] MEDS: AMITRIPTYLINE HCL 25 MG TAB PO SCH (21:22)
[2022-11-17] MEDS: QUEtiapine FUMARATE 100 MG TAB PO SCH (21:22)
[2022-11-17] MEDS: ATORVASTATIN 20 MG TAB PO SCH (21:23)
[2022-11-18] MEDS: MORPHINE SULFATE INJ 2 MG/ml SYRG IV PRN ×2 (04:55→13:26)
[2022-11-18 05:00] VITALS: BP 151/75; PULSE 94; RESP 17; TEMP 97.8; O2SAT 95
[2022-11-18] MEDS: SODIUM CHLORIDE 0.9% 1,000 ML IV SCH (05:00)
[2022-11-18 05:47] LABS: Basophils # (auto) 0 10 ^3/uL (0-0.2); Basophils % (auto) 0.1 % (0.0-2.0); Eosinophils # (auto) 0 10 ^3/uL (0-0.8); Monocytes # (auto) 0.3 10 ^3/uL (0-1.3); Neutrophils # (auto) 6.9 10 ^3/uL (1.6-8.6)
[2022-11-18 05:50] LABS: Hematocrit 34.1 % (36.0-46.0); Hemoglobin 11.6 g/dL (12.2-16.2); Lymphocytes % (auto) 12.4 % (10.0-50.0); Mean Corpuscular Hemoglobin 27.8 pg (28.0-32.0); Mean Corpuscular Hgb Conc. 34.1 g/dL (32.0-36.0); Mean Corpuscular Volume 81.5 fL (80.0-100.0); Neutrophils % (auto) 83.5 % (37.0-80.0); Red Blood Cells 4.19 10^6/uL (4.0-5.20); Red Cell Distribution Width 13.6 % (11.8-14.3); White Blood Cell 8.2 10^3/uL (4.4-10.8)
[2022-11-18 05:53] LABS: Chloride 108 mmol/L (98-107); Sodium 141 mmol/L (136-145)
[2022-11-18 05:54] LABS: Anion Gap 9 (5-15); Calcium 9.7 mg/dL (8.5-10.1); Carbon Dioxide 24 mmol/L (20-30)
[2022-11-18 05:59] LABS: BUN/Creatinine Ratio 10.9 (10.0-20.0); Blood Urea Nitrogen 10 mg/dL (9-23); Glucose 143 mg/dL (74-106)
[2022-11-18] MEDS: ACCU-CHEK COMFORT CURVE STRIP VI SCH ×3 (06:45→17:30)
[2022-11-18] MEDS: InsuLIN REG 1unit/0.01ml Soln (100units/ml) SC SCH ×3 (07:20→17:49)
[2022-11-18] MEDS: GABAPENTIN 300 MG CAP PO SCH ×2 (07:21→13:25)
[2022-11-18 08:00] VITALS: BP 147/80; PULSE 75; RESP 18; TEMP 98.5; O2SAT 100
[2022-11-18] MEDS: ENOXAPARIN SOD 40 MG/0.4 ML SYRINGE SC SCH (08:50)
[2022-11-18] MEDS: methylPREDNISolone SOD SUCC 40 MG/ML VL IV SCH (08:50)
[2022-11-18] MEDS: CITALOPRAM HYDROBR 20 MG TAB PO SCH (08:51)
[2022-11-18] MEDS: DULoxetine HCL 30 MG CAP PO SCH (08:51)
[2022-11-18] MEDS: FUROSEMIDE 20 MG/2 ML VIAL IV SCH (08:52)
[2022-11-18] MEDS: ASPirin-EC 81 mg tab PO SCH (08:52)
[2022-11-18] MEDS: TURMERIC 1500 MG PO SCH (08:53)
[2022-11-18] MEDS: COENZYME Q10 300 MG PO SCH (08:53)
[2022-11-18] MEDS: SALMON OIL PO SCH (08:53)
[2022-11-18 12:00] VITALS: BP 150/83; PULSE 87; RESP 20; TEMP 98.7; O2SAT 92
[2022-11-18] MEDS ORDERED: MORPHINE SULFATE INJ 2 MG/ml SYRG IV PRN (15:45)
[2022-11-18] MEDS: METOPROLOL TARTRATE 25 MG TAB PO SCH (15:49)
[2022-11-18] MEDS: HYDROcodone-ACET 5/325MG TAB PO PRN (15:53)
[2022-11-18 17:00] VITALS: BP 129/73; PULSE 80; RESP 20; TEMP 98.7; O2SAT 93
[2022-11-18 20:00] VITALS: PULSE 68; RESP 18; O2SAT 96
[2022-11-18 22:00] VITALS: BP 138/58; PULSE 68; RESP 18; TEMP 98; O2SAT 96
[2022-11-19] MEDS: ACCU-CHEK COMFORT CURVE STRIP VI SCH ×3 (00:50→12:55)
[2022-11-19] MEDS: InsuLIN REG 1unit/0.01ml Soln (100units/ml) SC SCH ×3 (00:51→13:02)
[2022-11-19] MEDS: GABAPENTIN 300 MG CAP PO SCH ×3 (00:53→14:41)
[2022-11-19] MEDS: AMITRIPTYLINE HCL 25 MG TAB PO SCH (00:54)
[2022-11-19] MEDS: ATORVASTATIN 20 MG TAB PO SCH (00:54)
[2022-11-19] MEDS: QUEtiapine FUMARATE 100 MG TAB PO SCH (00:54)
[2022-11-19] MEDS: HYDROcodone-ACET 5/325MG TAB PO PRN ×2 (00:58→06:37)
[2022-11-19 05:00] VITALS: BP 128/56; PULSE 76; RESP 18; TEMP 98.2; O2SAT 95
[2022-11-19 05:19] LABS: Basophils # (auto) 0 10 ^3/uL (0-0.2); Basophils % (auto) 0.5 % (0.0-2.0); Eosinophils # (auto) 0 10 ^3/uL (0-0.8); Eosinophils % (auto) 0.1 % (0.0-7.0); Hematocrit 32.7 % (36.0-46.0); Hemoglobin 10.8 g/dL (12.2-16.2); Lymphocytes # (auto) 2.7 10 ^3/uL (0.4-5.4); Lymphocytes % (auto) 24.5 % (10.0-50.0); Mean Corpuscular Hemoglobin 27.3 pg (28.0-32.0); Mean Corpuscular Hgb Conc. 33.1 g/dL (32.0-36.0); Mean Corpuscular Volume 82.6 fL (80.0-100.0); Monocytes # (auto) 1.3 10 ^3/uL (0-1.3); Monocytes % (auto) 11.6 % (0.0-12.0); Neutrophils # (auto) 6.9 10 ^3/uL (1.6-8.6); Neutrophils % (auto) 63.3 % (37.0-80.0); Nucleated Red Blood Cells % 0.1 %; Red Blood Cells 3.96 10^6/uL (4.0-5.20); Red Cell Distribution Width 13.7 % (11.8-14.3); White Blood Cell 10.8 10^3/uL (4.4-10.8)
[2022-11-19 05:24] LABS: Chloride 109 mmol/L (98-107); Potassium 3.9 mmol/L (3.5-5.1); Sodium 141 mmol/L (136-145)
[2022-11-19 05:25] LABS: Anion Gap 5 (5-15); Calcium 9.4 mg/dL (8.5-10.1); Carbon Dioxide 27 mmol/L (20-30)
[2022-11-19 05:30] LABS: BUN/Creatinine Ratio 14.9 (10.0-20.0); Blood Urea Nitrogen 13 mg/dL (9-23); Glucose 94 mg/dL (74-106)
[2022-11-19 08:00] VITALS: BP 132/74; PULSE 75; RESP 20; TEMP 98.2; O2SAT 92
[2022-11-19] MEDS: SALMON OIL PO SCH (10:00)
[2022-11-19] MEDS ORDERED: FUROSEMIDE 20 MG TAB PO SCH (10:00)
[2022-11-19] MEDS: TURMERIC 1500 MG PO SCH (10:00)
[2022-11-19] MEDS: COENZYME Q10 300 MG PO SCH (10:00)
[2022-11-19] MEDS ORDERED: FURO1TAB33 PO (10:06)
[2022-11-19] MEDS ORDERED: PRED20TA2 PO (10:06)
[2022-11-19] MEDS ORDERED: IBUP-1454 PO (10:08)
[2022-11-19] MEDS: methylPREDNISolone SOD SUCC 40 MG/ML VL IV SCH (10:20)
[2022-11-19] MEDS: ASPirin-EC 81 mg tab PO SCH (10:21)
[2022-11-19] MEDS: DULoxetine HCL 30 MG CAP PO SCH (10:21)
[2022-11-19] MEDS: CITALOPRAM HYDROBR 20 MG TAB PO SCH (10:21)
[2022-11-19] MEDS: ENOXAPARIN SOD 40 MG/0.4 ML SYRINGE SC SCH (10:21)
[2022-11-19] MEDS: METOPROLOL TARTRATE 25 MG TAB PO SCH (10:22)
[2022-11-19 12:00] VITALS: BP 131/81; PULSE 63; RESP 20; TEMP 98.3; O2SAT 96
[2022-11-19 12:38] VITALS: BP 132/74; PULSE 75; TEMP 36.8
[2022-11-19 16:00] VITALS: BP 141/68; PULSE 74; RESP 19; TEMP 98.1; O2SAT 92
== END 2022-11-19 16:30 | disposition home or self-care (01) | DRG 552 ==
LOC: ER 13:03 → OVERFLOW 16:51 → EAST 11-16 08:38
PROVIDERS: ADMIT Internal Medicine; ATTEND Student in an Organized Health Care Education/Training Program
DX: M54.16 Radiculopathy, lumbar region (principal); G45.9 Transient cerebral ischemic attack, unspecified; E11.42 Type 2 diabetes mellitus with diabetic polyneuropathy; E66.01 Morbid (severe) obesity due to excess calories; E78.5 Hyperlipidemia, unspecified; N18.9 Chronic kidney disease, unspecified; F41.9 Anxiety disorder, unspecified; E11.22 Type 2 diabetes mellitus with diabetic chronic kidney disease; I12.9 Hypertensive chronic kidney disease with stage 1 through stage 4 chronic kidney disease, or unspecified chronic kidney disease; Z81.8 Family history of other mental and behavioral disorders; Z82.49 Family history of ischemic heart disease and other diseases of the circulatory system; Z86.73 Personal history of transient ischemic attack (TIA), and cerebral infarction without residual deficits; Z90.49 Acquired absence of other specified parts of digestive tract; Z71.3 Dietary counseling and surveillance; F31.9 Bipolar disorder, unspecified; M79.671 Pain in right foot; M79.672 Pain in left foot; Z68.35 Body mass index [BMI] 35.0-35.9, adult
CPT/HCPCS: 36415; 70450; 72148; 73600; 73620; 80048; 80053; 81001; 82962; 83880; 84484; 84550; 85025; 85652; 86141; 87086; 93925; 93970; 97110; 97116; 97163; 97530; G0378; J1815

== ENCOUNTER 2022-11-22 18:29 | Inpatient (IN) | payer OTHER ==
[~2022-11-22] VITALS: Ht 170.2 cm; Wt 88.0 kg
[~2022-11-22 18:29] MED LIST changes: +FURO1TAB33 PO; +IBUP-1454 PO; -LEVO500T31 PO; +PRED20TA2 PO
[2022-11-22 19:20] LABS: Basophils # (auto) 0.1 10 ^3/uL (0-0.2); Basophils % (auto) 0.9 % (0.0-2.0); Eosinophils # (auto) 0 10 ^3/uL (0-0.8); Eosinophils % (auto) 0.1 % (0.0-7.0); Hematocrit 42.9 % (36.0-46.0); Hemoglobin 14.1 g/dL (12.2-16.2); Lymphocytes # (auto) 2.9 10 ^3/uL (0.4-5.4); Lymphocytes % (auto) 24.1 % (10.0-50.0); Mean Corpuscular Hemoglobin 27.1 pg (28.0-32.0); Mean Corpuscular Hgb Conc. 32.9 g/dL (32.0-36.0); Mean Corpuscular Volume 82.4 fL (80.0-100.0); Monocytes % (auto) 8.6 % (0.0-12.0); Neutrophils # (auto) 8.1 10 ^3/uL (1.6-8.6); Neutrophils % (auto) 66.3 % (37.0-80.0); Nucleated Red Blood Cells % 0.1 %; Red Cell Distribution Width 13.9 % (11.8-14.3); White Blood Cell 12.2 10^3/uL (4.4-10.8)
[2022-11-22 19:32] VITALS: PULSE 68; RESP 14; O2SAT 98
[2022-11-22 19:36] LABS: Alanine Aminotransferase 16 U/L (7-40); Albumin 4.8 g/dL (3.2-4.8); Alkaline Phosphatase 118 U/L (46-116); Anion Gap 6 (5-15); Aspartate Aminotransferase 12 U/L (13-40); BUN/Creatinine Ratio 10.8 (10.0-20.0); Bilirubin, Total 0.5 mg/dL (0.2-1.0); Blood Urea Nitrogen 15 mg/dL (9-23); Calcium 9.8 mg/dL (8.7-10.4); Carbon Dioxide 28 mmol/L (20-30); Chloride 105 mmol/L (98-107); Glucose 133 mg/dL (74-106); Potassium 3.9 mmol/L (3.5-5.1); Sodium 139 mmol/L (136-145); Total Protein 7.9 g/dL (5.7-8.2)
[2022-11-22 19:40] LABS: INR 0.97 (0.9-1.15); Partial Thromboplastin Time 21.7 SEC (24.5-34.5); Prothrombin Time 10.2 sec (9.3-11.8)
[2022-11-22] MEDS ORDERED: ACETAMINOPHEN 325 MG TAB PO ONE (23:15)
[2022-11-22 23:57] LABS: Urine Bacteria MOD /hpf (None Seen); Urine Blood Negative /uL (Negative); Urine Clarity HAZY (Clear); Urine Color Colorless (Yellow); Urine Hyaline Cast FEW /lpf (0 - 2); Urine Protein, UAD Negative (Negative); Urine Specific Gravity 1.014 (1.001-1.035); Urine Urobilinogen Normal (Negative); Urine WBC 8 /hpf (0 - 5); Urine pH 6.5 (5.0-8.0)
[2022-11-23] LABS: Amphetamine Screen, Urine Neg (NEGATIVE); Barbiturate Scree,Urine Neg (NEGATIVE); Benzodiazephine Screen, Urine Neg (NEGATIVE); Cannabinoid Screen, Urine Neg (NEGATIVE); Cocaine Screen, Urine Neg (NEGATIVE); Opiate Scree,Urine Pos (NEGATIVE); Phencyclidine Screen, Urine Neg (NEGATIVE)
[2022-11-23] MEDS ORDERED: ONDANSETRON HCL 4 MG/2 ML VIAL IV PRN (01:00)
[2022-11-23] MEDS ORDERED: SODIUM CHLORIDE 0.9% 1,000 ML IV SCH (01:00)
[2022-11-23] MEDS ORDERED: NITROGLYCERIN 0.4 MG SL TAB SL PRN (01:00)
[2022-11-23] MEDS ORDERED: ACETAMINOPHEN 325 MG TAB PO PRN (01:00)
[2022-11-23] MEDS ORDERED: MORPHINE SULFATE INJ 2 MG/ml SYRG IV PRN (01:00)
[2022-11-23] MEDS ORDERED: DOCUSATE SOD 100 MG CAP PO PRN (01:00)
[2022-11-23] MEDS ORDERED: hydrALAZINE HCL 20 MG/ML VL IV PRN (01:00)
[2022-11-23] MEDS ORDERED: cefTRIAXone 1GM/50ML D5W 50 ML IV ONE (01:00)
[2022-11-23] MEDS ORDERED: MORPHINE SULFATE 4 MG/ML SYR/VIAL IV ONE ×2 (01:15→08:45)
[2022-11-23] MEDS ORDERED: ONDANSETRON HCL 4 MG/2 ML VIAL IV ONE (01:15)
[2022-11-23 05:20] LABS: Basophils # (auto) 0.1 10 ^3/uL (0-0.2); Basophils % (auto) 0.7 % (0.0-2.0); Eosinophils # (auto) 0.2 10 ^3/uL (0-0.8); Eosinophils % (auto) 1.4 % (0.0-7.0); Hematocrit 43.1 % (36.0-46.0); Hemoglobin 14.1 g/dL (12.2-16.2); Lymphocytes # (auto) 4.5 10 ^3/uL (0.4-5.4); Lymphocytes % (auto) 31.7 % (10.0-50.0); Mean Corpuscular Hemoglobin 27.2 pg (28.0-32.0); Mean Corpuscular Hgb Conc. 32.7 g/dL (32.0-36.0); Mean Corpuscular Volume 83.1 fL (80.0-100.0); Monocytes # (auto) 1.9 10 ^3/uL (0-1.3); Monocytes % (auto) 13.4 % (0.0-12.0); Neutrophils # (auto) 7.4 10 ^3/uL (1.6-8.6); Neutrophils % (auto) 52.8 % (37.0-80.0); Nucleated Red Blood Cells % 0.1 %; Red Blood Cells 5.18 10^6/uL (4.0-5.20); Red Cell Distribution Width 13.9 % (11.8-14.3)
[2022-11-23 05:33] LABS: Alanine Aminotransferase 17 U/L (7-40); Albumin 4.3 g/dL (3.2-4.8); Alkaline Phosphatase 95 U/L (46-116); Anion Gap 8 (5-15); Aspartate Aminotransferase 18 U/L (13-40); BUN/Creatinine Ratio 11.3 (10.0-20.0); Bilirubin, Total 0.5 mg/dL (0.2-1.0); Blood Urea Nitrogen 12 mg/dL (9-23); Calcium 9.3 mg/dL (8.5-10.1); Carbon Dioxide 26 mmol/L (20-30); Chloride 105 mmol/L (98-107); Glucose 96 mg/dL (74-106); Potassium 3.2 mmol/L (3.5-5.1); Sodium 139 mmol/L (136-145); Total Protein 7.1 g/dL (5.7-8.2)
[2022-11-23] MEDS: HYDROcodone-ACET 5/325MG TAB PO PRN ×2 (06:33→21:58)
[2022-11-23 07:33] VITALS: PULSE 70; RESP 16; O2SAT 96
[2022-11-23] MEDS ORDERED: MORPHINE SULFATE 4 MG/ML SYR/VIAL ONE (08:42)
[2022-11-23] MEDS: METOPROLOL TARTRATE 25 MG TAB PO SCH ×2 (11:10→22:02)
[2022-11-23] MEDS: amLODIPine BESYLATE 5 MG TAB PO SCH (11:10)
[2022-11-23] MEDS: FAMOTIDINE (10MG/ML) 2ML VL IV SCH (11:10)
[2022-11-23] MEDS: ASPirin 81 mg TAB PO SCH (11:11)
[2022-11-23] MEDS ORDERED: SOD CHL 0.9%/ KCL 40MEQ 1,000 ML IV ONE (13:45)
[2022-11-23] MEDS: PIPERACILLIN-TAZOB 3.375GM 100 ML IV SCH ×2 (14:26→21:57)
[2022-11-23 16:43] LABS: Urine Bacteria FEW /hpf (None Seen); Urine Blood Negative /uL (Negative); Urine Clarity Clear (Clear); Urine Color Yellow (Yellow); Urine Protein, UAD Negative (Negative); Urine Specific Gravity 1.022 (1.001-1.035); Urine Urobilinogen Normal (Negative); Urine WBC 8 /hpf (0 - 5); Urine pH 6.5 (5.0-8.0)
[2022-11-23 16:47] VITALS: BP 144/74; PULSE 71; RESP 17; TEMP 98.7; O2SAT 97
[2022-11-23 20:00] VITALS: PULSE 63; PULSE 68; RESP 18
[2022-11-23] MEDS ORDERED: cefTRIAXone 1GM/50ML D5W 50 ML IV SCH (21:00)
[2022-11-23] MEDS: GABAPENTIN 300 MG CAP PO SCH (21:57)
[2022-11-23] MEDS: ATORVASTATIN 20 MG TAB PO SCH (21:57)
[2022-11-23] MEDS: traZODone HCL 50 MG TAB PO SCH (21:57)
[2022-11-23 22:00] VITALS: BP 129/68; PULSE 63; RESP 20; TEMP 98.1; O2SAT 95
[2022-11-24] VITALS (7 sets, daily range): BP systolic 118–142; BP diastolic 48–75; PULSE 60–73; RESP 16–19; TEMP 97.8–98.1; O2SAT 93–97
[2022-11-24 06:00] LABS: Basophils # (auto) 0.1 10 ^3/uL (0-0.2); Eosinophils # (auto) 0.3 10 ^3/uL (0-0.8); Lymphocytes # (auto) 3.1 10 ^3/uL (0.4-5.4); Monocytes # (auto) 1.1 10 ^3/uL (0-1.3); Monocytes % (auto) 12.3 % (0.0-12.0); White Blood Cell 8.8 10^3/uL (4.4-10.8)
[2022-11-24 06:02] LABS: Basophils % (auto) 0.8 % (0.0-2.0); Eosinophils % (auto) 3.2 % (0.0-7.0); Hematocrit 39.8 % (36.0-46.0); Lymphocytes % (auto) 34.8 % (10.0-50.0); Mean Corpuscular Hemoglobin 27.3 pg (28.0-32.0); Mean Corpuscular Hgb Conc. 32.8 g/dL (32.0-36.0); Mean Corpuscular Volume 83.4 fL (80.0-100.0); Neutrophils # (auto) 4.3 10 ^3/uL (1.6-8.6); Neutrophils % (auto) 48.9 % (37.0-80.0); Red Blood Cells 4.77 10^6/uL (4.0-5.20)
[2022-11-24] MEDS: PIPERACILLIN-TAZOB 3.375GM 100 ML IV SCH ×3 (06:10→21:47)
[2022-11-24 06:17] LABS: Alanine Aminotransferase 12 U/L (7-40); Albumin 3.8 g/dL (3.2-4.8); Alkaline Phosphatase 83 U/L (46-116); Anion Gap 7 (5-15); Aspartate Aminotransferase 13 U/L (13-40); BUN/Creatinine Ratio 12.3 (10.0-20.0); Bilirubin, Total 0.7 mg/dL (0.2-1.0); Blood Urea Nitrogen 13 mg/dL (9-23); Carbon Dioxide 27 mmol/L (20-30); Chloride 106 mmol/L (98-107); Glucose 94 mg/dL (74-106); Potassium 4.1 mmol/L (3.5-5.1); Sodium 140 mmol/L (136-145); Total Protein 5.7 g/dL (5.7-8.2)
[2022-11-24] MEDS: GABAPENTIN 300 MG CAP PO SCH ×2 (09:58→21:47)
[2022-11-24] MEDS: amLODIPine BESYLATE 5 MG TAB PO SCH (09:59)
[2022-11-24] MEDS: FAMOTIDINE (10MG/ML) 2ML VL IV SCH (10:00)
[2022-11-24] MEDS: METOPROLOL TARTRATE 25 MG TAB PO SCH ×2 (10:00→22:32)
[2022-11-24] MEDS: ASPirin 81 mg TAB PO SCH (10:00)
[2022-11-24] MEDS: clonazePAM 0.5 MG TAB PO SCH (21:47)
[2022-11-24] MEDS: CELECOXIB 100 MG CAP PO SCH (21:47)
[2022-11-24] MEDS: ATORVASTATIN 20 MG TAB PO SCH (21:47)
[2022-11-24] MEDS: QUEtiapine FUMARATE 100 MG TAB PO SCH (21:47)
[2022-11-24] MEDS: traZODone HCL 50 MG TAB PO SCH (21:47)
[2022-11-25] VITALS (7 sets, daily range): BP systolic 113–134; BP diastolic 59–76; PULSE 56–75; RESP 17–21; TEMP 97.6–98.2; O2SAT 94–97
[2022-11-25] MEDS: PIPERACILLIN-TAZOB 3.375GM 100 ML IV SCH ×3 (05:50→21:53)
[2022-11-25] MEDS: amLODIPine BESYLATE 5 MG TAB PO SCH (09:39)
[2022-11-25] MEDS: FAMOTIDINE (10MG/ML) 2ML VL IV SCH (09:40)
[2022-11-25] MEDS: METOPROLOL TARTRATE 25 MG TAB PO SCH ×2 (09:40→22:02)
[2022-11-25] MEDS: GABAPENTIN 300 MG CAP PO SCH ×2 (09:40→21:53)
[2022-11-25] MEDS: clonazePAM 0.5 MG TAB PO SCH ×2 (09:40→21:54)
[2022-11-25] MEDS: ASPirin 81 mg TAB PO SCH (09:40)
[2022-11-25] MEDS: CELECOXIB 100 MG CAP PO SCH ×2 (09:41→21:53)
[2022-11-25] MEDS: QUEtiapine FUMARATE 100 MG TAB PO SCH (21:53)
[2022-11-25] MEDS: ATORVASTATIN 20 MG TAB PO SCH (21:54)
[2022-11-25] MEDS: traZODone HCL 50 MG TAB PO SCH (21:54)
[2022-11-26] VITALS (7 sets, daily range): BP systolic 91–149; BP diastolic 47–68; PULSE 62–81; RESP 14–20; TEMP 97.5–97.9; O2SAT 92–98
[2022-11-26] MEDS: PIPERACILLIN-TAZOB 3.375GM 100 ML IV SCH ×3 (05:35→22:43)
[2022-11-26 06:03] LABS: Basophils # (auto) 0.1 10 ^3/uL (0-0.2); Basophils % (auto) 0.9 % (0.0-2.0); Eosinophils # (auto) 0.5 10 ^3/uL (0-0.8); Eosinophils % (auto) 5.5 % (0.0-7.0); Hematocrit 36.4 % (36.0-46.0); Lymphocytes # (auto) 2.9 10 ^3/uL (0.4-5.4); Lymphocytes % (auto) 30.5 % (10.0-50.0); Mean Corpuscular Hemoglobin 27.3 pg (28.0-32.0); Mean Corpuscular Volume 82.8 fL (80.0-100.0); Monocytes % (auto) 10.7 % (0.0-12.0); Neutrophils % (auto) 52.4 % (37.0-80.0); Red Blood Cells 4.39 10^6/uL (4.0-5.20); Red Cell Distribution Width 13.8 % (11.8-14.3); White Blood Cell 9.6 10^3/uL (4.4-10.8)
[2022-11-26 06:29] LABS: Anion Gap 6 (5-15); Carbon Dioxide 25 mmol/L (20-30); Chloride 111 mmol/L (98-107); Potassium 3.9 mmol/L (3.5-5.1); Sodium 142 mmol/L (136-145)
[2022-11-26 06:30] LABS: Calcium 9.1 mg/dL (8.7-10.4)
[2022-11-26 06:35] LABS: BUN/Creatinine Ratio 10.1 (10.0-20.0); Blood Urea Nitrogen 11 mg/dL (9-23); Glucose 108 mg/dL (74-106)
[2022-11-26] MEDS: FAMOTIDINE (10MG/ML) 2ML VL IV SCH (09:37)
[2022-11-26] MEDS: GABAPENTIN 300 MG CAP PO SCH ×2 (09:37→22:42)
[2022-11-26] MEDS: ASPirin 81 mg TAB PO SCH (09:37)
[2022-11-26] MEDS: clonazePAM 0.5 MG TAB PO SCH ×2 (09:38→22:43)
[2022-11-26] MEDS: HYDROcodone-ACET 5/325MG TAB PO PRN ×2 (09:40→22:44)
[2022-11-26] MEDS: METOPROLOL TARTRATE 25 MG TAB PO SCH ×2 (09:49→22:42)
[2022-11-26] MEDS: amLODIPine BESYLATE 5 MG TAB PO SCH (09:49)
[2022-11-26] MEDS: CELECOXIB 100 MG CAP PO SCH ×2 (11:07→22:43)
[2022-11-26] MEDS: CYCLOBENZAPRINE HCL 10 MG TAB PO PRN (18:26)
[2022-11-26] MEDS: QUEtiapine FUMARATE 100 MG TAB PO SCH (22:42)
[2022-11-26] MEDS: traZODone HCL 50 MG TAB PO SCH (22:43)
[2022-11-26] MEDS: ATORVASTATIN 20 MG TAB PO SCH (22:43)
[2022-11-27] VITALS (8 sets, daily range): BP systolic 115–156; BP diastolic 50–66; PULSE 58–81; RESP 15–22; TEMP 97.4–98.3; O2SAT 94–98
[2022-11-27] MEDS: PIPERACILLIN-TAZOB 3.375GM 100 ML IV SCH (05:19)
[2022-11-27] MEDS: LINEZOLID 600MG/300ML 300 ML IV SCH ×2 (08:43→21:58)
[2022-11-27] MEDS: ASPirin 81 mg TAB PO SCH (09:06)
[2022-11-27] MEDS: CELECOXIB 100 MG CAP PO SCH ×2 (09:07→21:59)
[2022-11-27] MEDS: clonazePAM 0.5 MG TAB PO SCH ×2 (09:07→21:58)
[2022-11-27] MEDS: GABAPENTIN 300 MG CAP PO SCH ×2 (09:07→21:59)
[2022-11-27] MEDS: FAMOTIDINE (10MG/ML) 2ML VL IV SCH (09:07)
[2022-11-27] MEDS: METOPROLOL TARTRATE 25 MG TAB PO SCH ×2 (09:08→22:00)
[2022-11-27] MEDS: amLODIPine BESYLATE 5 MG TAB PO SCH (09:08)
[2022-11-27] MEDS: HYDROcodone-ACET 5/325MG TAB PO PRN ×2 (15:22→21:59)
[2022-11-27] MEDS: QUEtiapine FUMARATE 100 MG TAB PO SCH (21:58)
[2022-11-27] MEDS: traZODone HCL 50 MG TAB PO SCH (21:58)
[2022-11-27] MEDS: ATORVASTATIN 20 MG TAB PO SCH (21:59)
[2022-11-28] VITALS (7 sets, daily range): BP systolic 139–155; BP diastolic 55–82; PULSE 62–97; RESP 14–17; TEMP 97.6–98.4; O2SAT 95–98
[2022-11-28] MEDS: LINEZOLID 600MG/300ML 300 ML IV SCH ×2 (08:50→18:21)
[2022-11-28] MEDS: FAMOTIDINE (10MG/ML) 2ML VL IV SCH (08:50)
[2022-11-28] MEDS: ASPirin 81 mg TAB PO SCH (08:50)
[2022-11-28] MEDS: clonazePAM 0.5 MG TAB PO SCH ×2 (08:51→22:01)
[2022-11-28] MEDS: GABAPENTIN 300 MG CAP PO SCH ×2 (08:51→22:02)
[2022-11-28] MEDS: amLODIPine BESYLATE 5 MG TAB PO SCH (08:51)
[2022-11-28] MEDS: CELECOXIB 100 MG CAP PO SCH ×2 (08:52→22:01)
[2022-11-28] MEDS: METOPROLOL TARTRATE 25 MG TAB PO SCH ×2 (08:52→22:02)
[2022-11-28] MEDS: CYCLOBENZAPRINE HCL 10 MG TAB PO PRN (09:09)
[2022-11-28] MEDS: HYDROcodone-ACET 5/325MG TAB PO PRN (09:10)
[2022-11-28] MEDS: QUEtiapine FUMARATE 100 MG TAB PO SCH (22:02)
[2022-11-28] MEDS: ATORVASTATIN 20 MG TAB PO SCH (22:02)
[2022-11-28] MEDS: traZODone HCL 50 MG TAB PO SCH (22:55)
[2022-11-29] VITALS (7 sets, daily range): BP systolic 132–154; BP diastolic 55–70; PULSE 61–71; RESP 11–17; TEMP 97.8–98; O2SAT 94–98
[2022-11-29] MEDS: LINEZOLID 600MG/300ML 300 ML IV SCH ×2 (06:36→18:57)
[2022-11-29] MEDS: ASPirin 81 mg TAB PO SCH (09:25)
[2022-11-29] MEDS: FAMOTIDINE (10MG/ML) 2ML VL IV SCH (09:25)
[2022-11-29] MEDS: clonazePAM 0.5 MG TAB PO SCH ×2 (09:26→23:39)
[2022-11-29] MEDS: CELECOXIB 100 MG CAP PO SCH ×2 (09:26→22:36)
[2022-11-29] MEDS: amLODIPine BESYLATE 5 MG TAB PO SCH (09:27)
[2022-11-29] MEDS: GABAPENTIN 300 MG CAP PO SCH ×2 (09:28→22:38)
[2022-11-29] MEDS: METOPROLOL TARTRATE 25 MG TAB PO SCH ×2 (09:28→22:38)
[2022-11-29] MEDS: HYDROcodone-ACET 5/325MG TAB PO PRN ×2 (09:29→22:37)
[2022-11-29] MEDS: ATORVASTATIN 20 MG TAB PO SCH (22:36)
[2022-11-29] MEDS ORDERED: LOPERAMIDE HCL 2 MG CAP/TAB PO PRN (23:00)
[2022-11-29] MEDS: QUEtiapine FUMARATE 100 MG TAB PO SCH (23:38)
[2022-11-30] VITALS (7 sets, daily range): BP systolic 114–166; BP diastolic 57–89; PULSE 66–72; RESP 17–19; TEMP 97.9–98.5; O2SAT 93–98
[2022-11-30] MEDS: traZODone HCL 50 MG TAB PO SCH (00:43)
[2022-11-30] MEDS: LINEZOLID 600MG/300ML 300 ML IV SCH ×2 (06:10→18:05)
[2022-11-30] MEDS: GABAPENTIN 300 MG CAP PO SCH (09:16)
[2022-11-30] MEDS: FAMOTIDINE (10MG/ML) 2ML VL IV SCH (09:16)
[2022-11-30] MEDS: METOPROLOL TARTRATE 25 MG TAB PO SCH (09:18)
[2022-11-30] MEDS: amLODIPine BESYLATE 5 MG TAB PO SCH (09:18)
[2022-11-30] MEDS: clonazePAM 0.5 MG TAB PO SCH (09:19)
[2022-11-30] MEDS: CELECOXIB 100 MG CAP PO SCH (09:19)
[2022-11-30] MEDS: ASPirin 81 mg TAB PO SCH (09:19)
[2022-11-30] MEDS: HYDROcodone-ACET 5/325MG TAB PO PRN (15:11)
[2022-12-01] VITALS (7 sets, daily range): BP systolic 119–161; BP diastolic 66–79; PULSE 60–80; RESP 16–18; TEMP 97.8–98.5; O2SAT 94–97
[2022-12-01] MEDS: HYDROcodone-ACET 5/325MG TAB PO PRN ×2 (00:17→21:43)
[2022-12-01] MEDS: QUEtiapine FUMARATE 100 MG TAB PO SCH ×2 (00:18→21:43)
[2022-12-01] MEDS: ATORVASTATIN 20 MG TAB PO SCH ×2 (00:18→21:43)
[2022-12-01] MEDS: GABAPENTIN 300 MG CAP PO SCH ×4 (00:18→21:42)
[2022-12-01] MEDS: clonazePAM 0.5 MG TAB PO SCH ×3 (00:18→21:42)
[2022-12-01] MEDS: METOPROLOL TARTRATE 25 MG TAB PO SCH ×3 (00:19→21:44)
[2022-12-01] MEDS: CELECOXIB 100 MG CAP PO SCH ×2 (00:24→08:56)
[2022-12-01] MEDS: traZODone HCL 50 MG TAB PO SCH ×2 (01:20→21:42)
[2022-12-01] MEDS: LINEZOLID 600MG/300ML 300 ML IV SCH ×2 (06:45→19:59)
[2022-12-01] MEDS: ASPirin 81 mg TAB PO SCH (08:57)
[2022-12-01] MEDS: amLODIPine BESYLATE 5 MG TAB PO SCH (08:57)
[2022-12-01] MEDS: FAMOTIDINE (10MG/ML) 2ML VL IV SCH (08:57)
[2022-12-01 14:47] LABS: Urine Bacteria NONE SEEN /hpf (None Seen); Urine Blood 1+ /uL (Negative); Urine Clarity Clear (Clear); Urine Color Colorless (Yellow); Urine Protein, UAD Negative (Negative); Urine Specific Gravity 1.006 (1.001-1.035); Urine Urobilinogen Normal (Negative); Urine WBC 4 /hpf (0 - 5)
[2022-12-02 05:00] VITALS: BP 122/54; PULSE 62; RESP 16; TEMP 98.3; O2SAT 93
[2022-12-02] MEDS: GABAPENTIN 300 MG CAP PO SCH ×3 (06:16→21:37)
[2022-12-02] MEDS: LINEZOLID 600MG/300ML 300 ML IV SCH ×2 (07:56→19:42)
[2022-12-02 08:00] VITALS: PULSE 75; RESP 18; O2SAT 96
[2022-12-02 09:00] VITALS: BP 115/67; PULSE 75; RESP 18; TEMP 98.3; O2SAT 96
[2022-12-02] MEDS: clonazePAM 0.5 MG TAB PO SCH ×2 (09:52→21:37)
[2022-12-02] MEDS: ASPirin 81 mg TAB PO SCH (09:52)
[2022-12-02] MEDS: FAMOTIDINE (10MG/ML) 2ML VL IV SCH (09:52)
[2022-12-02] MEDS: HYDROcodone-ACET 5/325MG TAB PO PRN ×2 (09:52→17:25)
[2022-12-02] MEDS: amLODIPine BESYLATE 5 MG TAB PO SCH (09:53)
[2022-12-02] MEDS: METOPROLOL TARTRATE 25 MG TAB PO SCH ×2 (09:53→21:38)
[2022-12-02 13:00] VITALS: BP 109/62; PULSE 62; RESP 20; TEMP 98.2; O2SAT 94
[2022-12-02 16:54] VITALS: BP 128/67; PULSE 67; RESP 18; TEMP 79; O2SAT 95
[2022-12-02] MEDS: traZODone HCL 50 MG TAB PO SCH (21:37)
[2022-12-02] MEDS: ATORVASTATIN 20 MG TAB PO SCH (21:37)
[2022-12-02] MEDS: QUEtiapine FUMARATE 100 MG TAB PO SCH (21:37)
[2022-12-02 22:00] VITALS: BP 143/79; PULSE 69; RESP 20; TEMP 98.4; O2SAT 94
[2022-12-03] MEDS: GABAPENTIN 300 MG CAP PO SCH ×3 (06:00→22:07)
[2022-12-03] MEDS: LINEZOLID 600MG/300ML 300 ML IV SCH ×2 (07:30→20:52)
[2022-12-03 08:00] VITALS: BP 132/65; PULSE 64; RESP 18; TEMP 98.1; O2SAT 93
[2022-12-03] MEDS: FAMOTIDINE (10MG/ML) 2ML VL IV SCH (10:00)
[2022-12-03] MEDS: amLODIPine BESYLATE 5 MG TAB PO SCH (10:00)
[2022-12-03] MEDS: ASPirin 81 mg TAB PO SCH (10:00)
[2022-12-03] MEDS: METOPROLOL TARTRATE 25 MG TAB PO SCH ×2 (10:00→22:08)
[2022-12-03] MEDS: clonazePAM 0.5 MG TAB PO SCH ×2 (10:00→22:07)
[2022-12-03 12:00] VITALS: BP 155/78; PULSE 65; RESP 18; TEMP 98.9; O2SAT 99
[2022-12-03 16:00] VITALS: BP 152/64; PULSE 65; RESP 18; TEMP 98.2; O2SAT 94
[2022-12-03] MEDS: HYDROcodone-ACET 5/325MG TAB PO PRN (18:32)
[2022-12-03 22:00] VITALS: BP 141/75; PULSE 70; RESP 18; TEMP 98.4; O2SAT 94
[2022-12-03] MEDS: ATORVASTATIN 20 MG TAB PO SCH (22:07)
[2022-12-03] MEDS: QUEtiapine FUMARATE 100 MG TAB PO SCH (22:07)
[2022-12-03] MEDS: traZODone HCL 50 MG TAB PO SCH (22:07)
[2022-12-04 05:00] VITALS: BP 137/73; PULSE 61; RESP 16; TEMP 98.1; O2SAT 94
[2022-12-04] MEDS: GABAPENTIN 300 MG CAP PO SCH ×2 (06:33→14:41)
[2022-12-04 08:00] VITALS: BP 140/62; PULSE 64; RESP 18; TEMP 97.9; O2SAT 92
[2022-12-04] MEDS: LINEZOLID 600MG/300ML 300 ML IV SCH ×2 (08:06→19:30)
[2022-12-04] MEDS: HYDROcodone-ACET 5/325MG TAB PO PRN ×3 (08:12→20:08)
[2022-12-04] MEDS: ASPirin 81 mg TAB PO SCH (10:28)
[2022-12-04] MEDS: clonazePAM 0.5 MG TAB PO SCH (10:28)
[2022-12-04] MEDS: FAMOTIDINE (10MG/ML) 2ML VL IV SCH (10:29)
[2022-12-04] MEDS: METOPROLOL TARTRATE 25 MG TAB PO SCH (10:29)
[2022-12-04] MEDS: amLODIPine BESYLATE 5 MG TAB PO SCH (10:29)
[2022-12-04 12:00] VITALS: BP 134/71; PULSE 59; RESP 18; TEMP 97.9; O2SAT 96
[2022-12-04 16:00] VITALS: BP 140/62; PULSE 61; RESP 18; TEMP 98; O2SAT 97
[2022-12-04 18:29] VITALS: BP 140/62; PULSE 61; RESP 18; TEMP 98; O2SAT 97
== END 2022-12-04 20:48 | DRG 871 ==
LOC: ER 18:29 → EDBD 18:29 → TELE 11-23 01:09 → TELE-EAST 11-23 16:16 → EAST 12-01 10:06
PROVIDERS: ADMIT Nurse Practitioner Family; ATTEND Nurse Practitioner Acute Care
DX: A41.81 Sepsis due to Enterococcus (principal); I50.33 Acute on chronic diastolic (congestive) heart failure; N17.0 Acute kidney failure with tubular necrosis; N39.0 Urinary tract infection, site not specified; I11.0 Hypertensive heart disease with heart failure; G89.4 Chronic pain syndrome; F31.9 Bipolar disorder, unspecified; M51.16 Intervertebral disc disorders with radiculopathy, lumbar region; E86.0 Dehydration; E11.9 Type 2 diabetes mellitus without complications; E78.5 Hyperlipidemia, unspecified; F41.9 Anxiety disorder, unspecified; Z79.899 Other long term (current) drug therapy; Z81.8 Family history of other mental and behavioral disorders; Z82.49 Family history of ischemic heart disease and other diseases of the circulatory system; Z86.73 Personal history of transient ischemic attack (TIA), and cerebral infarction without residual deficits; Z91.81 History of falling
CPT/HCPCS: 36415; 71045; 72148; 80048; 80053; 80307; 81001; 83735; 83880; 84484; 85025; 85610; 85730; 87040; 87077; 87081; 87086; 87088; 87186; 93005; 96365; 96375; 96376; 97110; 97116; 97163; 97530; G0378; J0696; J2405; J2543; J3490

== ENCOUNTER 2022-12-29 13:26 | Emergency (ER) | payer OTHER ==
[~2022-12-29] VITALS: Ht 162.6 cm; Wt 85.1 kg
[2022-12-29] MEDS ORDERED: SODIUM BICARBONATE 8.4% INJ 50ML SYRINGE IV ONE (13:27)
[2022-12-29] MEDS ORDERED: EPINEPHrine HCL 1 MG/10 ML SYRG IV ONE (13:27)
[2022-12-29] MEDS ORDERED: AMIODARONE HCL (50 MG/ ML) 3 ML VIAL IV ONE (13:27)
[2022-12-29] MEDS ORDERED: CALCIUM CHLOR(10%) 100MG/ML 10ML SYRINGE IV ONE (13:27)
[2022-12-29] MEDS ORDERED: DEXTROSE 10% 250 ML Bag IV ONE (13:27)
[2022-12-29 19:41] LABS: Urine Bacteria NONE SEEN /hpf (None Seen); Urine Blood Negative /uL (Negative); Urine Clarity Clear (Clear); Urine Color Colorless (Yellow); Urine Hyaline Cast FEW /lpf (0 - 2); Urine Protein, UAD Negative (Negative); Urine Specific Gravity 1.017 (1.001-1.035); Urine Urobilinogen Normal (Negative); Urine WBC 1 /hpf (0 - 5); Urine pH 5.5 (5.0-8.0)
[2022-12-29] MEDS ORDERED: HYDR-4798 PO (21:44)
[2022-12-29] MEDS ORDERED: MORPHINE SULFATE INJ 2 MG/ml SYRG IM ONE (21:45)
[2022-12-29] MEDS ORDERED: ONDANSETRON ODT 4 MG TAB PO ONE (21:45)
[2022-12-29] MEDS ORDERED: CEPH500C PO (21:46)
[2022-12-29 23:02] VITALS: BP 117/64; PULSE 85; RESP 18; TEMP 97.8; O2SAT 97
== END 2022-12-30 05:49 | disposition home or self-care (01) ==
LOC: ER 13:26
DX: M54.50 Low back pain, unspecified (principal); G89.29 Other chronic pain; N39.0 Urinary tract infection, site not specified; I12.9 Hypertensive chronic kidney disease with stage 1 through stage 4 chronic kidney disease, or unspecified chronic kidney disease; E11.22 Type 2 diabetes mellitus with diabetic chronic kidney disease; N18.9 Chronic kidney disease, unspecified; E78.5 Hyperlipidemia, unspecified; Z86.73 Personal history of transient ischemic attack (TIA), and cerebral infarction without residual deficits; Z90.49 Acquired absence of other specified parts of digestive tract; Z79.1 Long term (current) use of non-steroidal anti-inflammatories (NSAID); Z79.82 Long term (current) use of aspirin; Z79.899 Other long term (current) drug therapy
CPT/HCPCS: 72131; 72192; 81001; 82962; 96372; 99285; J0171; J0282; J2270; Q0162

== ENCOUNTER 2023-01-01 14:01 | Emergency (ER) | payer OTHER ==
[~2023-01-01] VITALS: Ht 154.9 cm; Wt 81.4 kg
[~2023-01-01 14:01] MED LIST changes: +CEPH500C PO; +HYDR-4798 PO
[2023-01-01 14:16] VITALS: BP 138/62; PULSE 76; RESP 16; O2SAT 96
[2023-01-01] MEDS ORDERED: PERCOT PO (14:31)
== END 2023-01-01 14:52 | disposition home or self-care (01) ==
LOC: ER 14:01
DX: S32.009A Unspecified fracture of unspecified lumbar vertebra, initial encounter for closed fracture (principal); E11.22 Type 2 diabetes mellitus with diabetic chronic kidney disease; I12.9 Hypertensive chronic kidney disease with stage 1 through stage 4 chronic kidney disease, or unspecified chronic kidney disease; N18.9 Chronic kidney disease, unspecified; E78.5 Hyperlipidemia, unspecified; Z90.49 Acquired absence of other specified parts of digestive tract; Z86.73 Personal history of transient ischemic attack (TIA), and cerebral infarction without residual deficits; Z87.440 Personal history of urinary (tract) infections; X58.XXXA Exposure to other specified factors, initial encounter; Y93.89 Activity, other specified; Y92.89 Other specified places as the place of occurrence of the external cause; Y99.8 Other external cause status

== ENCOUNTER → 2023-01-07 | Outpatient (CLI) | payer OTHER ==
[~2023-01-07] MED LIST changes: +PERCOT PO
[2023-01-07 10:19] LABS: Basophils # (auto) 0.1 10 ^3/uL (0-0.2); Basophils % (auto) 1.6 % (0.0-2.0); Eosinophils # (auto) 0.4 10 ^3/uL (0-0.8); Eosinophils % (auto) 5.7 % (0.0-7.0); Hematocrit 39.2 % (36.0-46.0); Hemoglobin 12.8 g/dL (12.2-16.2); Lymphocytes # (auto) 1.9 10 ^3/uL (0.4-5.4); Mean Corpuscular Hemoglobin 26.9 pg (28.0-32.0); Mean Corpuscular Hgb Conc. 32.5 g/dL (32.0-36.0); Mean Corpuscular Volume 82.9 fL (80.0-100.0); Monocytes # (auto) 0.7 10 ^3/uL (0-1.3); Monocytes % (auto) 11.1 % (0.0-12.0); Neutrophils # (auto) 3.3 10 ^3/uL (1.6-8.6); Neutrophils % (auto) 51.6 % (37.0-80.0); Nucleated Red Blood Cells % 0.1 %; Red Blood Cells 4.73 10^6/uL (4.0-5.20); Red Cell Distribution Width 14.7 % (11.8-14.3); White Blood Cell 6.3 10^3/uL (4.4-10.8)
[2023-01-07 10:42] LABS: Urine Bacteria FEW /hpf (None Seen); Urine Blood Negative /uL (Negative); Urine Clarity Clear (Clear); Urine Color Yellow (Yellow); Urine Protein, UAD Negative (Negative); Urine Specific Gravity 1.011 (1.001-1.035); Urine Urobilinogen Normal (Negative); Urine WBC 5 /hpf (0 - 5); Urine pH 6.5 (5.0-8.0)
[2023-01-07 11:34] LABS: Alanine Aminotransferase 20 U/L (7-40); Alkaline Phosphatase 106 U/L (46-116); Anion Gap 7 (5-15); Aspartate Aminotransferase 22 U/L (13-40); Blood Urea Nitrogen 13 mg/dL (9-23); Calcium 9.6 mg/dL (8.5-10.1); Carbon Dioxide 29 mmol/L (20-30); Chloride 104 mmol/L (98-107); Glucose 100 mg/dL (74-106); LDL Cholesterol 58 mg/dL (< 100); Potassium 3.5 mmol/L (3.5-5.1); Sodium 140 mmol/L (136-145); Triglycerides 184 mg/dL (< 150)
[2023-01-07 11:35] LABS: Albumin 4.4 g/dL (3.2-4.8); Cholesterol 120 mg/dL (< 200); HDL Cholesterol 31 mg/dL (40-59)
[2023-01-07 11:36] LABS: Bilirubin, Total 0.5 mg/dL (0.2-1.0); Total Protein 7.1 g/dL (5.7-8.2)
== END | disposition home or self-care (01) ==
LOC: LAB 09:59
PROVIDERS: ATTEND Student in an Organized Health Care Education/Training Program
DX: N39.0 Urinary tract infection, site not specified (principal); E11.9 Type 2 diabetes mellitus without complications
CPT/HCPCS: 36415; 80053; 80061; 81001; 83036; 84443; 85025; 87086; 87088; 87186

== ENCOUNTER 2023-03-05 17:30 | Emergency (ER) | payer OTHER ==
[~2023-03-05] VITALS: Ht 162.6 cm; Wt 79.0 kg
[~2023-03-05 17:30] MED LIST changes: +BACDST PO; +LIDO5PAD8 EX; +PHEN-1044 PO
[2023-03-05] MEDS ORDERED: CLOT-32 TOP (20:30)
[2023-03-05 20:50] LABS: Urine Bacteria NONE SEEN /hpf (None Seen); Urine Blood Negative /uL (Negative); Urine Clarity Clear (Clear); Urine Protein, UAD Negative (Negative); Urine Specific Gravity 1.013 (1.001-1.035); Urine Urobilinogen Normal (Negative); Urine WBC 2 /hpf (0 - 5); Urine pH 6.5 (5.0-8.0)
[2023-03-05 20:51] VITALS: BP 112/81; RESP 18; TEMP 98.2
[2023-03-05 20:52] VITALS: PULSE 84; O2SAT 99
[2023-03-05 20:53] LABS: Urine Color STRAW (Yellow)
[2023-03-05] MEDS ORDERED: PERCOT PO (21:19)
== END 2023-03-05 21:34 | disposition home or self-care (01) ==
LOC: ER 17:30
DX: B37.31 Acute candidiasis of vulva and vagina (principal); G89.29 Other chronic pain; M54.9 Dorsalgia, unspecified; E11.22 Type 2 diabetes mellitus with diabetic chronic kidney disease; I12.9 Hypertensive chronic kidney disease with stage 1 through stage 4 chronic kidney disease, or unspecified chronic kidney disease; N18.9 Chronic kidney disease, unspecified; E78.5 Hyperlipidemia, unspecified; Z90.49 Acquired absence of other specified parts of digestive tract; Z86.73 Personal history of transient ischemic attack (TIA), and cerebral infarction without residual deficits
CPT/HCPCS: 81001

== ENCOUNTER 2023-03-10 14:44 | Emergency (ER) | payer OTHER ==
[~2023-03-10] VITALS: Ht 162.6 cm; Wt 74.0 kg
[~2023-03-10 14:44] MED LIST changes: +CLOT-32 TOP
[2023-03-10] MEDS ORDERED: HYDROcodone-ACET 10/325MG TAB PO ONE (15:15)
[2023-03-10 15:49] LABS: Basophils # (auto) 0.1 10 ^3/uL (0-0.2); Basophils % (auto) 1.1 % (0.0-2.0); Eosinophils # (auto) 0.2 10 ^3/uL (0-0.8); Eosinophils % (auto) 1.8 % (0.0-7.0); Hematocrit 46.6 % (36.0-46.0); Hemoglobin 15.3 g/dL (12.2-16.2); Lymphocytes # (auto) 1.5 10 ^3/uL (0.4-5.4); Lymphocytes % (auto) 16.2 % (10.0-50.0); Mean Corpuscular Hemoglobin 26.6 pg (28.0-32.0); Mean Corpuscular Hgb Conc. 32.9 g/dL (32.0-36.0); Mean Corpuscular Volume 80.9 fL (80.0-100.0); Monocytes % (auto) 10.2 % (0.0-12.0); Neutrophils # (auto) 6.8 10 ^3/uL (1.6-8.6); Neutrophils % (auto) 70.7 % (37.0-80.0); Red Blood Cells 5.75 10^6/uL (4.0-5.20); White Blood Cell 9.6 10^3/uL (4.4-10.8)
[2023-03-10 16:05] LABS: Alanine Aminotransferase 19 U/L (7-40); Albumin 4.9 g/dL (3.2-4.8); Alkaline Phosphatase 136 U/L (46-116); Anion Gap 9 (5-15); Aspartate Aminotransferase 19 U/L (13-40); BUN/Creatinine Ratio 19.6 (10.0-20.0); Blood Urea Nitrogen 20 mg/dL (9-23); Calcium 10.6 mg/dL (8.5-10.1); Carbon Dioxide 26 mmol/L (20-30); Chloride 103 mmol/L (98-107); Glucose 108 mg/dL (74-106); Potassium 3.7 mmol/L (3.5-5.1); Sodium 138 mmol/L (136-145)
[2023-03-10 16:06] LABS: Bilirubin, Total 0.7 mg/dL (0.2-1.0); Total Protein 7.7 g/dL (5.7-8.2)
[2023-03-10 16:42] LABS: Urine Bacteria NONE SEEN /hpf (None Seen); Urine Blood Negative /uL (Negative); Urine Clarity Clear (Clear); Urine Color Yellow (Yellow); Urine Hyaline Cast FEW /lpf (0 - 2); Urine Mucus FEW (None Seen); Urine Protein, UAD TRACE (Negative); Urine Specific Gravity 1.025 (1.001-1.035); Urine Urobilinogen Normal (Negative); Urine WBC 1 /hpf (0 - 5); Urine pH 5.5 (5.0-8.0)
[2023-03-10 17:38] VITALS: BP 151/86; PULSE 83; RESP 16; TEMP 97.8; O2SAT 96
== END 2023-03-10 17:40 | disposition home or self-care (01) ==
LOC: ER 14:44
DX: R07.89 Other chest pain (principal); F41.9 Anxiety disorder, unspecified; I12.9 Hypertensive chronic kidney disease with stage 1 through stage 4 chronic kidney disease, or unspecified chronic kidney disease; E11.22 Type 2 diabetes mellitus with diabetic chronic kidney disease; N18.9 Chronic kidney disease, unspecified; E78.5 Hyperlipidemia, unspecified; Z86.73 Personal history of transient ischemic attack (TIA), and cerebral infarction without residual deficits; Z90.49 Acquired absence of other specified parts of digestive tract; Z79.82 Long term (current) use of aspirin; Z79.1 Long term (current) use of non-steroidal anti-inflammatories (NSAID); Z79.899 Other long term (current) drug therapy
CPT/HCPCS: 36415; 71250; 80053; 81001; 84484; 85025; 93005

== ENCOUNTER → 2023-03-22 | Outpatient (CLI) | payer OTHER ==
[2023-03-22 08:55] LABS: Basophils # (auto) 0.1 10 ^3/uL (0-0.2); Basophils % (auto) 0.9 % (0.0-2.0); Eosinophils # (auto) 0.3 10 ^3/uL (0-0.8); Eosinophils % (auto) 3.8 % (0.0-7.0); Hematocrit 40.5 % (36.0-46.0); Lymphocytes # (auto) 2.5 10 ^3/uL (0.4-5.4); Lymphocytes % (auto) 37.4 % (10.0-50.0); Mean Corpuscular Hemoglobin 26.4 pg (28.0-32.0); Mean Corpuscular Hgb Conc. 32.2 g/dL (32.0-36.0); Monocytes # (auto) 0.8 10 ^3/uL (0-1.3); Monocytes % (auto) 11.1 % (0.0-12.0); Neutrophils # (auto) 3.2 10 ^3/uL (1.6-8.6); Neutrophils % (auto) 46.8 % (37.0-80.0); Nucleated Red Blood Cells % 0.1 %; Red Blood Cells 4.94 10^6/uL (4.0-5.20); Red Cell Distribution Width 14.9 % (11.8-14.3); White Blood Cell 6.7 10^3/uL (4.4-10.8)
[2023-03-22 09:21] LABS: Alanine Aminotransferase 18 U/L (7-40); Albumin 4.2 g/dL (3.2-4.8); Alkaline Phosphatase 108 U/L (46-116); Anion Gap 6 (5-15); Aspartate Aminotransferase 22 U/L (13-40); BUN/Creatinine Ratio 8.3 (10.0-20.0); Blood Urea Nitrogen 8 mg/dL (9-23); Calcium 9.8 mg/dL (8.5-10.1); Carbon Dioxide 24 mmol/L (20-30); Chloride 112 mmol/L (98-107); Glucose 102 mg/dL (74-106); LDL Cholesterol 81 mg/dL (< 100); Potassium 4.1 mmol/L (3.5-5.1); Sodium 142 mmol/L (136-145); Triglycerides 100 mg/dL (< 150)
[2023-03-22 09:22] LABS: Bilirubin, Total 0.3 mg/dL (0.2-1.0); Cholesterol 139 mg/dL (< 200); HDL Cholesterol 43 mg/dL (40-59); Total Protein 6.8 g/dL (5.7-8.2)
[2023-03-22 14:58] LABS: Urine Bacteria NONE SEEN /hpf (None Seen); Urine Blood Negative /uL (Negative); Urine Clarity Clear (Clear); Urine Color Yellow (Yellow); Urine Hyaline Cast FEW /lpf (0 - 2); Urine Protein, UAD Negative (Negative); Urine Specific Gravity 1.017 (1.001-1.035); Urine Urobilinogen Normal (Negative); Urine WBC 4 /hpf (0 - 5)
== END | disposition home or self-care (01) ==
LOC: LAB 08:31
DX: N18.2 Chronic kidney disease, stage 2 (mild) (principal); E03.9 Hypothyroidism, unspecified; E55.9 Vitamin D deficiency, unspecified; E78.5 Hyperlipidemia, unspecified; R73.03 Prediabetes
CPT/HCPCS: 36415; 80053; 80061; 81001; 83036; 84439; 84443; 85025

== ENCOUNTER → 2023-07-01 | Outpatient (CLI) | payer OTHER ==
[~2023-07-01] MED LIST changes: -CAR3125T PO; +CARV-214 PO; +LIDO5PAD12 EX; -LIDO5PAD8 EX; +LOSA-534 PO; -LOSA50TA46 PO; -SUCR1TAB22 OR; +SUCR1TAB31 OR
[2023-07-01 07:10] LABS: Urine Bacteria None Seen /hpf (None Seen)
[2023-07-01 07:35] LABS: Basophils # (auto) 0.1 10 ^3/uL (0-0.2); Basophils % (auto) 0.7 % (0.0-2.0); Eosinophils # (auto) 0.5 10 ^3/uL (0-0.8); Eosinophils % (auto) 5.9 % (0.0-7.0); Hematocrit 42.1 % (36.0-46.0); Hemoglobin 13.3 g/dL (12.2-16.2); Lymphocytes # (auto) 2.7 10 ^3/uL (0.4-5.4); Lymphocytes % (auto) 34.4 % (10.0-50.0); Mean Corpuscular Hemoglobin 26.8 pg (28.0-32.0); Mean Corpuscular Hgb Conc. 31.7 g/dL (32.0-36.0); Mean Corpuscular Volume 84.7 fL (80.0-100.0); Monocytes # (auto) 0.8 10 ^3/uL (0-1.3); Monocytes % (auto) 9.9 % (0.0-12.0); Neutrophils # (auto) 3.8 10 ^3/uL (1.6-8.6); Neutrophils % (auto) 49.1 % (37.0-80.0); Nucleated Red Blood Cells % 0.2 %; Red Blood Cells 4.97 10^6/uL (4.0-5.20); Red Cell Distribution Width 16.4 % (11.8-14.3); White Blood Cell 7.8 10^3/uL (4.4-10.8)
[2023-07-01 07:39] LABS: Urine Blood Negative /uL (Negative); Urine Budding Yeast OCCASIONAL /hpf (None Seen); Urine Clarity Clear (Clear); Urine Color Light-Yellow (Yellow); Urine Protein, UAD Negative (Negative); Urine Specific Gravity 1.021 (1.001-1.035); Urine Urobilinogen Normal (Negative); Urine WBC 1 /hpf (0 - 5); Urine pH 6.5 (5.0-9.0)
[2023-07-01 07:56] LABS: Large Platelets FEW; Platelet Estimate Adequate
[2023-07-01 08:53] LABS: Alanine Aminotransferase 15 U/L (7-40); Albumin 4.3 g/dL (3.2-4.8); Alkaline Phosphatase 90 U/L (46-116); Anion Gap 8 (5-15); Aspartate Aminotransferase 24 U/L (13-40); Blood Urea Nitrogen 26 mg/dL (9-23); Calcium 9.9 mg/dL (8.5-10.1); Carbon Dioxide 26 mmol/L (20-30); Chloride 106 mmol/L (98-107); Cholesterol 137 mg/dL (< 200); Glucose 92 mg/dL (74-106); HDL Cholesterol 48 mg/dL (40-59); LDL Cholesterol 77 mg/dL (< 100); Potassium 4.5 mmol/L (3.5-5.1); Sodium 140 mmol/L (136-145); Triglycerides 71 mg/dL (< 150)
[2023-07-01 08:54] LABS: Bilirubin, Total 0.3 mg/dL (0.2-1.0); Total Protein 6.7 g/dL (5.7-8.2)
== END | disposition home or self-care (01) ==
LOC: LAB 06:51
DX: I10 Essential (primary) hypertension (principal); E78.5 Hyperlipidemia, unspecified; E55.9 Vitamin D deficiency, unspecified; N39.0 Urinary tract infection, site not specified; Z79.899 Other long term (current) drug therapy
CPT/HCPCS: 36415; 80053; 80061; 81001; 82306; 83036; 84443; 85025; 87086

== ENCOUNTER → 2024-02-22 | Outpatient (CLI) | payer OTHER, MEDICAID ==
[2024-02-22 10:58] LABS: Alanine Aminotransferase 10 U/L (7-40); Albumin 3.9 g/dL (3.2-4.8); Alkaline Phosphatase 98 U/L (46-116); Anion Gap 6 (5-15); Aspartate Aminotransferase 19 U/L (13-40); BUN/Creatinine Ratio 9.2 (10.0-20.0); Basophils # (auto) 0.1 10 ^3/uL (0-0.2); Calcium 9.2 mg/dL (8.7-10.4); Carbon Dioxide 25 mmol/L (20-31); Cholesterol 131 mg/dL (< 200); Eosinophils # (auto) 0.4 10 ^3/uL (0-0.8); Eosinophils % (auto) 5.3 % (0.0-7.0); Glucose 100 mg/dL (74-106); LDL Cholesterol 70 mg/dL (< 100); Mean Corpuscular Volume 82.2 fL (80.0-100.0); Monocytes # (auto) 0.6 10 ^3/uL (0-1.3); Neutrophils # (auto) 4.1 10 ^3/uL (1.6-8.6); Potassium 4.1 mmol/L (3.5-5.1); Sodium 142 mmol/L (136-145)
[2024-02-22 10:59] LABS: Bilirubin, Total 0.4 mg/dL (0.2-1.0); Total Protein 6.6 g/dL (5.7-8.2)
[2024-02-22 11:02] LABS: Basophils % (auto) 0.8 % (0.0-2.0); Hematocrit 39.3 % (36.0-46.0); Hemoglobin 12.9 g/dL (12.2-16.2); Lymphocytes # (auto) 1.7 10 ^3/uL (0.4-5.4); Lymphocytes % (auto) 24.6 % (10.0-50.0); Mean Corpuscular Hgb Conc. 32.8 g/dL (32.0-36.0); Monocytes % (auto) 8.3 % (0.0-12.0); Platelet Count (auto) 263 10^3/uL (140-450); Red Blood Cells 4.78 10^6/uL (4.0-5.20); Red Cell Distribution Width 16.5 % (11.8-14.3); White Blood Cell 6.8 10^3/uL (4.4-10.8)
[2024-02-22 11:07] LABS: Blood Urea Nitrogen 8 mg/dL (9-23); Chloride 111 mmol/L (98-107); HDL Cholesterol 39 mg/dL (40-59); Triglycerides 164 mg/dL (< 150)
[2024-02-24 16:44] LABS: Urine Bacteria FEW /hpf (None Seen); Urine Blood Negative /uL (Negative); Urine Clarity Clear (Clear); Urine Color Yellow (Yellow); Urine Mucus FEW (None Seen); Urine Protein, UAD TRACE (Negative); Urine Specific Gravity 1.031 (1.001-1.035); Urine Squamous Epithelial Cell FEW /hpf (<5); Urine Urobilinogen 2 mg/dL (Negative); Urine WBC 18 /hpf (0 - 5)
== END | disposition home or self-care (01) ==
LOC: LAB 09:28
DX: I12.9 Hypertensive chronic kidney disease with stage 1 through stage 4 chronic kidney disease, or unspecified chronic kidney disease (principal); N18.30 Chronic kidney disease, stage 3 unspecified; N39.0 Urinary tract infection, site not specified; E55.9 Vitamin D deficiency, unspecified; E78.5 Hyperlipidemia, unspecified; R73.9 Hyperglycemia, unspecified
CPT/HCPCS: 36415; 80053; 80061; 81001; 83036; 84439; 84443; 85025; 87086

== ENCOUNTER 2024-04-05 18:59 | Emergency (ER) | payer OTHER, MEDICAID ==
[~2024-04-05] VITALS: Ht 162.6 cm; Wt 72.3 kg
[2024-04-05 19:53] VITALS: BP 172/82; PULSE 93; RESP 19; TEMP 97.4; O2SAT 95
--- NOTE | 2024-04-05 20:06 | DVH ---
EXAM: CT HEAD WITHOUT CONTRAST INDICATION: headache TECHNIQUE: CT of the head without intravenous contrast. Radiation Dose : 1. Head: CT Dose: CTDI volume is 49.06 mGy. Dose-length product is 786.74 mGy*cm The dose indicators for CT are the volume Computed Tomography (CT) Dose Index (CTDIvol) and the Dose Length Product (DLP), and are measured in units of mGy and mGy-cm, respectively. These indicators are not patient dose, but values generated from the CT scanner acquisition factors. The report includes radiation exposure data for exposures received during this examination. COMPARISON: CT HEAD WITHOUT CONTRAST on DOS: 11/15/22, CT HEAD WITHOUT CONTRAST on DOS: 07/20/22, CT HE AD WITHOUT CONTRAST on DOS: 06/12/22, HEAD WITHOUT CONTRAST on DOS: 08/03/21, HEAD WITHOUT CONTRAST on DOS: 05/31/21 FINDINGS: There is no evidence of acute intracranial hemorrhage, extra-axial collection, mass effect, midline s hift, herniation or hydrocephalus. The ventricles, sulci and cisterns are age appropriate. The segura-white differentiation is intact. Patchy periventricular and subcortical white matter hypoattenuation is nonspecific but may be related to small vessel ischemic disease. The visualized paranasal sinuses and mastoid air cells are clear. The surrounding soft tissues and osseous structures are unremarkable. IMPRESSION: 1. No acute intracranial abnormality. Radiation optimization: All CT scans at this facility use at least one of these dose optimization kathy hniques: automated exposure control mA and/or kV adjustment per patient size (includes targeted exam s where dose is matched to clinical indication) or iterative reconstruction.
[2024-04-05] MEDS: ACETAMINOPHEN/CODEINE#3 (300/30mg) TAB PO ONE (20:25)
[2024-04-05] MEDS: ONDANSETRON ODT 4 MG TAB PO ONE (20:26)
[2024-04-05] MEDS ORDERED: ACE3T PO (20:46)
--- NOTE | 2024-04-05 20:46 | ED.PDOC ---
HPI (NEURO) HPI Comments 73-year-old female presents to ER with complaints of headache x2 days. Patient with past medical history significant for migraine/tension headaches reports that she has been experiencing 8/10 headache diffuse to forehead x2 days. Reports that she has been taking Advil for her pain with slight relief. Patient presents to ER ambulatory on arrival, alert oriented x4, with steady gait, in no distress and states she has had similar symptoms in the past related to a tension headache. Denies fever, vomiting, vision changes, confusion, head injury/LOC, neck pain, numbness/tingling or any further symptoms/complaints Chief Complaint: Headache Time Seen by MD: 19:04 Primary Care Provider: REX SOTO Reviewed Notes: Nurses Notes, Medications, Allergies Information Source: Patient Mode of Arrival: Ambulatory Past Medical History PAST MEDICAL HISTORY: Anxiety, CKF, Depression, DM, High Lipids, HTN, TIA, UT I'S Past Medical History (Other): Migraines Tension headache Surgical History: Appendectomy, Cholecystectomy CLINIC OFFICE ASSISTANT History: No Pertinent CLINIC OFFICE ASSISTANT History Family History Family History: Unknown Social History Smoker: Non-Smoker Alcohol: Denies ETOH Use Drugs: Denies Drug Use Lives In: Home Constitutional: denies: chills, diaphoresis, fatigue, fever, malaise, sweats, weakness, others EENTM: denies: blurred vision, double vision, ear bleeding, ear discharge, ear drainage, ear pain, ear ringing, eye pain, eye redness, hearing loss, mouth pain, mouth swelling, nasal discharge, nose bleeding, nose congestion, nose pain, photophobia, tearing, throat pain, throat swelling, voice changes, others Respiratory: denies: cough, hemoptysis, orthopnea, SOB at rest, shortness of breath, SOB with excertion, stridor, wheezing, others Cardiovascular: denies: chest pain, dizzy spells, diaphoresis, Dyspnea on exertion, edema, irregular heart beat, left arm pain, lightheadedness, palpitations, PND, syncope, others Gastrointestinal: reports: others (As stated in HPI) Genitourinary: denies: abnormal vagina bleeding, burning, dyspareunia, dysuria, flank pain, frequency, hematuria, incontinence, pain, , vagina discharge, urgency, others Neurological: reports: others (As stated in HPI) Musculoskeletal: denies: back pain, gout, joint pain, joint swelling, muscle pain, muscle stiffness, neck pain, others Integumetry: denies: bruises, change in color, change in hair/nails, dryness, l aceration, lesions, lumps, rash, wounds, others Allergic/Immunocompromised: denies: Difficulty Healing, Frequent Infections, Hives, Itching, others Hematologic/Lymphatic: denies: anemia, blood clots, easy bleeding, easy bruising, swollen glands, others Endocrine: denies: excessive hunger, excessive sweating, excessive thirst, excessive urination, flushing, intolerance to cold, intolerance to heat, unexplained weight gain, unexplained weight loss, others Psychiatric: denies: anxiety, bipolar disorder, depression, hopeless, panic disorder, schizophrenia, sleepless, suicidal, others Physical Exam General Appearance: No Apparent Distress HEENT: Normal ENT Inspection, PERRL/EOMI, Pharynx Normal, TMs Normal Neck: Full Range of Motion, Non-Tender, Normal Respiratory: Chest Non-Tender, Lungs Clear, No Accessory Muscle Use, No Respir atory Distress, Normal Breath Sounds Cardiovascular: No Murmur, No Gallop, Regular Rate/Rhythm Breast Exam: Deferred Gastrointestinal: NOT DONE Genitalia: Deferred Pelvic: Deferred Rectal: Deferred Extremities: Normal capillary refill, Normal range of motion Neurologic: Alert, associate professor II-XII nml as Tested, No Motor Deficits, Normal Affect, Normal Mood, No Sensory Deficits Cerebellar Function: Normal Reflexes: Normal Skin: Dry, Normal Color, Warm Lymphatic: No Adenopathy Was a procedure done? Was a procedure done?: No Sedation Sedation?: No Differential Diagnosis (SZ) Headache: Subarachnoid Hemorrhage, Subdural Hemorrhage, Mass Lesion X-Ray, Labs, Meds, VS Vital Signs Date Time Temp Pulse Resp B/P (MAP) Pulse Ox O2 Delivery O2 Flow Rate FiO2 04/05/24 19:53 93 19 95 Room Air 04/05/24 19:53 97.4 93 19 172/82 (112) 95 97.4 04/05/24 19:22 97.4 93 19 172/82 (112) 95 Current Medications Medications (Trade) Dose Ordered Sig/Haroldo Route Start Time Stop Time Status Last Admin Acetaminophen/ Codeine Phosphate (Tylenol W/Cod #3 Tablet) 1 tab ONCE ONCE PO 04/05/24 20:00 04/05/24 20:01 DC 04/05/24 20:25 Ondansetron HCl (Zofran Po) 4 mg ONCE ONCE PO 04/05/24 20:00 04/05/24 20:01 DC 04/05/24 20:26 PATIENT: RENAN OROZCO ACCT: [id number] UNIT: [id number] : 1950 LOC: ER ROOM / BED: / AGE / SEX: 73 / F ADM STATUS: REG ER SERVICE 07 ORDERING PHYSICIAN: GOLD GUERRERO PROCEDURE(s): HWOCT - HEAD WITHOUT CONTRAST REASON: headache ORDER NUMBER(s): [id number], ACCESSION NUMBER(s): [id number] EXAM: CT HEAD WITHOUT CONTRAST INDICATION: headache TECHNIQUE: CT of the head without intravenous contrast. Radiation Dose : 1. Head: CT Dose: CTDI volume is 49.06 mGy. Dose-length product is 786.74 mGy*cm The dose indicators for CT are the volume Computed Tomography (CT) Dose Index (CTDIvol) and the Dose Length Product (DLP), and are measured in units of mGy and mGy-cm, respectively. These indicators are not patient dose, but values generated from the CT scanner acquisition factors. The report includes radiation exposure data for exposures received during this examination. COMPARISON: CT HEAD WITHOUT CONTRAST on DOS: 11/15/22, CT HEAD WITHOUT CONTRAST on DOS: 07/20/22, CT HEAD WITHOUT CONTRAST on DOS: 06/12/22, HEAD WITHOUT CONTRAST on DOS: 08/03/21, HEAD WITHOUT CONTRAST on DOS: 05/31/21 FINDINGS: There is no evidence of acute intracranial hemorrhage, extra-axial collection, mass effect, midline shift, herniation or hydrocephalus. The ventricles, sulci and cisterns are age appropriate. The segura-white differentiation is intact. Patchy periventricular and subcortical white matter hypoattenuation is nonspecific but may be related to small vessel ischemic disease. The visualized paranasal sinuses and mastoid air cells are clear. The surrounding soft tissues and osseous structures are unremarkable. IMPRESSION: 1. No acute intracranial abnormality. Radiation optimization: All CT scans at this facility use at least one of these dose optimization techniques: automated exposure control mA and/or kV adjustment per patient size (includes targeted exams where dose is matched to clinical indication) or iterative reconstruction. ATED BY: ROWENA MERCER MD DICTATED DATE/TIME: 04/05/242002 SIGNED BY: ROWENA MERCER MD SIGNED DATE/TIME: 04/05/242002 CC: CT head without contrast reviewed Tylenol #3 one tablet p.o. ordered Zofran 4 mg p.o. ordered Patient had improvement in symptoms and in no distress prior to discharge Advised to drink plenty of fluids Advised to follow up with PCP in 1-2 days Patient alert and oriented x4 prior to discharge. Patient verbalized understanding and agreeable with current plan of care Advised to return to ER immediately if symptoms worsen Images Reviewed?: Images reviewed and evaluated by me Time of 1ST Reevaluation: 20:20 Reevaluation 1ST: N/A Patient Education/Counseling: Diagnosis, Treatment, Prognosis, Need For Follow Up Family Education/Counseling: No Family Present Departure 1 Departure Time of Disposition: 20:42 Impression: Primary Impression: Tension headache Disposition: 01 HOME / SELF CARE / HOMELESS Condition: Stable e-Prescriptions Acetaminophen W/ Codeine (Tylenol W/Cod #3) 1 Tab Tb 1 TAB PO Q6HPRN, #10 TAB 0 Refills Prov: GOLD GUERRERO 04/05/24 Discharged With: Friend Critical Care Note Critical Care Time?: No Stability Stability form required: No Heart Score Heart Score: Heart Score Response (Comments) Value History N/A 0 EKG N/A 0 Age N/A 0 Risk Factors N/A 0 Troponin N/A 0 Total 0 GOLD GUERRERO Apr 05, 2024 20:46
== END 2024-04-05 21:43 | disposition home or self-care (01) ==
LOC: ER 18:59
DX: G44.209 Tension-type headache, unspecified, not intractable (principal); I12.0 Hypertensive chronic kidney disease with stage 5 chronic kidney disease or end stage renal disease; E11.22 Type 2 diabetes mellitus with diabetic chronic kidney disease; N18.5 Chronic kidney disease, stage 5; Z86.73 Personal history of transient ischemic attack (TIA), and cerebral infarction without residual deficits; Z87.440 Personal history of urinary (tract) infections; Z90.49 Acquired absence of other specified parts of digestive tract; Z98.890 Other specified postprocedural states
CPT/HCPCS: 70450; 99284; Q0162

== ENCOUNTER → 2024-07-03 | Outpatient (CLI) | payer OTHER ==
[~2024-07-03] MED LIST changes: +ACE3T PO
[2024-07-03 09:17] LABS: Urine Blood Negative /uL (Negative); Urine Clarity Clear (Clear); Urine Color Yellow (Yellow); Urine Protein, UAD Negative (Negative); Urine Specific Gravity 1.024 (1.001-1.035); Urine Urobilinogen Normal (Negative); Urine pH 6.5 (5.0-9.0)
[2024-07-03 09:30] LABS: Basophils # (auto) 0 10 ^3/uL (0-0.2); Eosinophils # (auto) 0.2 10 ^3/uL (0-0.8); Monocytes # (auto) 0.7 10 ^3/uL (0-1.3); Neutrophils # (auto) 4.4 10 ^3/uL (1.6-8.6); White Blood Cell 7.3 10^3/uL (4.4-10.8)
[2024-07-03 09:32] LABS: Basophils % (auto) 0.7 % (0.0-2.0); Eosinophils % (auto) 3.1 % (0.0-7.0); Hematocrit 39.7 % (36.0-46.0); Hemoglobin 12.9 g/dL (12.2-16.2); Lymphocytes % (auto) 27.3 % (10.0-50.0); Mean Corpuscular Hemoglobin 26.6 pg (28.0-32.0); Mean Corpuscular Hgb Conc. 32.6 g/dL (32.0-36.0); Mean Corpuscular Volume 81.8 fL (80.0-100.0); Monocytes % (auto) 9.2 % (0.0-12.0); Neutrophils % (auto) 59.7 % (37.0-80.0); Platelet Count (auto) 229 10^3/uL (140-450); Red Blood Cells 4.86 10^6/uL (4.0-5.20)
[2024-07-03 09:40] LABS: Alanine Aminotransferase 25 U/L (7-40); Albumin 4.3 g/dL (3.2-4.8); Alkaline Phosphatase 79 U/L (46-116); Anion Gap 6 (5-15); Aspartate Aminotransferase 24 U/L (13-40); BUN/Creatinine Ratio 12.8 (10.0-20.0); Bilirubin, Total 0.4 mg/dL (0.2-1.0); Blood Urea Nitrogen 12 mg/dL (9-23); Calcium 9.4 mg/dL (8.7-10.4); Carbon Dioxide 26 mmol/L (20-31); Chloride 108 mmol/L (98-107); Cholesterol 154 mg/dL (< 200); Glucose 99 mg/dL (74-106); HDL Cholesterol 57 mg/dL (40-59); LDL Cholesterol 82 mg/dL (< 100); Potassium 4.1 mmol/L (3.5-5.1); Sodium 140 mmol/L (136-145); Triglycerides 109 mg/dL (< 150)
== END | disposition home or self-care (01) ==
LOC: LAB 08:48
PROVIDERS: ATTEND Nurse Practitioner Family
DX: I10 Essential (primary) hypertension (principal); E78.5 Hyperlipidemia, unspecified; E03.9 Hypothyroidism, unspecified; N39.0 Urinary tract infection, site not specified; R73.03 Prediabetes; Z79.899 Other long term (current) drug therapy
CPT/HCPCS: 36415; 80053; 80061; 81003; 82306; 83036; 84439; 84443; 85025; 87086

== ENCOUNTER → 2024-10-27 | Outpatient (CLI) | payer OTHER ==
[2024-10-27 10:22] LABS: Hemoglobin 14.6 g/dL (12.2-16.2); Nucleated Red Blood Cells % 0.1 %
[2024-10-27 10:23] LABS: Hematocrit 44.6 % (36.0-46.0); Mean Corpuscular Hemoglobin 26.3 pg (28.0-32.0); Mean Corpuscular Volume 80.1 fL (80.0-100.0)
[2024-10-27 10:27] LABS: Urine Protein, UAD Negative (Negative)
[2024-10-27 10:49] LABS: Alanine Aminotransferase 20 U/L (7-40); Alkaline Phosphatase 93 U/L (46-116); Anion Gap 8 (5-15); BUN/Creatinine Ratio 9.4 (10.0-20.0); Blood Urea Nitrogen 11 mg/dL (9-23); Calcium 9.8 mg/dL (8.7-10.4); Carbon Dioxide 28 mmol/L (20-31); Chloride 103 mmol/L (98-107); Cholesterol 168 mg/dL (< 200); Glucose 99 mg/dL (74-106); Potassium 4.5 mmol/L (3.5-5.1); Sodium 139 mmol/L (136-145); Triglycerides 119 mg/dL (< 150)
[2024-10-27 10:51] LABS: Bilirubin, Total 0.6 mg/dL (0.2-1.0)
[2024-10-27 10:54] LABS: Albumin 4.9 g/dL (3.2-4.8); HDL Cholesterol 63 mg/dL (40-59); Total Protein 8.3 g/dL (5.7-8.2)
== END | disposition home or self-care (01) ==
LOC: LAB 10:01
PROVIDERS: ATTEND Nurse Practitioner Family
DX: I10 Essential (primary) hypertension (principal); E78.5 Hyperlipidemia, unspecified; N39.0 Urinary tract infection, site not specified; E55.9 Vitamin D deficiency, unspecified; E03.9 Hypothyroidism, unspecified; Z79.899 Other long term (current) drug therapy
CPT/HCPCS: 36415; 80053; 80061; 81001; 82306; 83036; 84439; 84443; 85025

== ENCOUNTER 2024-11-15 10:32 | Outpatient (CLI) | payer OTHER ==
[2024-11-15 11:07] LABS: Urine Protein, UAD Negative (Negative)
[2024-11-15 11:35] LABS: Alanine Aminotransferase 19 U/L (7-40); Albumin 4.3 g/dL (3.2-4.8); Alkaline Phosphatase 84 U/L (46-116); Anion Gap 9 (5-15); BUN/Creatinine Ratio 13.3 (10.0-20.0); Blood Urea Nitrogen 16 mg/dL (9-23); Calcium 9.3 mg/dL (8.7-10.4); Carbon Dioxide 27 mmol/L (20-31); Chloride 104 mmol/L (98-107); Glucose 96 mg/dL (74-106); Potassium 4.0 mmol/L (3.5-5.1); Sodium 140 mmol/L (136-145); Total Protein 7.2 g/dL (5.7-8.2)
[2024-11-15 11:36] LABS: Bilirubin, Total 0.3 mg/dL (0.2-1.0)
== END 2024-11-15 17:00 | disposition home or self-care (01) ==
LOC: LAB 10:32
PROVIDERS: ATTEND Nurse Practitioner Family
DX: N18.30 Chronic kidney disease, stage 3 unspecified (principal); Z79.899 Other long term (current) drug therapy
CPT/HCPCS: 36415; 80053; 81003; 87086